=== PATIENT | female | born 1945 | race Caucasian/White ===

== ENCOUNTER → 2016-09-10 | Outpatient (CLI) | payer MEDICARE, MEDICAID ==
[~2016-09-10] MED LIST: ADV500INH INH; ASPI81CH PO; CELE-19 PO; CRES40TA PO; DRIS50002 PO; FLON0.054; I-VITAB PO; LANO250T9 PO; LIDO5DIS36 TD; LOPR50TA PO; MOM30SS PO; MUCI600T34 PO; NICO7DIS4 TD; NORT25CA2 PO; OMEP40CA2 PO; PAXI20TA3 PO; PERC10TA17 PO; PROA1AER INH; PROVENTIL; QNAS80AE; RAMI5CA PO; SING10TA32 PO; SPIR1CAP INH; TYLE325T5 PO; XANA0.25 PO; XARE20TA PO
--- NOTE | 2016-09-10 11:34 | REP ---
Clinical: COPD. Technique: PA and lateral. Comparison: 07/19/2014. Findings: Mediastinum and cardiac silhouette are stable. Lung mclean demonstrate chronic interstitial changes and fibrosis. Evidence for old healed left rib fractures with associated pleural thickening as well as centrally calcified granuloma in the right mid lung zone stable compared to 2013. No obvious acute consolidation, effusion, or pneumothorax. Impression: Chronic stable changes. No obvious acute cardiopulmonary process. Signed by Raciel Cardenas MD 09/10/2016 11:25 A
== END ==
LOC: M SMT 10:48
PROVIDERS: ATTEND Internal Medicine Pulmonary Disease
DX: J44.9 Chronic obstructive pulmonary disease, unspecified (principal)

== ENCOUNTER → 2016-09-11 | Outpatient (REF) | payer MEDICARE, MEDICAID ==
[~2016-09-11] MED LIST changes: +LANO250T12 PO; -LANO250T9 PO; +LOPR1TAB6 PO; -LOPR50TA PO
[2016-09-11 12:44] LABS: BASO % 0.5 % (0.0-1.0); EOS # 0.1 K/mm3 (0.0-0.50); EOS % 1.4 % (0.0-3.0); LARGE UNSTAINED CELL # 0.1 K/mm3 (0.0-0.4); LARGE UNSTAINED CELL % 0.9 % (0.0-4.0); LYMPH # 1.2 K/mm3 (1.5-4.5); LYMPH % 13.6 % (24.0-44.0); MEAN CORPUSCULAR HEMOGLOBIN 29.9 pg (27.0-33.0); MEAN CORPUSCULAR HGB CONC 33.5 g/dl (32.0-36.5); MEAN CORPUSCULAR VOLUME 89.2 fl (80.0-96.0); MONO # 0.5 K/mm3 (0.0-0.8); MONO % 5.7 % (0.0-5.0); NEUTROPHILS # 7.1 K/mm3 (1.8-7.7); NEUTROPHILS % 77.9 % (36.0-66.0); PLATELET COUNT, AUTOMATED 275 k/mm3 (150-450); RED CELL DISTRIBUTION WIDTH 13.3 % (11.5-14.5); WHITE BLOOD COUNT 9.1 K/mm3 (4.0-10.0)
[2016-09-11 13:07] LABS: ALBUMIN 3.3 GM/DL (3.2-5.2); ALKALINE PHOSPHATASE 109 U/L (45-117); ALT/SGPT 20 U/L (12-78); ANION GAP 10 MEQ/L (8-16); AST/SGOT 18 U/L (15-37); BILIRUBIN,TOTAL 0.4 MG/DL (0.2-1.0); BLOOD UREA NITROGEN 9 MG/DL (7-18); CALCIUM LEVEL 9.1 MG/DL (8.8-10.2); CARBON DIOXIDE LEVEL 30 MEQ/L (21-32); CHLORIDE LEVEL 101 MEQ/L (98-107); CHOLESTEROL LEVEL 173 MG/DL (<200); CREATININE FOR GFR 0.63 MG/DL (0.55-1.02); GLOMERULAR FILTRATION RATE > 60.0 (>39); GLUCOSE, FASTING 120 MG/DL (83-110); POTASSIUM SERUM 4.2 MEQ/L (3.5-5.1); SODIUM LEVEL 141 MEQ/L (136-145); TOTAL PROTEIN 6.6 GM/DL (6.4-8.2); TRIGLYCERIDES LEVEL 246 MG/DL (<150)
== END ==
LOC: M SFHCPLAZ 09:35
PROVIDERS: ATTEND Family Medicine
DX: D48.9 Neoplasm of uncertain behavior, unspecified (principal); Z79.891 Long term (current) use of opiate analgesic; Z79.899 Other long term (current) drug therapy

== ENCOUNTER → 2016-11-20 | Outpatient (REF) | payer MEDICARE, MEDICAID ==
[2016-11-20 16:05] LABS: BASO % 0.5 % (0.0-1.0); EOS # 0.2 K/mm3 (0.0-0.50); EOS % 3.5 % (0.0-3.0); LARGE UNSTAINED CELL # 0.1 K/mm3 (0.0-0.4); LARGE UNSTAINED CELL % 1.3 % (0.0-4.0); LYMPH # 1.9 K/mm3 (1.5-4.5); LYMPH % 25.7 % (24.0-44.0); MEAN CORPUSCULAR HEMOGLOBIN 29.8 pg (27.0-33.0); MEAN CORPUSCULAR HGB CONC 33.3 g/dl (32.0-36.5); MEAN CORPUSCULAR VOLUME 89.6 fl (80.0-96.0); MONO # 0.5 K/mm3 (0.0-0.8); MONO % 6.3 % (0.0-5.0); NEUTROPHILS # 4.5 K/mm3 (1.8-7.7); NEUTROPHILS % 62.7 % (36.0-66.0); PLATELET COUNT, AUTOMATED 384 k/mm3 (150-450); RED CELL DISTRIBUTION WIDTH 13.4 % (11.5-14.5); WHITE BLOOD COUNT 7.2 K/mm3 (4.0-10.0)
[2016-11-20 16:47] LABS: VITAMIN B12 LEVEL > 2000 PG/ML (247-911)
[2016-11-20 16:49] LABS: DIGOXIN LEVEL 1.3 NG/ML (0.5-2.0); FERRITIN 214 NG/ML (8-252); TOTAL IRON BINDING CAPACITY 303 UG/DL (250-450)
== END ==
LOC: M SFHCPLAZ 13:16
PROVIDERS: ATTEND Family Medicine
DX: I10 Essential (primary) hypertension (principal); Z79.899 Other long term (current) drug therapy

== ENCOUNTER → 2016-12-22 | Outpatient (REF) | payer MEDICARE, MEDICAID ==
[~2016-12-22] MED LIST changes: -LANO250T12 PO; +LANO250T15 PO
[2016-12-22 16:27] LABS: ALBUMIN 3.1 GM/DL (3.2-5.2); ALBUMIN/GLOBULIN RATIO 0.89 (1.00-1.93); ALKALINE PHOSPHATASE 136 U/L (45-117); ALT/SGPT 34 U/L (12-78); ANION GAP 7 MEQ/L (8-16); AST/SGOT 20 U/L (15-37); BILIRUBIN,TOTAL 0.2 MG/DL (0.2-1.0); BLOOD UREA NITROGEN 6 MG/DL (7-18); CALCIUM LEVEL 8.7 MG/DL (8.8-10.2); CARBON DIOXIDE LEVEL 27 MEQ/L (21-32); CHLORIDE LEVEL 104 MEQ/L (98-107); FREE T4 0.96 NG/DL (0.76-1.46); GLOMERULAR FILTRATION RATE > 60.0 (>39); GLUCOSE, FASTING 127 MG/DL (83-110); POTASSIUM SERUM 4.3 MEQ/L (3.5-5.1); SODIUM LEVEL 138 MEQ/L (136-145); TOTAL PROTEIN 6.6 GM/DL (6.4-8.2)
== END ==
LOC: M LABDRAW1 14:38
PROVIDERS: ATTEND Family Medicine
DX: E55.9 Vitamin D deficiency, unspecified (principal); E78.5 Hyperlipidemia, unspecified; I48.91 Unspecified atrial fibrillation; R73.01 Impaired fasting glucose

== ENCOUNTER → 2017-01-08 | Outpatient (CLI) | payer MEDICARE ==
[~2017-01-08] MED LIST changes: +CONRAY-43 43% 50ML VIAL (Q9960) As Ordered ONE; +LIDOCAINE 1% MDV 20ML VIAL As Ordered ONE; +TRIAMCINOLONE ACETONIDE SUSP 40 MG/ML VIAL (J3301) As Ordered ONE
--- NOTE | 2017-01-08 17:47 | REP ---
RIGHT HIP INJECTION: The procedure was performed under the direct supervision of Dr. Robledo. The benefits and risks including but not limited to pain, infection, bleeding, and anaphylaxis were explained to the patient and informed consent was obtained. The right femoral neck was localized using fluoroscopic guidance. The skin was prepped and draped in a sterile fashion. 1% Lidocaine was used as a local anesthetic. Using fluoroscopic guidance a 22-gauge spinal needle was inserted and advanced to the femoral neck. 0.5 mL of Conray-43 was injected to verify placement. 6 mL of a solution containing 5 mL of 1% Lidocaine and 1 mL of Kenalog 40 mg was injected. The needle was then removed. The patient tolerated the procedure well and there were no immediate complications. 3 second of fluoroscopic time was utilized for this procedure. Reviewed by MARINA Hill 01/09/2017 04:55 PEdited and Signed by Ronny Robledo MD 01/09/2017 07:53 P
== END | disposition home or self-care (01) ==
LOC: M RADPRO 10:38
PROVIDERS: ATTEND Family Medicine
DX: M16.11 Unilateral primary osteoarthritis, right hip (principal)
CPT/HCPCS: 20610; 77002; J3301; Q9960

== ENCOUNTER → 2017-04-06 | Outpatient (REF) | payer MEDICARE, MEDICAID ==
[~2017-04-06] MED LIST changes: -CELE-19 PO; +CELE1CAP4 PO; -CONRAY-43 43% 50ML VIAL (Q9960) As Ordered ONE; -LIDO5DIS36 TD; +LIDO5DIS41 TD; -LIDOCAINE 1% MDV 20ML VIAL As Ordered ONE; -MUCI600T34 PO; +MUCI600T37 PO; +PAXI20TA29 PO; -PAXI20TA3 PO; -PERC10TA17 PO; +PERC10TA26 PO; -PROA1AER INH; +PROAAER10 INH; -TRIAMCINOLONE ACETONIDE SUSP 40 MG/ML VIAL (J3301) As Ordered ONE
[2017-04-06 12:46] LABS: BASO % 0.4 % (0.0-1.0); EOS # 0.1 K/mm3 (0.0-0.50); EOS % 1.6 % (0.0-3.0); LARGE UNSTAINED CELL # 0.1 K/mm3 (0.0-0.4); LARGE UNSTAINED CELL % 1.1 % (0.0-4.0); LYMPH # 1.4 K/mm3 (1.5-4.5); LYMPH % 18.9 % (24.0-44.0); MEAN CORPUSCULAR HEMOGLOBIN 30.6 pg (27.0-33.0); MEAN CORPUSCULAR HGB CONC 33.7 g/dl (32.0-36.5); MEAN CORPUSCULAR VOLUME 90.7 fl (80.0-96.0); MONO # 0.4 K/mm3 (0.0-0.8); MONO % 4.9 % (0.0-5.0); NEUTROPHILS # 5.4 K/mm3 (1.8-7.7); NEUTROPHILS % 73.1 % (36.0-66.0); PLATELET COUNT, AUTOMATED 313 k/mm3 (150-450); RED CELL DISTRIBUTION WIDTH 13.5 % (11.5-14.5); WHITE BLOOD COUNT 7.4 K/mm3 (4.0-10.0)
[2017-04-06 13:19] LABS: ALBUMIN 3.4 GM/DL (3.2-5.2); ALBUMIN/GLOBULIN RATIO 0.97 (1.00-1.93); ALKALINE PHOSPHATASE 120 U/L (45-117); ALT/SGPT 39 U/L (12-78); ANION GAP 7 MEQ/L (8-16); AST/SGOT 32 U/L (15-37); BILIRUBIN,TOTAL 0.5 MG/DL (0.2-1.0); BLOOD UREA NITROGEN 9 MG/DL (7-18); CALCIUM LEVEL 9.1 MG/DL (8.8-10.2); CARBON DIOXIDE LEVEL 31 MEQ/L (21-32); CHLORIDE LEVEL 104 MEQ/L (98-107); CREATININE FOR GFR 0.62 MG/DL (0.55-1.02); DIGOXIN LEVEL 1.6 NG/ML (0.5-2.0); FERRITIN 120 NG/ML (8-252); GLOMERULAR FILTRATION RATE > 60.0 (>39); GLUCOSE, FASTING 97 MG/DL (83-110); SODIUM LEVEL 142 MEQ/L (136-145); TOTAL IRON BINDING CAPACITY 343 UG/DL (250-450); TOTAL PROTEIN 6.9 GM/DL (6.4-8.2)
[2017-04-07 08:44] LABS: CARCINOEMBRYONIC ANTIGEN 1.3 NG/ML (<2.5)
== END ==
LOC: M LABDRAW1 11:54
PROVIDERS: ATTEND Family Medicine
DX: R63.4 Abnormal weight loss (principal); I48.91 Unspecified atrial fibrillation; Z79.899 Other long term (current) drug therapy

== ENCOUNTER → 2017-05-14 | Outpatient (CLI) | payer MEDICARE, MEDICAID ==
[~2017-05-14] MED LIST changes: +CONRAY-43 43% 50ML VIAL (Q9960) As Ordered ONE; +LIDOCAINE 1% MDV 20ML VIAL As Ordered ONE; +TRIAMCINOLONE ACETONIDE SUSP 40 MG/ML VIAL (J3301) As Ordered ONE
--- NOTE | 2017-05-14 16:52 | REP ---
Right hip injection The procedure was performed under the direct supervision of Dr. Adams. The benefits and risks including but not limited to pain infection and bleeding and anaphylaxis were explained to the patient and informed consent was obtained. The right femoral neck was localized using fluoroscopic guidance. The skin was prepped and draped in a sterile fashion. 1% lidocaine was used as a local anesthetic. Using fluoroscopic guidance a 22-gauge spinal needle was inserted and advanced to the femoral neck. 0.5 ml of Conray 43 was injected to verify placement. 6 ml of a solution containing 5 ml of 1% Xylocaine and 1 ml of Kenalog 40 mg was injected. The needle was then removed. The patient tolerated the procedure well and there were no immediate complications. 2 seconds of fluoro time was utilized for this procedure. Reviewed by MARINA Hill 05/14/2017 03:00 PSigned by Frankie Adams MD 05/14/2017 04:43 P
== END | disposition home or self-care (01) ==
LOC: M RADPRO 08:47
PROVIDERS: ATTEND Family Medicine
DX: M16.11 Unilateral primary osteoarthritis, right hip (principal)
CPT/HCPCS: 20611; 77002; J3301; Q9960

== ENCOUNTER → 2017-08-19 | Outpatient (REF) | payer MEDICARE, MEDICAID ==
[~2017-08-19] MED LIST changes: -CONRAY-43 43% 50ML VIAL (Q9960) As Ordered ONE; -LIDOCAINE 1% MDV 20ML VIAL As Ordered ONE; -TRIAMCINOLONE ACETONIDE SUSP 40 MG/ML VIAL (J3301) As Ordered ONE
[2017-08-19 15:54] LABS: BASO % 0.6 % (0.0-1.0); EOS # 0.1 10^3/uL (0.0-0.50); EOS % 1.5 % (0.0-3.0); IMMATURE GRANULOCYTE % 0.3 % (0-0); LYMPH # 1.6 10^3/uL (1.5-4.5); LYMPH % 22.3 % (24.0-44.0); MEAN CORPUSCULAR HGB CONC 33.3 g/dl (32.0-36.5); MEAN CORPUSCULAR VOLUME 89.9 fl (80.0-96.0); MONO # 0.6 10^3/uL (0.0-0.8); MONO % 7.9 % (0.0-5.0); NEUTROPHILS # 4.9 10^3/uL (1.8-7.7); NEUTROPHILS % 67.4 % (36.0-66.0); PLATELET COUNT, AUTOMATED 311 10^3/uL (150-450); RED CELL DISTRIBUTION WIDTH 13.6 % (11.5-14.5); WHITE BLOOD COUNT 7.2 10^3/uL (4.0-10.0)
[2017-08-19 16:11] LABS: ALBUMIN 3.3 GM/DL (3.2-5.2); ALBUMIN/GLOBULIN RATIO 0.94 (1.00-1.93); ALKALINE PHOSPHATASE 97 U/L (45-117); ALT/SGPT 23 U/L (12-78); ANION GAP 5 MEQ/L (8-16); AST/SGOT 15 U/L (7-37); BILIRUBIN,TOTAL 0.3 MG/DL (0.2-1.0); BLOOD UREA NITROGEN 7 MG/DL (7-18); CALCIUM LEVEL 9.2 MG/DL (8.8-10.2); CARBON DIOXIDE LEVEL 32 MEQ/L (21-32); CHLORIDE LEVEL 105 MEQ/L (98-107); CREATININE FOR GFR 0.54 MG/DL (0.55-1.02); GLOMERULAR FILTRATION RATE > 60.0 (>39); GLUCOSE, FASTING 120 MG/DL (83-110); POTASSIUM SERUM 3.8 MEQ/L (3.5-5.1); SODIUM LEVEL 142 MEQ/L (136-145); TOTAL PROTEIN 6.8 GM/DL (6.4-8.2)
[2017-08-19 16:19] LABS: ERYTHROCYTE SEDIMENTATION RATE 17 mm/hr (0-30)
== END ==
LOC: M LABDRAW1 15:36
PROVIDERS: ATTEND Family Medicine
DX: R73.01 Impaired fasting glucose (principal); R63.4 Abnormal weight loss; J44.9 Chronic obstructive pulmonary disease, unspecified

== ENCOUNTER → 2017-08-20 | Outpatient (CLI) | payer MEDICARE, MEDICAID ==
--- NOTE | 2017-08-21 05:45 | REP ---
NONCONTRAST CT OF THE ABDOMEN AND PELVIS: CLINICAL: Right lower quadrant pain. COMPARISON: 02/03/2006. FINDINGS: Lung bases are clear. Atherosclerotic changes to the coronary arteries and aorta are identified without aortic aneurysm. Liver, spleen, pancreas, bilateral adrenal glands are normal for noncontrast evaluation. The right kidney is unremarkable. Left kidney includes 2 mm nonobstructing intrarenal calculus. There is no hydronephrosis or perinephric stranding. Evaluation of the enteric system is without obstruction or acute inflammatory process. Colonic and sigmoid diverticulosis noted without acute diverticulitis. A ventral hernia along the lateral aspect of the right rectus muscle measures approximately 4.0 cm and includes small amount of fat and fluid (images 77-96). Pelvis demonstrates normal bladder and age appropriate uterus/adnexa. No ascites. No adenopathy. No free air. Atherosclerotic changes to the abdominal aorta and vasculature without aneurysm. Musculoskeletal structures demonstrate age related degenerative changes without focal osseous abnormality. Calcifications and surgical clips are identified in the midline infraumbilical subcutaneous tissue which remains stable and may be related to prior surgery and chronic hernia. IMPRESSION: 1. Small 4 cm fat containing Spigelian hernia along the lateral aspect of the right rectus muscle at the level of the pelvis possibly related to patient's symptoms. 2. Diverticulosis without acute diverticulitis. 3. Further chronic changes as described above. Signed by Raciel Cardenas MD 08/22/2017 08:46 A
== END ==
LOC: M RAD 14:31
PROVIDERS: ATTEND Family Medicine
DX: R10.31 Right lower quadrant pain (principal); K57.30 Diverticulosis of large intestine without perforation or abscess without bleeding

== ENCOUNTER → 2017-10-28 | Outpatient (REF) | payer MEDICARE, MEDICAID ==
[2017-10-28 16:05] LABS: BASO % 0.4 % (0.0-1.0); EOS # 0.1 10^3/uL (0.0-0.50); EOS % 1.1 % (0.0-3.0); HEMATOCRIT 44.2 % (36.0-47.0); HEMOGLOBIN 14.4 g/dl (12.0-16.0); IMMATURE GRANULOCYTE % 0.2 % (0-3.0); LYMPH # 1.6 10^3/uL (1.5-4.5); LYMPH % 19.1 % (24.0-44.0); MEAN CORPUSCULAR HEMOGLOBIN 29.2 pg (27.0-33.0); MEAN CORPUSCULAR HGB CONC 32.6 g/dl (32.0-36.5); MEAN CORPUSCULAR VOLUME 89.7 fl (80.0-96.0); MONO # 0.6 10^3/uL (0.0-0.8); MONO % 7.3 % (0.0-5.0); NEUTROPHILS # 5.9 10^3/uL (1.8-7.7); NEUTROPHILS % 71.9 % (36.0-66.0); PLATELET COUNT, AUTOMATED 317 10^3/uL (150-450); RED BLOOD COUNT 4.93 10^6/uL (4.00-5.40); RED CELL DISTRIBUTION WIDTH 13.4 % (11.5-14.5); WHITE BLOOD COUNT 8.3 10^3/uL (4.0-10.0)
[2017-10-28 16:24] LABS: INR 1.23; PROTHROMBIN TIME 15.7 SECONDS (12.4-14.5)
[2017-10-28 16:25] LABS: PARTIAL THROMBOPLASTIN TIME 34.6 SECONDS (26.8-37.9)
[2017-10-28 16:26] LABS: ESTIMATED AVERAGE GLUCOSE 137 MG/DL (60-110); HEMOGLOBIN A1c 6.4 %
[2017-10-28 16:31] LABS: ALBUMIN 3.5 GM/DL (3.2-5.2); ALBUMIN/GLOBULIN RATIO 1.06 (1.00-1.93); ALKALINE PHOSPHATASE 122 U/L (45-117); ALT/SGPT 18 U/L (12-78); ANION GAP 6 MEQ/L (8-16); AST/SGOT 16 U/L (7-37); BILIRUBIN,TOTAL 0.4 MG/DL (0.2-1.0); BLOOD UREA NITROGEN 7 MG/DL (7-18); CALCIUM LEVEL 9.2 MG/DL (8.8-10.2); CARBON DIOXIDE LEVEL 30 MEQ/L (21-32); CHLORIDE LEVEL 107 MEQ/L (98-107); GLOMERULAR FILTRATION RATE > 60.0 (>39); GLUCOSE, FASTING 75 MG/DL (70-100); MAGNESIUM LEVEL 2.1 MG/DL (1.8-2.4); POTASSIUM SERUM 4.6 MEQ/L (3.5-5.1); SODIUM LEVEL 143 MEQ/L (136-145); TOTAL PROTEIN 6.8 GM/DL (6.4-8.2)
== END ==
LOC: M LABDRAW1 15:39
DX: Z01.818 Encounter for other preprocedural examination (principal); Z79.899 Other long term (current) drug therapy
CPT/HCPCS: 83735

== ENCOUNTER → 2017-12-11 | Outpatient (CLI) | payer MEDICARE, MEDICAID ==
[~2017-12-11] MED LIST changes: -ADV500INH INH; -ASPI81CH PO; -CELE1CAP4 PO; +CONRAY-43 43% 50ML VIAL (Q9960) As Ordered; -CRES40TA PO; -DRIS50002 PO; -FLON0.054; -I-VITAB PO; -LANO250T15 PO; -LIDO5DIS41 TD; +LIDOCAINE 1% MDV 20ML VIAL As Ordered; -LOPR1TAB6 PO; -MOM30SS PO; -MUCI600T37 PO; -NICO7DIS4 TD; -NORT25CA2 PO; -OMEP40CA2 PO; -PAXI20TA29 PO; -PERC10TA26 PO; -PROAAER10 INH; -PROVENTIL; -QNAS80AE; -RAMI5CA PO; -SING10TA32 PO; -SPIR1CAP INH; +TRIAMCINOLONE ACETONIDE SUSP 40 MG/ML VIAL (J3301) As Ordered; -TYLE325T5 PO; -XANA0.25 PO; -XARE20TA PO
== END ==
LOC: M RADPRO 10:04
DX: M16.11 Unilateral primary osteoarthritis, right hip (principal)
CPT/HCPCS: 20610

== ENCOUNTER 2018-01-08 09:43 | Day surgery (SDC) | payer MEDICARE, MEDICAID ==
[2018-01-08] MEDS: LR 1,000 ML IV ×4 (10:41→16:45)
[2018-01-08] MEDS ORDERED: LEVALBUTEROL 1.25 MG/0.5 ML CONCENTRATE NEB As Ordered ×2 (11:17)
[2018-01-08] MEDS ORDERED: ROCURONIUM BROMIDE 50 MG/5 ML VIAL As Ordered ×2 (11:30)
[2018-01-08] MEDS ORDERED: METOCLOPRAMIDE INJ 10MG/2ML VIAL (J2765) As Ordered ×2 (11:30)
[2018-01-08] MEDS ORDERED: fentaNYL 100 MCG/2 ML INJECTION (J3010) As Ordered ×2 (11:30)
[2018-01-08] MEDS ORDERED: ONDANSETRON 4MG/2ML VIAL (J2405) As Ordered ×2 (11:30)
[2018-01-08] MEDS ORDERED: MIDAZOLAM INJ 2 MG/2 ML VIAL (J2250) As Ordered ×2 (11:30)
[2018-01-08] MEDS ORDERED: PROPOFOL 200 MG/20 ML VIAL As Ordered ×2 (11:30)
[2018-01-08] MEDS ORDERED: LIDOCAINE 2% INJ 100 MG/5 ML SDV (FOR ANES.) As Ordered ×2 (11:30)
[2018-01-08] MEDS: LEVALBUTEROL 1.25 MG/0.5 ML CONCENTRATE NEB INH ×2 (11:38)
[2018-01-08] MEDS: BUPIVACAINE LIPOSOME/PF 1.3% 20 ML VIAL (13.3MG/ML)(EXPAREL) As Ordered ×2 (11:52)
[2018-01-08] MEDS ORDERED: HYDROmorphone HCL 2 MG/ML 1ML VIAL (J1170) As Ordered ×2 (14:53)
[2018-01-08] MEDS ORDERED: ESMOLOL INJ 100MG/10ML VIAL As Ordered ×2 (15:01)
[2018-01-08] MEDS: BUPIVACAINE HCL 0.25% 30 ML VIAL As Ordered ×2 (15:13)
[2018-01-08] MEDS ORDERED: LABETALOL HCL 100 MG/20 ML VIAL As Ordered ×2 (15:57)
[2018-01-08] MEDS: LABETALOL HCL 100 MG/20 ML VIAL IV ×4 (15:58→16:05)
[2018-01-08] MEDS: LEVALBUTEROL 1.25 MG/0.5 ML CONCENTRATE NEB NEB ×2 (16:00)
[2018-01-08] MEDS ORDERED: fentaNYL 100 MCG/2 ML INJECTION (J3010) IV ×2 (16:45)
[2018-01-08] MEDS ORDERED: ONDANSETRON 4MG/2ML VIAL (J2405) IV ×2 (16:45)
[2018-01-08] MEDS ORDERED: PERCOCET 5MG/325MG TAB PO ×2 (16:45)
[2018-01-08] MEDS ORDERED: ACETAMINOPHEN TAB 650MG DOSE (2X325MG) PO ×2 (16:45)
[2018-01-08] MEDS ORDERED: HYDROMORPHONE HCL 0.5 MG/ 0.5 ML SYRINGE (J1170 PER 1) IV ×2 (16:45)
[2018-01-08] MEDS: NORCO, ANEXSIA 5/325MG TABLET (HYDROcodone/ACETAMINOPHEN) PO ×2 (20:28)
[2018-01-08] MEDS ORDERED: OMEPRAZOLE 20 MG CAP PO ×2 (21:45)
[2018-01-08] MEDS ORDERED: ALBUTEROL 90 MCG/ACT 8GM HFA INHALER INH ×2 (21:45)
[2018-01-09] MEDS: NORCO, ANEXSIA 5/325MG TABLET (HYDROcodone/ACETAMINOPHEN) PO ×4 (05:43→10:44)
[2018-01-09] MEDS: ADVAIR HFA 230/21MCG INHALER INH ×2 (07:45)
[2018-01-09] MEDS ORDERED: FLUTICASONE PROP 0.05% NASAL SPRAY 16 GM (FLONASE) ×2 (09:00)
[2018-01-09] MEDS: GABAPENTIN 300 MG CAP PO ×2 (10:43)
[2018-01-09] MEDS: METOPROLOL TART 50 MG TAB PO ×2 (10:43)
[2018-01-09] MEDS: DIGOXIN 0.25 MG TAB PO ×2 (10:45)
[2018-01-09] MEDS: PREVNAR 13 VACCINE SYRINGE (CPT CODE:90670) IM ×2 (14:15)
== END 2018-01-09 14:25 | disposition home or self-care (01) ==
LOC: M SDC 09:43 → M MSPAV 19:15
DX: K43.6 Other and unspecified ventral hernia with obstruction, without gangrene (principal); I48.91 Unspecified atrial fibrillation; I50.30 Unspecified diastolic (congestive) heart failure; G47.30 Sleep apnea, unspecified; I27.20 Pulmonary hypertension, unspecified; J44.9 Chronic obstructive pulmonary disease, unspecified; Z79.899 Other long term (current) drug therapy; Z79.02 Long term (current) use of antithrombotics/antiplatelets; M81.0 Age-related osteoporosis without current pathological fracture; F17.210 Nicotine dependence, cigarettes, uncomplicated; Z88.0 Allergy status to penicillin; F32.9 Major depressive disorder, single episode, unspecified; F41.9 Anxiety disorder, unspecified
CPT/HCPCS: 49653

== ENCOUNTER → 2018-02-23 | Outpatient (REF) | payer MEDICARE, MEDICAID ==
[2018-02-23 14:03] LABS: BASO % 0.2 % (0.0-1.0); EOS # 0.1 10^3/uL (0.0-0.50); HEMATOCRIT 40.9 % (36.0-47.0); HEMOGLOBIN 13.2 g/dl (12.0-15.5); IMMATURE GRANULOCYTE % 0.3 % (0-3.0); LYMPH # 1.1 10^3/uL (1.5-4.5); MEAN CORPUSCULAR HEMOGLOBIN 28.9 pg (27.0-33.0); MEAN CORPUSCULAR HGB CONC 32.3 g/dl (32.0-36.5); MEAN CORPUSCULAR VOLUME 89.5 fl (80.0-96.0); MONO # 0.6 10^3/uL (0.0-0.8); MONO % 5.3 % (0.0-5.0); NEUTROPHILS # 9.5 10^3/uL (1.8-7.7); NEUTROPHILS % 83.2 % (36.0-66.0); PLATELET COUNT, AUTOMATED 280 10^3/uL (150-450); RED BLOOD COUNT 4.57 10^6/uL (4.00-5.40); RED CELL DISTRIBUTION WIDTH 14.7 % (11.5-14.5); WHITE BLOOD COUNT 11.4 10^3/uL (4.0-10.0)
[2018-02-23 14:38] LABS: ALBUMIN 3.2 GM/DL (3.2-5.2); ALBUMIN/GLOBULIN RATIO 0.94 (1.00-1.93); ALKALINE PHOSPHATASE 105 U/L (45-117); ALT/SGPT 20 U/L (12-78); ANION GAP 4 MEQ/L (8-16); AST/SGOT 13 U/L (7-37); BILIRUBIN,TOTAL 0.3 MG/DL (0.2-1.0); BLOOD UREA NITROGEN 9 MG/DL (7-18); CALCIUM LEVEL 8.9 MG/DL (8.8-10.2); CARBON DIOXIDE LEVEL 32 MEQ/L (21-32); CHLORIDE LEVEL 105 MEQ/L (98-107); CREATININE FOR GFR 0.58 MG/DL (0.55-1.30); DIGOXIN LEVEL 1.6 NG/ML (0.5-2.0); GLOMERULAR FILTRATION RATE > 60.0 (>39); GLUCOSE, FASTING 126 MG/DL (70-100); SODIUM LEVEL 141 MEQ/L (136-145); TOTAL PROTEIN 6.6 GM/DL (6.4-8.2)
== END ==
LOC: M SFHCPLAZ 12:12
DX: R63.4 Abnormal weight loss (principal); Z79.899 Other long term (current) drug therapy
CPT/HCPCS: 80162

== ENCOUNTER 2018-05-19 05:45 | Inpatient (IN) | payer MEDICARE, MEDICAID ==
[2018-05-19] MEDS ORDERED: LR 1,000 ML IV (06:00)
[2018-05-19] MEDS: ACETAMINOPHEN 500 MG TAB PO (06:30)
[2018-05-19 06:46] LABS: GLUCOSE, FASTING 83 MG/DL (70-100)
[2018-05-19] MEDS: VANCOMYCIN HCL 1,000 MG, VIAL MATE ADAPTER 1 EACH in D5W 250 ML IV ×2 (07:00→18:26)
[2018-05-19] MEDS: TRANEXAMIC ACID 100 MG/ML 10ML VIAL As Ordered (07:12)
[2018-05-19] MEDS: EPINEPHrine INJ 1 MG/ML 1ML AMP As Ordered (07:13)
[2018-05-19] MEDS ORDERED: ALBUTEROL SULFATE 2.5 MG/0.5 ML INH NEB SOLN As Ordered (07:14)
[2018-05-19] MEDS: CLINDAMYCIN INJ 900MG/6ML VIAL As Ordered (08:19)
[2018-05-19] MEDS ORDERED: ROCURONIUM BROMIDE 50 MG/5 ML VIAL As Ordered (08:32)
[2018-05-19] MEDS ORDERED: ETOMIDATE INJ 20MG/10ML VIAL As Ordered (08:32)
[2018-05-19] MEDS ORDERED: LIDOCAINE 2% INJ 100 MG/5 ML SDV (FOR ANES.) As Ordered (08:32)
[2018-05-19] MEDS ORDERED: fentaNYL 100 MCG/2 ML INJECTION (J3010) As Ordered ×3 (08:32→10:44)
[2018-05-19] MEDS ORDERED: dexameTHASONE 4 MG/ML 1ML VIAL (J1100) As Ordered (08:32)
[2018-05-19] MEDS ORDERED: MIDAZOLAM INJ 2 MG/2 ML VIAL (J2250) As Ordered (08:32)
[2018-05-19] MEDS ORDERED: PROPOFOL 200 MG/20 ML VIAL As Ordered ×2 (08:32→09:38)
[2018-05-19] MEDS ORDERED: LABETALOL HCL 100 MG/20 ML VIAL As Ordered (08:35)
[2018-05-19] MEDS: LORATADINE 10 MG TAB PO (09:00)
[2018-05-19] MEDS ORDERED: ONDANSETRON 4MG/2ML VIAL (J2405) As Ordered (09:00)
[2018-05-19] MEDS ORDERED: MORPHINE 1MG/ML IN 0.9% NACL 100ML IV BAG As Ordered (09:11)
[2018-05-19] MEDS ORDERED: SUGAMMADEX SODIUM 500 MG/5 ML VIAL (BRIDION) As Ordered (09:38)
[2018-05-19] MEDS: fentaNYL 100 MCG/2 ML INJECTION (J3010) IV ×4 (09:44→09:59)
[2018-05-19] MEDS ORDERED: PERCOCET 5MG/325MG TAB As Ordered (09:49)
[2018-05-19] MEDS: PERCOCET 5MG/325MG TAB PO ×2 (09:50→23:15)
[2018-05-19] MEDS ORDERED: HYDROMORPHONE HCL 0.5 MG/ 0.5 ML SYRINGE (J1170 PER 1) As Ordered (09:52)
[2018-05-19] MEDS: LR 1,000 ML IV ×2 (10:00→11:15)
[2018-05-19] MEDS ORDERED: ONDANSETRON 4MG/2ML VIAL (J2405) IV ×3 (10:00→23:15)
[2018-05-19] MEDS: ALBUTEROL SULFATE 2.5 MG/0.5 ML INH NEB SOLN INH (10:00)
[2018-05-19] MEDS ORDERED: METOCLOPRAMIDE INJ 10MG/2ML VIAL (J2765) IV (10:00)
[2018-05-19] MEDS: HYDROMORPHONE HCL 0.5 MG/ 0.5 ML SYRINGE (J1170 PER 1) IV ×2 (10:04→10:10)
[2018-05-19] MEDS: MORPHINE 1MG/ML IN 0.9% NACL 100ML IV BAG IV (10:15)
[2018-05-19] MEDS ORDERED: diphenhydrAMINE INJ 50MG/ML VIAL (J1200) IV (10:45)
[2018-05-19] MEDS ORDERED: NALOXONE INJ 0.4 MG/1 ML VIAL (J2310) IV (10:45)
[2018-05-19] MEDS ORDERED: NALBUPHINE HCL 10 MG/ML AMP (J2300) IV (10:45)
[2018-05-19] MEDS ORDERED: EPIDURAL/PCA KEYS XX (10:45)
[2018-05-19] MEDS ORDERED: FLEET ENEMA PR (11:15)
[2018-05-19] MEDS ORDERED: ACETAMINOPHEN TAB 650MG DOSE (2X325MG) PO (11:15)
[2018-05-19] MEDS ORDERED: ALBUTEROL SULFATE 2.5 MG/0.5 ML INH NEB SOLN NEB (16:45)
[2018-05-19] MEDS: OLOPATADINE 0.1% OPHTH SOL 5ML(PATANOL) OU (17:00)
[2018-05-19] MEDS: IPRATROPIUM 0.5MG/ALBUTEROL 2.5MG INH SOL UD 3ML (DUONEB)(J7620) NEB (20:00)
[2018-05-19] MEDS: LACTULOSE 20 GM/30 ML SYRUP UD PO (20:04)
[2018-05-19] MEDS: GABAPENTIN 300 MG CAP PO (20:05)
[2018-05-19] MEDS: METOPROLOL TART 25 MG TABLET PO (20:05)
[2018-05-19] MEDS: OMEPRAZOLE 20 MG CAP PO (20:05)
[2018-05-19] MEDS: ROSUVASTATIN 10 MG TAB (CRESTOR) PO (20:05)
[2018-05-19] MEDS: ADVAIR HFA 230/21MCG INHALER INH (21:00)
[2018-05-19] MEDS ORDERED: PERCOCET 5MG/325MG TAB PO (23:15)
[2018-05-20] MEDS: IPRATROPIUM 0.5MG/ALBUTEROL 2.5MG INH SOL UD 3ML (DUONEB)(J7620) NEB ×4 (02:00→20:11)
[2018-05-20] MEDS: PERCOCET 5MG/325MG TAB PO (04:43)
[2018-05-20] MEDS ORDERED: ACETAMINOPHEN 500 MG TAB PO (06:30)
[2018-05-20] MEDS: VANCOMYCIN HCL 1,000 MG, VIAL MATE ADAPTER 1 EACH in D5W 250 ML IV (06:36)
[2018-05-20 06:46] LABS: HEMATOCRIT 38.9 % (36.0-47.0); HEMOGLOBIN 12.6 g/dl (12.0-15.5); MEAN CORPUSCULAR HEMOGLOBIN 29.2 pg (27.0-33.0); MEAN CORPUSCULAR HGB CONC 32.4 g/dl (32.0-36.5); PLATELET COUNT, AUTOMATED 251 10^3/uL (150-450); RED BLOOD COUNT 4.32 10^6/uL (4.00-5.40); RED CELL DISTRIBUTION WIDTH 14.2 % (11.5-14.5)
[2018-05-20 07:18] LABS: ANION GAP 8 MEQ/L (8-16); BLOOD UREA NITROGEN 9 MG/DL (7-18); CALCIUM LEVEL 9.2 MG/DL (8.8-10.2); CARBON DIOXIDE LEVEL 29 MEQ/L (21-32); CHLORIDE LEVEL 105 MEQ/L (98-107); CREATININE FOR GFR 0.52 MG/DL (0.55-1.30); GLOMERULAR FILTRATION RATE > 60.0 (>39); GLUCOSE, FASTING 110 MG/DL (70-100); SODIUM LEVEL 142 MEQ/L (136-145)
[2018-05-20] MEDS: ADVAIR HFA 230/21MCG INHALER INH ×2 (08:07→20:11)
[2018-05-20] MEDS: LORATADINE 10 MG TAB PO (09:00)
[2018-05-20] MEDS: DIGOXIN 0.125 MG TAB PO (09:00)
[2018-05-20] MEDS: METOPROLOL TART 25 MG TABLET PO ×2 (09:00→21:02)
[2018-05-20] MEDS: GABAPENTIN 300 MG CAP PO ×2 (09:00→21:00)
[2018-05-20] MEDS: MIRALAX *UNIT DOSE* 17GM PACKET PO (09:36)
[2018-05-20] MEDS: LACTULOSE 20 GM/30 ML SYRUP UD PO ×2 (09:36→21:00)
[2018-05-20] MEDS: MOM 30ML SUSPENSION UDC PO (09:36)
[2018-05-20] MEDS: OMEPRAZOLE 20 MG CAP PO ×2 (09:39→21:00)
[2018-05-20] MEDS: OLOPATADINE 0.1% OPHTH SOL 5ML(PATANOL) OU ×2 (09:43→17:39)
[2018-05-20] MEDS: DICLOFENAC EPOLAMINE 1.3 % PATCH TOP ×2 (10:59→20:59)
[2018-05-20] MEDS: traMADol 50 MG TAB PO ×2 (13:19→21:02)
[2018-05-20] MEDS: RIVAROXABAN 20 MG TAB (XARELTO) PO (17:39)
[2018-05-20] MEDS: NICOTINE 14 MG/24 HR TRANSDERMAL TD (17:49)
[2018-05-20] MEDS: ROSUVASTATIN 10 MG TAB (CRESTOR) PO (21:00)
[2018-05-21] MEDS: IPRATROPIUM 0.5MG/ALBUTEROL 2.5MG INH SOL UD 3ML (DUONEB)(J7620) NEB ×4 (01:30→20:00)
[2018-05-21] MEDS: traMADol 50 MG TAB PO ×4 (01:59→15:33)
[2018-05-21 05:57] LABS: HEMATOCRIT 34.5 % (36.0-47.0); HEMOGLOBIN 11.6 g/dl (12.0-15.5); MEAN CORPUSCULAR HEMOGLOBIN 29.3 pg (27.0-33.0); MEAN CORPUSCULAR HGB CONC 33.6 g/dl (32.0-36.5); MEAN CORPUSCULAR VOLUME 87.1 fl (80.0-96.0); PLATELET COUNT, AUTOMATED 197 10^3/uL (150-450); RED BLOOD COUNT 3.96 10^6/uL (4.00-5.40); RED CELL DISTRIBUTION WIDTH 14.1 % (11.5-14.5); WHITE BLOOD COUNT 13.6 10^3/uL (4.0-10.0)
[2018-05-21 06:18] LABS: ANION GAP 6 MEQ/L (8-16); BLOOD UREA NITROGEN 9 MG/DL (7-18); CALCIUM LEVEL 8.3 MG/DL (8.8-10.2); CARBON DIOXIDE LEVEL 27 MEQ/L (21-32); CHLORIDE LEVEL 105 MEQ/L (98-107); CREATININE FOR GFR 0.45 MG/DL (0.55-1.30); GLOMERULAR FILTRATION RATE > 60.0 (>39); GLUCOSE, FASTING 109 MG/DL (70-100); POTASSIUM SERUM 3.8 MEQ/L (3.5-5.1); SODIUM LEVEL 138 MEQ/L (136-145)
[2018-05-21] MEDS: ADVAIR HFA 230/21MCG INHALER INH ×2 (08:28→19:57)
[2018-05-21] MEDS: MIRALAX *UNIT DOSE* 17GM PACKET PO (10:19)
[2018-05-21] MEDS: OLOPATADINE 0.1% OPHTH SOL 5ML(PATANOL) OU ×2 (10:20→17:48)
[2018-05-21] MEDS: GABAPENTIN 300 MG CAP PO ×2 (10:20→20:43)
[2018-05-21] MEDS: OMEPRAZOLE 20 MG CAP PO ×2 (10:20→20:43)
[2018-05-21] MEDS: MOM 30ML SUSPENSION UDC PO (10:20)
[2018-05-21] MEDS: LACTULOSE 20 GM/30 ML SYRUP UD PO ×2 (10:20→20:42)
[2018-05-21] MEDS: NICOTINE 14 MG/24 HR TRANSDERMAL TD (10:20)
[2018-05-21] MEDS: LORATADINE 10 MG TAB PO (10:20)
[2018-05-21] MEDS: METOPROLOL TART 25 MG TABLET PO ×2 (10:23→20:43)
[2018-05-21] MEDS: DIGOXIN 0.125 MG TAB PO (10:24)
[2018-05-21] MEDS: DICLOFENAC EPOLAMINE 1.3 % PATCH TOP ×2 (10:25→20:43)
[2018-05-21] MEDS: RIVAROXABAN 20 MG TAB (XARELTO) PO (17:48)
[2018-05-21] MEDS ORDERED: PERCOCET 5MG/325MG TAB PO (18:00)
[2018-05-21] MEDS ORDERED: ACETAMINOPHEN TAB 650MG DOSE (2X325MG) PO (18:15)
[2018-05-21] MEDS: ROSUVASTATIN 10 MG TAB (CRESTOR) PO (20:42)
[2018-05-21] MEDS: PERCOCET 5MG/325MG TAB PO (20:44)
[2018-05-22] MEDS: IPRATROPIUM 0.5MG/ALBUTEROL 2.5MG INH SOL UD 3ML (DUONEB)(J7620) NEB ×4 (02:00→20:00)
[2018-05-22] MEDS: PERCOCET 5MG/325MG TAB PO ×4 (05:04→21:15)
[2018-05-22 07:00] LABS: ANION GAP 5 MEQ/L (8-16); BLOOD UREA NITROGEN 12 MG/DL (7-18); CALCIUM LEVEL 8.5 MG/DL (8.8-10.2); CARBON DIOXIDE LEVEL 29 MEQ/L (21-32); CHLORIDE LEVEL 105 MEQ/L (98-107); CREATININE FOR GFR 0.54 MG/DL (0.55-1.30); GLOMERULAR FILTRATION RATE > 60.0 (>39); GLUCOSE, FASTING 100 MG/DL (70-100); HEMATOCRIT 33.3 % (36.0-47.0); HEMOGLOBIN 10.9 g/dl (12.0-15.5); MEAN CORPUSCULAR HEMOGLOBIN 29.4 pg (27.0-33.0); MEAN CORPUSCULAR HGB CONC 32.7 g/dl (32.0-36.5); MEAN CORPUSCULAR VOLUME 89.8 fl (80.0-96.0); PLATELET COUNT, AUTOMATED 201 10^3/uL (150-450); POTASSIUM SERUM 3.9 MEQ/L (3.5-5.1); RED BLOOD COUNT 3.71 10^6/uL (4.00-5.40); RED CELL DISTRIBUTION WIDTH 14.3 % (11.5-14.5); SODIUM LEVEL 139 MEQ/L (136-145); WHITE BLOOD COUNT 9.6 10^3/uL (4.0-10.0)
[2018-05-22] MEDS: ADVAIR HFA 230/21MCG INHALER INH ×2 (08:29→20:18)
[2018-05-22] MEDS: METOPROLOL TART 25 MG TABLET PO ×2 (09:00→21:14)
[2018-05-22] MEDS: NICOTINE 14 MG/24 HR TRANSDERMAL TD (09:33)
[2018-05-22] MEDS: OLOPATADINE 0.1% OPHTH SOL 5ML(PATANOL) OU ×2 (09:33→17:30)
[2018-05-22] MEDS: MIRALAX *UNIT DOSE* 17GM PACKET PO (09:33)
[2018-05-22] MEDS: DICLOFENAC EPOLAMINE 1.3 % PATCH TOP ×2 (09:33→21:15)
[2018-05-22] MEDS: OMEPRAZOLE 20 MG CAP PO ×2 (09:33→21:13)
[2018-05-22] MEDS: DIGOXIN 0.125 MG TAB PO (09:39)
[2018-05-22] MEDS: LACTULOSE 20 GM/30 ML SYRUP UD PO ×3 (09:39→21:13)
[2018-05-22] MEDS: LORATADINE 10 MG TAB PO (09:39)
[2018-05-22] MEDS: MOM 30ML SUSPENSION UDC PO (09:39)
[2018-05-22] MEDS: GABAPENTIN 300 MG CAP PO ×2 (09:39→21:14)
[2018-05-22 15:37] LABS: DIGOXIN LEVEL 0.8 NG/ML (0.5-2.0)
[2018-05-22] MEDS: RIVAROXABAN 20 MG TAB (XARELTO) PO (17:31)
[2018-05-22] MEDS: ROSUVASTATIN 10 MG TAB (CRESTOR) PO (21:14)
[2018-05-23] MEDS: IPRATROPIUM 0.5MG/ALBUTEROL 2.5MG INH SOL UD 3ML (DUONEB)(J7620) NEB ×2 (02:00→07:30)
[2018-05-23] MEDS: PERCOCET 5MG/325MG TAB PO ×3 (03:18→13:02)
[2018-05-23] MEDS: ADVAIR HFA 230/21MCG INHALER INH (07:30)
[2018-05-23] MEDS: MOM 30ML SUSPENSION UDC PO (08:40)
[2018-05-23] MEDS: MIRALAX *UNIT DOSE* 17GM PACKET PO (08:40)
[2018-05-23] MEDS: LACTULOSE 20 GM/30 ML SYRUP UD PO (08:41)
[2018-05-23] MEDS: GABAPENTIN 300 MG CAP PO (08:42)
[2018-05-23] MEDS: OMEPRAZOLE 20 MG CAP PO (08:42)
[2018-05-23] MEDS: NICOTINE 14 MG/24 HR TRANSDERMAL TD (08:44)
[2018-05-23] MEDS: DIGOXIN 0.125 MG TAB PO (08:44)
[2018-05-23] MEDS: LORATADINE 10 MG TAB PO (08:44)
[2018-05-23] MEDS: OLOPATADINE 0.1% OPHTH SOL 5ML(PATANOL) OU (08:44)
[2018-05-23] MEDS: DICLOFENAC EPOLAMINE 1.3 % PATCH TOP (08:45)
[2018-05-23] MEDS: METOPROLOL TART 25 MG TABLET PO (08:47)
== END 2018-05-23 15:48 | disposition home health service (06) | DRG 470 ==
LOC: M OR 05:45 → M MS5PR 13:05
PROVIDERS: Orthopaedic Surgery
PROC: 0SR904A Replacement of Right Hip Joint with Ceramic on Polyethylene Synthetic Substitute, Uncemented, Open Approach (ICD-10-PCS; principal; 2018-05-19 07:30)
DX: M16.11 Unilateral primary osteoarthritis, right hip (principal); I50.32 Chronic diastolic (congestive) heart failure; G47.33 Obstructive sleep apnea (adult) (pediatric); J44.9 Chronic obstructive pulmonary disease, unspecified; E11.9 Type 2 diabetes mellitus without complications; J45.909 Unspecified asthma, uncomplicated; K21.9 Gastro-esophageal reflux disease without esophagitis; I11.0 Hypertensive heart disease with heart failure; E78.5 Hyperlipidemia, unspecified; E66.9 Obesity, unspecified; E55.9 Vitamin D deficiency, unspecified; I48.91 Unspecified atrial fibrillation; M17.0 Bilateral primary osteoarthritis of knee; M51.36 Other intervertebral disc degeneration, lumbar region; M50.30 Other cervical disc degeneration, unspecified cervical region; Z88.0 Allergy status to penicillin; Z79.51 Long term (current) use of inhaled steroids; Z79.899 Other long term (current) drug therapy; Z90.49 Acquired absence of other specified parts of digestive tract; Z72.0 Tobacco use

== ENCOUNTER 2018-05-31 11:27 | Emergency (ER) | payer MEDICARE, MEDICAID ==
[2018-05-31] MEDS: FAMOTIDINE INJ 20MG/2ML VIAL (S0028) IV (13:03)
[2018-05-31] MEDS: methylPREDNISolone INJ 125 MG/2 ML VIAL (J2930) IV (13:03)
[2018-05-31 13:26] LABS: BASO % 0.1 % (0.0-1.0); EOS % 0.4 % (0.0-3.0); HEMATOCRIT 36.9 % (36.0-47.0); IMMATURE GRANULOCYTE % 0.2 % (0-3.0); LYMPH # 1.3 10^3/uL (1.5-4.5); LYMPH % 16.6 % (24.0-44.0); MEAN CORPUSCULAR HEMOGLOBIN 29.3 pg (27.0-33.0); MEAN CORPUSCULAR HGB CONC 32.5 g/dl (32.0-36.5); MEAN CORPUSCULAR VOLUME 90.2 fl (80.0-96.0); MONO # 0.5 10^3/uL (0.0-0.8); MONO % 6.1 % (0.0-5.0); NEUTROPHILS # 6.2 10^3/uL (1.8-7.7); NEUTROPHILS % 76.6 % (36.0-66.0); PLATELET COUNT, AUTOMATED 427 10^3/uL (150-450); RED BLOOD COUNT 4.09 10^6/uL (4.00-5.40); RED CELL DISTRIBUTION WIDTH 14.2 % (11.5-14.5); WHITE BLOOD COUNT 8.1 10^3/uL (4.0-10.0)
[2018-05-31 13:41] LABS: ANION GAP 7 MEQ/L (8-16); BLOOD UREA NITROGEN 11 MG/DL (7-18); C REACTIVE PROTEIN QUANTITATIV 2.46 MG/DL (0.00-0.30); CALCIUM LEVEL 8.4 MG/DL (8.8-10.2); CARBON DIOXIDE LEVEL 27 MEQ/L (21-32); CHLORIDE LEVEL 107 MEQ/L (98-107); GLOMERULAR FILTRATION RATE > 60.0 (>39); GLUCOSE, FASTING 99 MG/DL (70-100); POTASSIUM SERUM 4.2 MEQ/L (3.5-5.1); SODIUM LEVEL 141 MEQ/L (136-145)
[2018-05-31 14:04] LABS: ERYTHROCYTE SEDIMENTATION RATE 34 mm/hr (0-30)
== END 2018-05-31 15:28 | disposition home or self-care (01) ==
LOC: M ED 11:27
DX: T78.40XA Allergy, unspecified, initial encounter (principal); Y92.9 Unspecified place or not applicable; Y93.9 Activity, unspecified; J44.9 Chronic obstructive pulmonary disease, unspecified; G47.30 Sleep apnea, unspecified; M19.90 Unspecified osteoarthritis, unspecified site; K21.9 Gastro-esophageal reflux disease without esophagitis; I10 Essential (primary) hypertension; I48.91 Unspecified atrial fibrillation; Z87.440 Personal history of urinary (tract) infections; Z72.0 Tobacco use; Z79.899 Other long term (current) drug therapy; Z88.0 Allergy status to penicillin; Z91.040 Latex allergy status
CPT/HCPCS: J2930

== ENCOUNTER 2018-08-09 13:00 | Emergency (ER) | payer MEDICARE, MEDICAID ==
[2018-08-09 14:10] LABS: BASO % 0.4 % (0.0-1.0); EOS # 0.1 10^3/uL (0.0-0.50); EOS % 0.9 % (0.0-3.0); HEMATOCRIT 46.1 % (36.0-47.0); HEMOGLOBIN 15.1 g/dl (12.0-15.5); IMMATURE GRANULOCYTE % 0.2 % (0-3.0); LYMPH # 1.3 10^3/uL (1.5-4.5); MEAN CORPUSCULAR HEMOGLOBIN 28.7 pg (27.0-33.0); MEAN CORPUSCULAR HGB CONC 32.8 g/dl (32.0-36.5); MEAN CORPUSCULAR VOLUME 87.6 fl (80.0-96.0); MONO # 0.7 10^3/uL (0.0-0.8); MONO % 6.7 % (0.0-5.0); NEUTROPHILS # 7.9 10^3/uL (1.8-7.7); NEUTROPHILS % 78.8 % (36.0-66.0); PLATELET COUNT, AUTOMATED 285 10^3/uL (150-450); RED BLOOD COUNT 5.26 10^6/uL (4.00-5.40); RED CELL DISTRIBUTION WIDTH 14.2 % (11.5-14.5)
[2018-08-09 14:23] LABS: INR 1.17; PROTHROMBIN TIME 15.1 SECONDS (12.1-14.4)
[2018-08-09 14:24] LABS: PARTIAL THROMBOPLASTIN TIME 28.7 SECONDS (25.4-37.6)
[2018-08-09 14:41] LABS: ALBUMIN 3.6 GM/DL (3.2-5.2); ALKALINE PHOSPHATASE 107 U/L (45-117); ALT/SGPT 14 U/L (12-78); ANION GAP 5 MEQ/L (8-16); AST/SGOT 12 U/L (7-37); BILIRUBIN,DIRECT 0.1 MG/DL (0.0-0.2); BILIRUBIN,TOTAL 0.4 MG/DL (0.2-1.0); BLOOD UREA NITROGEN 8 MG/DL (7-18); CALCIUM LEVEL 9.9 MG/DL (8.8-10.2); CARBON DIOXIDE LEVEL 32 MEQ/L (21-32); CHLORIDE LEVEL 104 MEQ/L (98-107); CREATININE FOR GFR 0.57 MG/DL (0.55-1.30); GLOMERULAR FILTRATION RATE > 60.0 (>39); GLUCOSE, FASTING 98 MG/DL (70-100); LIPASE 46 U/L (73-393); POTASSIUM SERUM 3.7 MEQ/L (3.5-5.1); SODIUM LEVEL 141 MEQ/L (136-145); TOTAL PROTEIN 7.6 GM/DL (6.4-8.2)
[2018-08-09 15:08] LABS: KETONE, URINE AUTO RFX NEGATIVE (NEGATIVE); LEUKOCYTE ESTERASE UR AUTO RFX TRACE (NEGATIVE); MUCUS, URINE RFX LARGE (NEGATIVE); NITRITE, URINE AUTO RFX NEGATIVE (NEGATIVE); RBC, URINE AUTO RFX 5 /HPF (0-3); SPECIFIC GRAVITY UR AUTO RFX 1.028 (1.002-1.035); SQUAM EPITHELIAL CELL UR AURFX 4 /HPF (0-6); WBC, URINE AUTO RFX 8 /HPF (0-3)
== END 2018-08-09 15:20 | disposition home or self-care (01) ==
LOC: M ED 13:00
DX: M54.9 Dorsalgia, unspecified (principal)
CPT/HCPCS: 72110

== ENCOUNTER → 2018-09-13 | Outpatient (CLI) | payer MEDICARE, MEDICAID ==
[~2018-09-13] MED LIST changes: +ADV500INH INH; +ALBU83IN INH; +ASPI81CH PO; +BENA25CA4 PO; +CALCTAB74 PO; +CELE1CAP4 PO; -CONRAY-43 43% 50ML VIAL (Q9960) As Ordered; +CRES40TA PO; +DIGO0.12 PO; +DRIS50003 PO; +FISH1000 PO; +FLON0.054; +GABA-843 PO; +I-VITAB PO; +LACT10SO29 PO; +LANO250T15 PO; +LIDO5DIS41 TD; -LIDOCAINE 1% MDV 20ML VIAL As Ordered; +LOPR1TAB6 PO; +LORA-243 PO; +MELA10TA4 PO; +MELA5TAB17 PO; +METROCREAM TOP; +MOM30SS PO; +MONT10TA2 PO; +MUCI600T37 PO; +NICO7DIS4 TD; +NORT25CA2 PO; +OMEP40CA2 PO; +PAXI20TA29 PO; +PEPC1TAB5 PO; +PERC10TA26 PO; +PERC5TAB12 PO; +PROAAER10 INH; +PROVENTIL; +QNAS80AE; +RAMI1CAP24 PO; +SANT250O8 TOP; +SING10TA32 PO; +SPIR1CAP INH; -TRIAMCINOLONE ACETONIDE SUSP 40 MG/ML VIAL (J3301) As Ordered; +TYLE325T5 PO; +VOLT1GEL15 TD; +XANA0.25 PO; +XARE20TA PO; +astelin
--- NOTE | 2018-09-14 02:26 | REP ---
Clinical: Trauma/injury with left-sided rib pain. Technique: Frontal view of the chest with multiple views of the left hemithorax. Findings: No acute consolidation, effusion or pneumothorax appreciated. Skeletal structures demonstrate age-related osteopenia and degenerative changes along with old healed left rib fractures. No obvious acute fracture identified. Impression: Old healed left rib fractures. Electronically Signed by Raciel Cardenas MD 09/14/2018 02:18 A
== END ==
LOC: M SMT 11:46
PROVIDERS: ATTEND Physician Assistant Medical
DX: S29.019D Strain of muscle and tendon of unspecified wall of thorax, subsequent encounter (principal)

== ENCOUNTER → 2019-06-08 | Outpatient (REF) | payer MEDICARE, MEDICAID ==
[~2019-06-08] MED LIST changes: -ASPI81CH PO; +ASPI81CH49 PO; -MELA5TAB17 PO; +MELA5TAB31 PO
[2019-06-08 18:10] LABS: BASO % 0.6 % (0.0-1.0); EOS # 0.1 10^3/uL (0.0-0.5); EOS % 1.5 % (0.0-3.0); HEMOGLOBIN 14.4 g/dl (12.0-15.5); LYMPH # 1.5 10^3/uL (1.5-5.0); LYMPH % 23.3 % (24.0-44.0); MEAN CORPUSCULAR HEMOGLOBIN 29.8 pg (27.0-33.0); MONO # 0.7 10^3/uL (0.0-0.8); MONO % 10.7 % (0.0-5.0); NEUTROPHILS # 4.2 10^3/uL (1.5-8.5); NEUTROPHILS % 63.4 % (36.0-66.0); PLATELET COUNT, AUTOMATED 271 10^3/uL (150-450); RED BLOOD COUNT 4.84 10^6/uL (4.00-5.40); WHITE BLOOD COUNT 6.6 10^3/uL (4.0-10.0)
[2019-06-08 18:19] LABS: ALBUMIN 3.7 GM/DL (3.2-5.2); ALT/SGPT 16 U/L (12-78); BILIRUBIN,TOTAL 0.4 MG/DL (0.2-1.0); BLOOD UREA NITROGEN 6 MG/DL (7-18); CALCIUM LEVEL 9.8 MG/DL (8.8-10.2); CARBON DIOXIDE LEVEL 30 MEQ/L (21-32); CHLORIDE LEVEL 106 MEQ/L (98-107); CHOLESTEROL LEVEL 167 MG/DL (<200); CHOLESTEROL RISK RATIO 2.385 (<5); CREATININE FOR GFR 0.81 MG/DL (0.55-1.30); FREE T4 0.88 NG/DL (0.76-1.46); GLOMERULAR FILTRATION RATE > 60.0 (>39); GLUCOSE, FASTING 148 MG/DL (70-100); HDL CHOLESTEROL 70 MG/DL (>40); LDL CHOLESTEROL 75 MG/DL (<100); NON-HDL-C 97 MG/DL; POTASSIUM SERUM 4.3 MEQ/L (3.5-5.1); SODIUM LEVEL 142 MEQ/L (136-145); TOTAL PROTEIN 7.2 GM/DL (6.4-8.2); TRIGLYCERIDES LEVEL 112 MG/DL (<150)
[2019-06-08 18:21] LABS: PTH INTACT 41.8 PG/ML (18.5-88.0); TOTAL 25(OH) VITAMIN D 38.9 NG/ML (30.0-100.0); VITAMIN B12 LEVEL 428 PG/ML (247-911)
[2019-06-08 18:57] LABS: HEMOGLOBIN A1c 6.7 %
== END ==
LOC: M LABDRAW1 17:19
PROVIDERS: ATTEND Family Medicine
DX: E78.5 Hyperlipidemia, unspecified (principal); I48.91 Unspecified atrial fibrillation; E55.9 Vitamin D deficiency, unspecified; Z79.899 Other long term (current) drug therapy

== ENCOUNTER → 2019-08-16 | Outpatient (REF) | payer MEDICARE, MEDICAID ==
[~2019-08-16] MED LIST changes: -DIGO0.12 PO; +DIGO0.123 PO; -OMEP40CA2 PO; +OMEP40CA97 PO
== END ==
LOC: M LAB REF 17:11
PROVIDERS: ATTEND Internal Medicine Pulmonary Disease
DX: J44.9 Chronic obstructive pulmonary disease, unspecified (principal)

== ENCOUNTER → 2019-09-14 | Outpatient (CLI) | payer MEDICARE, MEDICAID ==
--- NOTE | 2019-09-14 16:51 | REPMRS ---
Patient History The patient states she has not had a clinical breast exam in over a year. Patient is postmenopausal. Family history of colorectal cancer at age 50 or over in mother, colorectal cancer at age 80 in sister. No Hormone Replacement Therapy Digital Woman Screen Mammo: September 14, 2019 - Exam #: [id number] Bilateral CC and MLO view(s) were taken. Technologist: Maryann Gooden, Technologist No prior studies available for comparison. FINDINGS: There are scattered fibroglandular densities. There is no evidence of dominant mass, architectural distortion, or grouped microcalcification typical of malignancy. 3-D tomosynthesis shows no additional findings. Assessment: BI-RADS/ACR category 1 mammogram. Negative Mammogram. Recommendation Routine screening mammogram of both breasts in 1 year (for women over age 40). This patient's Lifetime Breast Cancer RIsk is estimated at 3.0 %. This mammogram was interpreted with the aid of an FDA-approved computer-aided dectection system. Electronically Signed By: Star Adams MD 09/14/19 [id number]
== END ==
LOC: M WHC 15:21
PROVIDERS: ATTEND Physician Assistant Medical
DX: Z12.31 Encounter for screening mammogram for malignant neoplasm of breast (principal); Z78.0 Asymptomatic menopausal state; Z80.0 Family history of malignant neoplasm of digestive organs

== ENCOUNTER → 2019-10-03 | Outpatient (REF) | payer MEDICARE, MEDICAID | LOC: M LAB REF 16:57 | PROVIDERS: ATTEND Internal Medicine Pulmonary Disease | DX: J44.9 Chronic obstructive pulmonary disease, unspecified (principal) ==

== ENCOUNTER → 2019-10-25 | Outpatient (REF) | payer MEDICARE, MEDICAID ==
[~2019-10-25] MED LIST changes: -MONT10TA2 PO; +MONT10TA4 PO
[2019-10-25 18:49] LABS: BASO % 0.4 % (0.0-1.0); EOS # 0.1 10^3/uL (0.0-0.5); EOS % 0.7 % (0.0-3.0); HEMATOCRIT 44.6 % (36.0-47.0); HEMOGLOBIN 14.3 g/dl (12.0-15.5); LYMPH % 9.3 % (24.0-44.0); MEAN CORPUSCULAR HEMOGLOBIN 29.7 pg (27.0-33.0); MEAN CORPUSCULAR HGB CONC 32.1 g/dl (32.0-36.5); MEAN CORPUSCULAR VOLUME 92.5 fl (80.0-96.0); MONO # 0.4 10^3/uL (0.0-0.8); MONO % 3.7 % (0.0-5.0); NEUTROPHILS # 8.9 10^3/uL (1.5-8.5); NEUTROPHILS % 85.6 % (36.0-66.0); PLATELET COUNT, AUTOMATED 280 10^3/uL (150-450); RED BLOOD COUNT 4.82 10^6/uL (4.00-5.40); WHITE BLOOD COUNT 10.4 10^3/uL (4.0-10.0)
[2019-10-25 19:07] LABS: ALBUMIN 3.8 GM/DL (3.2-5.2); ALT/SGPT 23 U/L (12-78); BILIRUBIN,TOTAL 0.4 MG/DL (0.2-1.0); BLOOD UREA NITROGEN 14 MG/DL (7-18); CALCIUM LEVEL 9.1 MG/DL (8.8-10.2); CARBON DIOXIDE LEVEL 29 MEQ/L (21-32); CHLORIDE LEVEL 104 MEQ/L (98-107); CHOLESTEROL LEVEL 180 MG/DL (<200); CHOLESTEROL RISK RATIO 1.978 (<5); CREATININE FOR GFR 0.67 MG/DL (0.55-1.30); DIGOXIN LEVEL 0.8 NG/ML (0.5-2.0); GLOMERULAR FILTRATION RATE > 60.0 (>39); GLUCOSE, FASTING 119 MG/DL (70-100); HDL CHOLESTEROL 91 MG/DL (>40); LDL CHOLESTEROL 76 MG/DL (<100); NON-HDL-C 89 MG/DL; POTASSIUM SERUM 4.1 MEQ/L (3.5-5.1); PTH INTACT 75.8 PG/ML (18.5-88.0); SODIUM LEVEL 139 MEQ/L (136-145); TOTAL 25(OH) VITAMIN D 43.9 NG/ML (30.0-100.0); TOTAL PROTEIN 6.8 GM/DL (6.4-8.2); TRIGLYCERIDES LEVEL 63 MG/DL (<150)
[2019-10-25 19:25] LABS: HEMOGLOBIN A1c 6.8 %
== END ==
LOC: M LABDRAW1 14:53
PROVIDERS: ATTEND Nurse Practitioner Family
DX: E11.9 Type 2 diabetes mellitus without complications (principal); I48.91 Unspecified atrial fibrillation; E55.9 Vitamin D deficiency, unspecified; E78.5 Hyperlipidemia, unspecified

== ENCOUNTER → 2019-10-29 | Outpatient (REF) | payer MEDICARE, MEDICAID ==
[2019-10-29 16:26] LABS: MALB URINE SIEMENS 33.5 MG/L; MAU/CREAT RATIO 26.5 MCG/MG (0.0-30.0)
== END ==
LOC: M LAB REF 11:04
PROVIDERS: ATTEND Nurse Practitioner Family
DX: E11.9 Type 2 diabetes mellitus without complications (principal)

== ENCOUNTER → 2020-10-24 | Outpatient (REF) | payer MEDICARE, MEDICAID ==
[~2020-10-24] MED LIST changes: +GABA-282 PO; -GABA-843 PO; -LACT10SO29 PO; +LACT20EL PO; -MELA5TAB31 PO; +MELA5TAB36 PO; +MONT10TA10 PO; -MONT10TA4 PO
[2020-10-24 18:29] LABS: BASO # 0.1 10^3/uL (0.0-0.2); BASO % 0.5 % (0.0-1.0); EOS # 0.1 10^3/uL (0.0-0.5); EOS % 0.7 % (0.0-3.0); HEMATOCRIT 45.5 % (36.0-47.0); HEMOGLOBIN 14.6 g/dl (12.0-15.5); LYMPH # 0.9 10^3/uL (1.5-5.0); LYMPH % 9.4 % (24.0-44.0); MEAN CORPUSCULAR HGB CONC 32.1 g/dl (32.0-36.5); MEAN CORPUSCULAR VOLUME 93.6 fl (80.0-96.0); MONO # 0.5 10^3/uL (0.0-0.8); MONO % 5.2 % (2.0-8.0); NEUTROPHILS # 7.8 10^3/uL (1.5-8.5); NEUTROPHILS % 83.7 % (36.0-66.0); PLATELET COUNT, AUTOMATED 321 10^3/uL (150-450); RED BLOOD COUNT 4.86 10^6/uL (4.00-5.40); WHITE BLOOD COUNT 9.4 10^3/uL (4.0-10.0)
[2020-10-24 18:49] LABS: ALBUMIN 3.4 GM/DL (3.2-5.2); ALT/SGPT 18 U/L (12-78); BILIRUBIN,TOTAL 0.2 MG/DL (0.2-1.0); BLOOD UREA NITROGEN 9 MG/DL (7-18); CALCIUM LEVEL 9.5 MG/DL (8.8-10.2); CARBON DIOXIDE LEVEL 27 MEQ/L (21-32); CHLORIDE LEVEL 105 MEQ/L (98-107); CREATININE FOR GFR 0.83 MG/DL (0.55-1.30); FREE T4 0.98 NG/DL (0.76-1.46); GLOMERULAR FILTRATION RATE > 60.0 (>39); GLUCOSE, FASTING 141 MG/DL (70-100); POTASSIUM SERUM 4.4 MEQ/L (3.5-5.1); SODIUM LEVEL 140 MEQ/L (136-145); TOTAL PROTEIN 6.7 GM/DL (6.4-8.2)
[2020-10-24 18:51] LABS: VITAMIN B12 LEVEL 457 PG/ML (247-911)
[2020-10-24 21:00] LABS: ERYTHROCYTE SEDIMENTATION RATE 33 mm/hr (0-30)
== END ==
LOC: M SFHCPLAZ 14:28
PROVIDERS: ATTEND Family Medicine
DX: Z12.31 Encounter for screening mammogram for malignant neoplasm of breast (principal); Z80.0 Family history of malignant neoplasm of digestive organs; I48.91 Unspecified atrial fibrillation; E11.9 Type 2 diabetes mellitus without complications; E78.5 Hyperlipidemia, unspecified; M17.0 Bilateral primary osteoarthritis of knee

== ENCOUNTER → 2020-10-24 | Outpatient (CLI) | payer MEDICARE, MEDICAID ==
--- NOTE | 2020-10-24 15:52 | REPMRS ---
Patient History The patient states she had a clinical breast exam in 2020. Family history of colorectal cancer at age 50 or over in mother, colorectal cancer at age 80 in sister. No Hormone Replacement Therapy Digital Woman Screen Mammo: October 24, 2020 - Exam #: [id number] Bilateral CC and MLO view(s) were taken. Technologist: Rosaline Dunn, Technologist Prior study comparison: September 14, 2019, bilateral digital woman screen mammo performed at [facility]. FINDINGS: There are scattered fibroglandular densities. The Volpara volumetric breast density category is:B. There has been no change in the appearance of the mammogram from the prior studies. There is a mild amount of scattered fibroglandular density which is fairly symmetric. There is no interval development of dominant mass, architectural distortion, or grouped microcalcification suggestive of malignancy. Assessment: BI-RADS/ACR category 1 mammogram. Negative Mammogram. Recommendation Routine screening mammogram of both breasts in 1 year (for women over age 40). This patient's [facility] Lifetime Breast Cancer Risk is estimated at 2.5 %. This mammogram was interpreted with the aid of an FDA-approved computer-aided dectection system. Electronically Signed By: Star Adams MD 10/24/20 [id number]
== END ==
LOC: M WHC 13:50
PROVIDERS: ATTEND Family Medicine
DX: Z12.31 Encounter for screening mammogram for malignant neoplasm of breast (principal); Z80.0 Family history of malignant neoplasm of digestive organs

== ENCOUNTER 2020-12-29 16:17 | Inpatient (IN) | payer MEDICARE, MEDICAID ==
[~2020-12-29] VITALS: Ht 172.7 cm; Wt 78.0 kg
--- NOTE | 2020-12-29 17:03 | REP ---
INDICATION: Altered Mental Status COMPARISON: None. TECHNIQUE: Axial noncontrast images from the skull base to the thoracic inlet with coronal reformations. This CT examination was performed using the following dose reduction techniques: Automated exposure control, adjustment of mA and/or kv according to the patient's size, and use of iterative reconstruction technique. FINDINGS: Age-related atrophy with periventricular leukomalacia and microvascular ischemic changes are appreciated. The ventricles and sulci are symmetric. Robledo-white differentiation is maintained. There is no evidence for acute intracranial hemorrhage, mass/mass effect, pathology or infarction. No extra-axial fluid collection. Calvarium is intact. Paranasal sinuses and mastoid air cells are clear. IMPRESSION: Age related atrophy and microvascular ischemic changes. No acute intracranial hemorrhage, infarction, or mass/mass effect. <Electronically signed by Raciel Cardenas > 12/29/20 [id number]
[2020-12-29 17:04] LABS: BASO % 0.5 % (0.0-1.0); EOS # 0.1 10^3/uL (0.0-0.5); EOS % 1.4 % (0.0-3.0); HEMATOCRIT 48.5 % (36.0-47.0); HEMOGLOBIN 15.5 g/dl (12.0-15.5); LYMPH # 1.3 10^3/uL (1.5-5.0); LYMPH % 14.8 % (24.0-44.0); MEAN CORPUSCULAR HEMOGLOBIN 28.7 pg (27.0-33.0); MEAN CORPUSCULAR VOLUME 89.6 fl (80.0-96.0); MONO # 0.7 10^3/uL (0.0-0.8); MONO % 7.9 % (2.0-8.0); NEUTROPHILS # 6.4 10^3/uL (1.5-8.5); NEUTROPHILS % 74.9 % (36.0-66.0); PLATELET COUNT, AUTOMATED 276 10^3/uL (150-450); RED BLOOD COUNT 5.41 10^6/uL (4.00-5.40); WHITE BLOOD COUNT 8.5 10^3/uL (4.0-10.0)
--- NOTE | 2020-12-29 17:36 | REP ---
INDICATION: Altered Mental Status COMPARISON: Eighteen 20 TECHNIQUE: Portable AP view of the chest FINDINGS: The mediastinum and cardiac silhouette are stable and cardiomegaly is again suggested. The lung mclean demonstrate diffuse chronic interstitial changes along with scattered calcified granulomata. No focal consolidation, effusion, or pneumothorax identified. Skeletal structures demonstrate age-related osteopenia, degenerative changes, and old healed left rib fractures. IMPRESSION: Cardiomegaly and chronic appearing changes. <Electronically signed by Raciel Cardenas > 12/29/20 [id number]
[2020-12-29 17:46] LABS: ACETAMINOPHEN LEVEL < 2.0 UG/ML (10.0-30.0); ALBUMIN 3.5 GM/DL (3.2-5.2); ALT/SGPT 12 U/L (12-78); BILIRUBIN,DIRECT 0.2 MG/DL (0.0-0.2); BILIRUBIN,TOTAL 0.5 MG/DL (0.2-1.0); BLOOD UREA NITROGEN 12 MG/DL (7-18); CALCIUM LEVEL 9.7 MG/DL (8.8-10.2); CARBON DIOXIDE LEVEL 31 MEQ/L (21-32); CHLORIDE LEVEL 106 MEQ/L (98-107); CK-MB VALUE MASS < 1.0 NG/ML (<3.6); CPK CREATINE PHOSPHOKINASE 59 U/L (26-192); CREATININE FOR GFR 0.51 MG/DL (0.55-1.30); ETHYL ALCOHOL (ETHANOL) < 0.003 % (0.000-0.010); GLOMERULAR FILTRATION RATE > 60.0 (>39); GLUCOSE, FASTING 89 MG/DL (70-100); MB/CK RELATIVE INDEX 1.69 (< OR =4); POTASSIUM SERUM 4.2 MEQ/L (3.5-5.1); SALICYLATE LEVEL 2.5 MG/DL (5.0-30.0); SODIUM LEVEL 142 MEQ/L (136-145); TOTAL PROTEIN 7.2 GM/DL (6.4-8.2); TROPONIN I < 0.02 NG/ML (< 0.10)
[2020-12-29] MEDS ORDERED: NORT25CA2 PO (18:03)
[2020-12-29] MEDS ORDERED: METO25TA4 PO (18:03)
[2020-12-29] MEDS ORDERED: XARE20TA PO (18:03)
[2020-12-29] MEDS ORDERED: ROSU40TA4 PO (18:03)
[2020-12-29] MEDS ORDERED: FLUT1BLS3 INH (18:03)
[2020-12-29] MEDS ORDERED: MONT10TA10 PO (18:03)
[2020-12-29] MEDS ORDERED: LEXA1TAB PO (18:03)
[2020-12-29] MEDS ORDERED: SPIR1CAP INH (18:03)
[2020-12-29] MEDS ORDERED: ALBU83IN INH (18:03)
[2020-12-29] MEDS ORDERED: DIGO0.123 PO (18:03)
[2020-12-29] MEDS ORDERED: DICL1GEL3 TOP (18:03)
[2020-12-29] MEDS ORDERED: FLON1SPR NARES (18:03)
[2020-12-29] MEDS ORDERED: GABA-282 PO (18:03)
[2020-12-29] MEDS ORDERED: TRAZ1TAB10 PO (18:03)
[2020-12-29] MEDS ORDERED: NALO25TA PO (18:03)
[2020-12-29] MEDS ORDERED: DRIS50003 PO (18:03)
[2020-12-29] MEDS ORDERED: PERC5TAB12 PO (18:03)
[2020-12-29] MEDS ORDERED: VENTAER INH (18:03)
[2020-12-29] MEDS ORDERED: LORA-674 PO (18:03)
[2020-12-29] MEDS ORDERED: OMEP-221 PO (18:03)
[2020-12-29] MEDS ORDERED: ISOVUE-370 76% 100ML VIAL As Ordered ONE (18:28)
[2020-12-29] MEDS: COMBIVENT RESPIMAT 100-20MCG INHALER 4GM INH SCH ×2 (18:44→19:13)
[2020-12-29 18:51] LABS: AMPHETAMINES LEVEL URINE NEGATIVE (NEGATIVE); BARBITURATES URINE NEGATIVE (NEGATIVE); BENZODIAZEPINES URINE NEGATIVE (NEGATIVE); CANNABINOIDS URINE NEGATIVE (NEGATIVE); COCAINE METABOLITE URINE NEGATIVE (NEGATIVE); METHADONE URINE NEGATIVE (NEGATIVE); OPIATES URINE NEGATIVE (NEGATIVE); PHENCYCLIDINE URINE NEGATIVE (NEGATIVE)
[2020-12-29 18:57] LABS: NT-PRO BNP 887 PG/ML (<450)
--- NOTE | 2020-12-29 19:24 | REPVR ---
PROCEDURE INFORMATION: Exam: CTA Chest With Contrast Exam date and time: 12/29/2020 6:52 PM Age: 75 years old Clinical indication: Shortness of breath; Additional info: SOB TECHNIQUE: Imaging protocol: Computed tomographic angiography of the chest with contrast. 3D rendering (Not supervised by radiologist): MIP and/or 3D reconstructed images were created by the technologist. Radiation optimization: All CT scans at this facility use at least one of these dose optimization techniques: automated exposure control; mA and/or kV adjustment per patient size (includes targeted exams where dose is matched to clinical indication); or iterative reconstruction. Contrast material: ISOVUE 370; Contrast volume: 75 ml; Contrast route: INTRAVENOUS (IV); COMPARISON: CT Chest with contrast 09/14/2014 1:45 PM FINDINGS: Pulmonary arteries: There are no pulmonary emboli. Aorta: There is moderate atherosclerosis in the thoracic aorta. There is no aortic dissection or aneurysm. Lungs: Spiculated nodule in the left upper lobe measures 7.8 mm. Pleural spaces: 1.2 cm calcified granuloma right middle lobe associated with pleural retraction. Heart: There is moderate atherosclerotic calcification of the coronary arteries. Lymph nodes: Calcified right hilar and mediastinal lymph nodes. Bones/joints: Osteoporosis. The spine demonstrates moderate degenerative changes. Soft tissues: Unremarkable. IMPRESSION: 1. Spiculated nodule in the left upper lobe measures 7.8 mm. For patients at low risk (minimal or absent history of smoking and of other known risk factors), recommend CT Chest at 6-12 months, then consider CT Chest at 18-24 months. For patients at high risk (history of smoking or of other known risk factors), recommend CT Chest at 6-12 months, then CT Chest at 18-24 months. (Reference: Ceci). Based on appearance one might consider PET imaging as well. References: Ceci H, et al. Guidelines for Management of Incidental Pulmonary Nodules Detected on CT Images: From the Fleischner Society 2017. Radiology. 2017;284(1):228-243. 2. There is no aortic dissection or aneurysm. 3. There are no pulmonary emboli. Findings consistent with remote intrathoracic granulomatous infection. Electronically signed by: Ed Donnelly On 12/29/2020 19:23:49 PM
--- NOTE | 2020-12-29 19:24 | ECGEPIP ---
[facility] - ED Test Date: 2020-12-29 Pat Name: MARGARITA SCOTT Department: Room: - Gender: Female Helpdesk Administrator: SHIRA : 1945 Requested By: Martha Kaur Order Number: [id number] Reading MD: Martha Kaur Measurements Intervals [place] Rate: 111 P: MN: QRS: 14 QRSD: 80 T: 243 QT: 322 QTc: 437 Interpretive Statements Atrial fibrillation with rapid ventricular response ST & T wave abnormality, consider anterior ischemia cw 04/28/18 rate increased more pronounced STT wave changes anterior leads - r/o ischemia Electronically Signed on 12-29-2020 19:24:24 EDT by Martha Kaur
[2020-12-29] MEDS ORDERED: PERCOCET 5MG/325MG TAB PO PRN (19:35)
[2020-12-29] MEDS ORDERED: MAALOX 30 ML SUSP *UDC PO PRN (19:35)
[2020-12-29] MEDS ORDERED: DICLOFENAC EPOLAMINE 1.3 % PATCH TOP PRN (19:35)
[2020-12-29] MEDS ORDERED: ACETAMINOPHEN TAB 650MG DOSE (2X325MG) PO PRN (19:35)
[2020-12-29] MEDS ORDERED: FLUTICASONE PROP 0.05% NASAL SPRAY 16 GM (FLONASE) NARES PRN (19:35)
[2020-12-29] MEDS: METOPROLOL 5 MG/5 ML VIAL IV SCH ×3 (20:07→20:17)
[2020-12-29] MEDS ORDERED: NORTRIPTYLINE 25 MG CAP PO SCH (21:00)
[2020-12-29] MEDS ORDERED: traZODone 50 MG TAB PO SCH (21:00)
[2020-12-29] MEDS: ADVAIR HFA 115/21MCG INHALER INH SCH (21:25)
[2020-12-29 21:29] LABS: CPK CREATINE PHOSPHOKINASE 53 U/L (26-192); DIGOXIN LEVEL 0.7 NG/ML (0.5-2.0); MB/CK RELATIVE INDEX 1.89 (< OR =4); TROPONIN I < 0.02 NG/ML (< 0.10)
--- NOTE | 2020-12-29 21:30 | HPEPDOC ---
[facility] Medical History & Physical Date of Admission December 29, 2020 Date of Service: December 29, 2020 Attending Physician: ANTONIA MONTALVO MD History and Physical CHIEF COMPLAINT: [75 y/o female presents to ED after being found of the ground by daughter] HISTORY OF PRESENT ILLNESS: [This is a 75 y/o female with a pmh of htn, hld, gerd, asthma, copd, pulmonary htn, diastolic chf, a-fib on xarelto, diet controlled dm2 and dementia who presents to the ED after being found on the floor by her daughter. Patient lives at home by herself. Daughter states that she visits her mother daily so she must have fallen only today. Daughter states that she feels as though her mother is increasingly confused and has noted that she has been having visual and auditory hallucinations. Patient herself tells me that she feels mostly fine. Patient states that she is a little short of breath but thinks that this is normal and due to her asthma and her smoking. Patient states that she is also having back and right hip pain which she blames on her fall. Patient tells me that she does not believe that she hit her head. Patient states that she is also having some mild abdominal pain which she blames on constipation. Patient denies chest pains, productive cough, fevers, chills, diarrhea, vomiting, syncope. Patient found to be in a-fib with rvr in the ED.] PAST MEDICAL HISTORY: 1. [See HPI PAST SURGICAL HISTORY: 1. [Right hip arthroplasty]. 2. [Appendectomy]. 3. [Cholecystectomy 4. Unspecified hernia repair]. SOCIAL HISTORY: Resides in: [Home, alone] Tobacco use:[Current smoker, approx 62 pack years] ETOH: [Denies] Illicit drug use: [Denies] FAMILY HISTORY: CHF, DM, HTN ALLERGIES: Please see below. REVIEW OF SYSTEMS: CONSTITUTIONAL: [See HPI]. HEENT: [Denies URI sx]. CARDIOVASCULAR: [See HPI]. RESPIRATORY: [See HPI]. GASTROINTESTINAL: [See HPI]. GENITOURINARY: [Denies dysuria]. SKIN: [Denies rash]. MUSCULOSKELETAL: [Admits to back, hip, arm pain]. NEUROLOGICAL: [Denies paresthesias]. ENDOCRINE: [Hx of DM]. HEMATOLOGIC/LYMPHATIC: [Admits to easy bruising]. HOME MEDICATIONS: Please see below. PHYSICAL EXAMINATION: VITAL SIGNS: Please see below GENERAL APPEARANCE: [This is a pleasantly confused 75 year old female. She is resting in bed and appears to have mildly increased work of breathing]. HEENT: [No mass or lesion. Left cheek appears to have a small abrasion. EOMI. No scleral icterus or conjunctival erythema. Oral mucosa moist without erythema. ]. CARDIOVASCULAR: [Tachy rate, irregularly irregular rhythm. No murmurs, rubs, gallops]. LUNGS: [Decreased breath sounds. Diffuse wheezing]. ABDOMEN: [Soft, non-tender]. MUSCULOSKELETAL: [No joint deformity noted]. EXTREMITIES: [No peripheral edema. No overlying skin changes. Pulses intact.]. NEUROLOGICAL: [Sensation intact. Strength rated at 5/5 in all extremities. Speech clear. Patient is A+Ox3 but very confused at times during exam. CN 3-12 grossly intact. No focal deficits.]. PSYCHIATRIC: [Mood and affect appears appropriate.]. LABORATORY DATA: See below. IMAGING: [Chest x-ray: FINDINGS: The mediastinum and cardiac silhouette are stable and cardiomegaly is again suggested. The lung mclean demonstrate diffuse chronic interstitial changes along with scattered calcified granulomata. No focal consolidation, effusion, or pneumothorax identified. Skeletal structures demonstrate age-related osteopenia, degenerative changes, and old healed left rib fractures. IMPRESSION: Cardiomegaly and chronic appearing changes. Head CT: FINDINGS: Age-related atrophy with periventricular leukomalacia and microvascular ischemic changes are appreciated. The ventricles and sulci are symmetric. Robledo-white differentiation is maintained. There is no evidence for acute intracranial hemorrhage, mass/mass effect, pathology or infarction. No extra-axial fluid collection. Calvarium is intact. Paranasal sinuses and mastoid air cells are clear. IMPRESSION: Age related atrophy and microvascular ischemic changes. No acute intracranial hemorrhage, infarction, or mass/mass effect. CTA Chest: FINDINGS: Pulmonary arteries: There are no pulmonary emboli. Aorta: There is moderate atherosclerosis in the thoracic aorta. There is no aortic dissection or aneurysm. Lungs: Spiculated nodule in the left upper lobe measures 7.8 mm. Pleural spaces: 1.2 cm calcified granuloma right middle lobe associated with pleural retraction. Heart: There is moderate atherosclerotic calcification of the coronary arteries. Lymph nodes: Calcified right hilar and mediastinal lymph nodes. Bones/joints: Osteoporosis. The spine demonstrates moderate degenerative changes. Soft tissues: Unremarkable. IMPRESSION: 1. Spiculated nodule in the left upper lobe measures 7.8 mm. For patients at low risk (minimal or absent history of smoking and of other known risk factors), recommend CT Chest at 6-12 months, then consider CT Chest at 18-24 months. For patients at high risk (history of smoking or of other known risk factors), recommend CT Chest at 6-12 months, then CT Chest at 18-24 months. (Reference: Ceci). Based on appearance one might consider PET imaging as well. References: Ceci Morataya, et al. Guidelines for Management of Incidental Pulmonary Nodules Detected on CT Images: From the Fleischner Society 2017. Radiology. 2017;284(1):228-243. 2. There is no aortic dissection or aneurysm. 3. There are no pulmonary emboli. Findings consistent with remote intrathoracic granulomatous infection. ] MICROBIOLOGY: Please see below. ASSESSMENT: [This is a 75 y/o female with a pmh of htn, hld, gerd, asthma, copd, pulmonary htn, diastolic chf, a-fib on xarelto, diet controlled dm2 who presents to the ed with sob and ams after a fall. On evaluation, patient is pleasantly confused, found to be in a-fib with rvr and have a pulmonary nodule.]. . PLAN: 1. [Delirium/Weakness - Infectious workup in the ED is nonrevealing. Potentially progression of dem entia. Patient has no significant trauma from her falls. - Patient and patient's daughter expressed interest in at home nursing care and are open to the idea of assisted living. Will consult casework supervisor for assistance. - PT/OT consult ordered 2. A-fib with RVR - Potentially initiated by trauma of fall - Given 5mg metoprolol tartrate q5m x3 with good response - Will continue at home metoprolol, digoxin, xarelto 3. Asthma/COPD - Potential mild exacerbation, patient has increase sob, wheezing. o2 sat is good however - Will begin duonebs q6, prednisone 40mg daily - continue at home spiriva, singulair, advair, claritin 4. CHF - BNP is elevated, could be element of pt sob, however patient has no signs of fluid overload. BNP elevation could be secondary to afib with rvr - Will monitor sx 5. Chronic constipation - Patient on movantik at home, will be placed on bowel regimen here 6. HLD - continue rosuvastatin 7. Arthritis/chronic pain - Continue diclofenac topical, percocet, gabapentin 8. Depression - will continue lexapro - will hold nortriptyline and trazodone for now d/t acute delirium 9. Nicotine use - nicotine patch 10. Lung nodule - CTA chest noted spiculated 7.8mm nodule. Cannot r/o malignancy d/t long smoking hx. Can consider f/u outpatient if patient and family decides to pursue eval/tx for potential lung ca DVT prophylaxis - On xarelto]. Vital Signs Vital Signs Date Time Temp Pulse Resp B/P (MAP) Pulse Ox O2 Delivery O2 Flow Rate FiO2 12/29/20 20:17 105 130/66 12/29/20 20:16 19 94 Room Air 12/29/20 17:00 98.6 Laboratory Data Labs 24H Laboratory Tests 2 12/29/20 16:47: Immature Granulocyte % (Auto) 0.5, Neutrophils (%) (Auto) 74.9H, Lymphocytes (%) (Auto) 14.8L, Monocytes (%) (Auto) 7.9, Eosinophils (%) (Auto) 1.4, Basophils (%) (Auto) 0.5, Neutrophils # (Auto) 6.4, Lymphocytes # (Auto) 1.3L, Monocytes # (Auto) 0.7, Eosinophils # (Auto) 0.1, Basophils # (Auto) 0.0, Nucleated Red Blood Cells % (auto) 0.0, Anion Gap 5L, Glomerular Filtration Rate > 60.0, Lactic Acid Level 1.6, Calcium Level 9.7, Total Bilirubin 0.5, Direct Bilirubin 0.2, Aspartate Amino Transf (AST/SGOT) 14, Alanine Aminotransferase (ALT/SGPT) 12, Alkaline Phosphatase 130H, Ammonia < 10, Total Creatine Kinase 59, Creatine Kinase MB < 1.0, Creatine Kinase MB Relative Index 1.69, Troponin I < 0.02, VA-Vtr-D-Type Natriuretic Peptide 887H, Total Protein 7.2, Albumin 3.5, Albumin/Globulin Ratio 0.9L, Thyroid Stimulating Hormone (TSH) 2.140, Salicylates Level 2.5L, Acetaminophen Level < 2.0L, Ethyl Alcohol Level < 0.003 12/29/20 17:06: POC Glucose (Misc Panel) 90, POC Sodium (Misc Panel) 138, POC Potassium (Misc Panel) 4.7, POC Chloride (Misc Panel) 104, POC Total CO2 (Misc Panel) 30.0H, POC Blood Urea Nitrogen (Misc Panel 13, POC Ionized Calcium (Misc Panel) 4.6, POC Creatinine (Misc Panel) 0.6, POC Hematocrit (Misc Panel) 44.0 12/29/20 18:14: Urine Color YELLOW, Urine Appearance HAZY, Urine pH 5.0, Urine Specific [place] 1.019, Urine Protein NEGATIVE, Urine Glucose (UA) NEGATIVE, Urine Ketones NEGATIVE, Urine Blood 1+H, Urine Nitrite NEGATIVE, Urine Bilirubin NEGATIVE, Urine Urobilinogen 2.0H, Urine Leukocyte Esterase NEGATIVE, Urine WBC (Auto) 2, Urine RBC (Auto) 9H, Urine Hyaline Casts (Auto) 1, Urine Bacteria (Auto) NEGATIVE, Urine Squamous Epithelial Cells 4, Urine Mucus (Auto) SMALL, Urine Sperm (Auto) , Urine Opiates Screen NEGATIVE, Urine Methadone Screen NEGATIVE, Urine Barbiturates Screen NEGATIVE, Urine Phencyclidine Screen NEGATIVE, Urine Amphetamines Screen NEGATIVE, Urine Benzodiazepines Screen NEGATIVE, Urine Cocaine Metabolite Screen NEGATIVE, Urine Cannabinoids Screen NEGATIVE 12/29/20 20:26: CBC/BMP Laboratory Tests 12/29/20 16:47 Microbiology Microbiology 12/29/20 Blood Culture, Received Pending 12/29/20 Respiratory Virus Panel (PCR) (ASAF) - Final, Complete 12/29/20 Blood Culture, Received Pending Home Medications Scheduled Digoxin (Digoxin) 125 Mcg Tablet, 125 MCG PO DAILY Ergocalciferol (Vitamin D2) (Drisdol) 1,250 Mcg Capsule, 50,000 UNITS PO QWEEK MONDAYS Escitalopram Oxalate (Lexapro) 10 Mg Tablet, 10 MG PO DAILY Fluticasone Propion/Salmeterol (Wixela 500-50 Inhub) 1 Each Blst.w.dev, 1 PUFF INH BID Gabapentin (Gabapentin) 300 Mg Capsule, 300 MG PO BID Loratadine (Loratadine) 10 Mg Tablet, 10 MG PO DAILY Metoprolol Tartrate (Metoprolol Tartrate) 25 Mg Tablet, 25 MG PO BID Montelukast Sodium (Montelukast Sodium) 10 Mg Tablet, 10 MG PO QHS Naloxegol Oxalate (Movantik) 25 Mg Tablet, 25 MG PO DAILY Nortriptyline HCl (Nortriptyline HCl) 25 Mg Capsule, 25 MG PO QHS Omeprazole (Omeprazole) 40 Mg Capsule.dr, 40 MG PO BID Rivaroxaban (Xarelto) 20 Mg Tablet, 20 MG PO DAILY Rosuvastatin Calcium (Rosuvastatin Calcium) 40 Mg Tablet, 40 MG PO QHS Tiotropium [place] (Spiriva) 18 Mcg Cap.w.dev, 18 MCG INH DAILY Trazodone HCl (Trazodone HCl) 50 Mg Tablet, 50 MG PO QHS Scheduled PRN Albuterol Sulf (Albuterol Sulfate) 2.5 Mg/3 Ml Vial.neb, 2.5 MG INH QID PRN for SHORTNESS OF BREATH Albuterol Sulfate (Ventolin Hfa) 18 Gm Hfa.aer.ad, 2 PUFF INH Q4H PRN for SHORTNESS OF BREATH Diclofenac Sodium (Diclofenac Sodium) 1% 100GM Gel..gram., 4 GM TOP QID PRN for KNEE PAIN Apply to area of pain Fluticasone Propionate (Flonase Allergy Relief) 9.9 Ml [place].susp, 2 SPRAY NARES DAILY PRN for CONGESTION Oxycodone HCl/Acetaminophen (Percocet 5-325 mg Tablet) 1 Each Tablet, 1 TAB PO TID PRN for PAIN Allergies Coded Allergies: Penicillins (Verified Allergy, Unknown, ANAPHYLAXIS, 12/29/20) latex (Verified Allergy, Unknown, HIVES, 12/29/20) A-FIB/CHADSVASC A-FIB History Current/History of A-Fib/PAF?: Yes Current PO Anticoag Therapy: Yes ALTON GIORDANO December 29, 2020 21:30
[2020-12-29 21:50] VITALS: BP 116/75
[2020-12-29] MEDS: DOCUSATE SODIUM 100MG CAPSULE PO SCH (22:41)
[2020-12-29] MEDS: METOPROLOL TART 25 MG TABLET PO SCH (22:41)
[2020-12-29] MEDS: GABAPENTIN 300 MG CAP PO SCH (22:43)
[2020-12-29] MEDS: ROSUVASTATIN 10 MG TAB (CRESTOR) PO SCH (22:45)
[2020-12-29] MEDS: MONTELUKAST 10 MG TAB PO SCH (22:45)
[2020-12-29] MEDS: OMEPRAZOLE 20 MG CAP PO SCH (22:45)
[2020-12-29] MEDS: NICOTINE 14 MG/24 HR TRANSDERMAL TD SCH (22:45)
[2020-12-30] VITALS (15 sets, daily range): BP systolic 100–132; BP diastolic 50–80; O2SAT 93–95
[2020-12-30] MEDS: IPRATROPIUM 0.5MG/ALBUTEROL 2.5MG INH SOL UD 3ML (DUONEB) NEB SCH ×4 (02:36→20:00)
[2020-12-30 04:27] LABS: MEAN CORPUSCULAR HEMOGLOBIN 28.9 pg (27.0-33.0); MEAN CORPUSCULAR HGB CONC 32.7 g/dl (32.0-36.5); MEAN CORPUSCULAR VOLUME 88.6 fl (80.0-96.0); PLATELET COUNT, AUTOMATED 250 10^3/uL (150-450); RED BLOOD COUNT 4.63 10^6/uL (4.00-5.40); WHITE BLOOD COUNT 6.7 10^3/uL (4.0-10.0)
[2020-12-30 04:28] LABS: HEMOGLOBIN 13.4 g/dl (12.0-15.5)
[2020-12-30 04:46] LABS: BLOOD UREA NITROGEN 10 MG/DL (7-18); CALCIUM LEVEL 8.9 MG/DL (8.8-10.2); CARBON DIOXIDE LEVEL 30 MEQ/L (21-32); CHLORIDE LEVEL 106 MEQ/L (98-107); CREATININE FOR GFR 0.53 MG/DL (0.55-1.30); GLOMERULAR FILTRATION RATE > 60.0 (>39); GLUCOSE, FASTING 89 MG/DL (70-100); MAGNESIUM LEVEL 1.9 MG/DL (1.8-2.4); POTASSIUM SERUM 3.8 MEQ/L (3.5-5.1); SODIUM LEVEL 139 MEQ/L (136-145)
[2020-12-30 04:50] LABS: CPK CREATINE PHOSPHOKINASE 55 U/L (26-192); MB/CK RELATIVE INDEX 1.82 (< OR =4); TROPONIN I < 0.02 NG/ML (< 0.10)
[2020-12-30] MEDS: COMBIVENT RESPIMAT 100-20MCG INHALER 4GM INH SCH (07:18)
[2020-12-30] MEDS: TIOTROPIUM INHALER/CAPSULE (SPIRIVA) INH SCH (07:22)
[2020-12-30] MEDS: ADVAIR HFA 115/21MCG INHALER INH SCH ×2 (07:23→20:11)
[2020-12-30] MEDS: GABAPENTIN 300 MG CAP PO SCH ×2 (08:58→21:52)
[2020-12-30] MEDS: RIVAROXABAN 20 MG TAB (XARELTO) PO SCH (08:58)
[2020-12-30] MEDS: DIGOXIN 0.125 MG TAB PO SCH (08:58)
[2020-12-30] MEDS: ESCITALOPRAM OXALATE 10 MG TAB (LEXAPRO) PO SCH (08:58)
[2020-12-30] MEDS: predniSONE 20 MG TAB PO SCH (08:59)
[2020-12-30] MEDS: OMEPRAZOLE 20 MG CAP PO SCH ×2 (08:59→21:52)
[2020-12-30] MEDS: DOCUSATE SODIUM 100MG CAPSULE PO SCH ×2 (09:00→21:52)
[2020-12-30] MEDS: METOPROLOL TART 25 MG TABLET PO SCH ×3 (09:00→21:00)
[2020-12-30] MEDS: LORATADINE 10 MG TAB PO SCH (09:00)
[2020-12-30] MEDS: NICOTINE 14 MG/24 HR TRANSDERMAL TD SCH (09:01)
--- NOTE | 2020-12-30 09:14 | IPNPDOC ---
Text Note Date of Service The patient was seen on 12/30/20. NOTE Subjective: Patient is a 75-year-old female with a PMHx of HTN, Pulmonary HTN / Diastolic CHF, A fib (on Xarelto), DLP, NIDDM2, Asthma / COPD, Dementia who presented to the emergency room after being found down on the floor by her daughter. She reports that she likely was on the ground for less than a day. Patient is on her has reported that her mother has been rinsing increased visual and auditory hallucinations. Patient was admitted to the hospital service for further evaluation and treatment. Patient was seen and examined at the bedside. Patient is oriented to person, place and time. She denies any chest pain, shortness breath, palpitations. Has not experience any nausea, vomiting, abdominal pain or diarrhea. Denies any burning with urination. Objective: Vitals (See below) General: Sitting up in bed, appears to be comfortable, is oriented to person, place and time HEENT: NC, AT CVS: +S1S2 Lungs: Fair air entry b/l, -w/r/r Abdomen: Soft, ND, NT Extremities: Trace LE edema, - Calf tenderness Imaging: CXR 12/29: Cardiomegaly and chronic appearing changes. CT head 12/29: Age related atrophy and microvascular ischemic changes. No acute intracranial hemorrhage, infarction, or mass/mass effect. CTA Chest 12/29: 1. Spiculated nodule in the left upper lobe measures 7.8 mm. For patients at low risk (minimal or absent history of smoking and of other known risk factors), recommend CT Chest at 6-12 months, then consider CT Chest at 18-24 months. For patients at high risk (history of smoking or of other known risk factors), recommend CT Chest at 6-12 months, then CT Chest at 18-24 months. 2. There is no aortic dissection or aneurysm. 3. There are no pulmonary emboli. Findings consistent with remote intrathoracic granulomatous infection. Assessment and plan: Weakness - possibly 2/2 deconditioning - Patient currently appears to be oriented to person, place and time - No focal deficits - Patient is hemodynamically stable and afebrile - No leukocytosis - UA negative - Imaging noted above - c/w PT and OT A-fib with RVR - s/p Metoprolol tartrate IV - c/w rate / rhythm control with Metoprolol, Digoxin - c/w full anticoagulation with Xarelto Asthma/COPD - Physical reveals very faint wheezing - Continue with inhaled therapy as ordered - Patient has been started on prednisone in the emergency room Chronic CHF - Physical reveals trace lower extremity edema - Will continue to follow symptoms; patient does not take any diuretics as an outpatient. We'll continue to monitor Chronic constipation - Continue with bowel regimen as ordered DLP - c/w rosuvastatin Arthritis/chronic pain - c/w diclofenac topical, percocet, gabapentin Depression - c/w Escitalopram - Nortriptyline / Trazodone on hold - will slowly reintroduce within the next 24 hours Nicotine use - c/w Nicotine patch Lung nodule - CTA chest noted spiculated 7.8mm nodule; cannot r/o malignancy d/t long smoking history - Patient will need f/u outpatient will pulmonary / PCP for additional imaging / biopsy GERD - c/w Omeprazole DVT prophylaxis - c/w full and equal regulation with Xarelto Disposition: - Anticipate discharge within the next 24-48 hours VSMoe, I+O VSMoe I+O Laboratory Tests 12/29/20 16:47 12/30/20 04:14 Vital Signs Date Time Temp Pulse Resp B/P (MAP) Pulse Ox O2 Delivery O2 Flow Rate FiO2 12/30/20 09:00 100 115/71 12/30/20 07:30 98.0 18 100 Room Air I&O- Last 24 Hours up to 6 AM 12/30/20 06:00 Output Total 250 ml Balance -250 ml MANUEL KAISER MD December 30, 2020 09:14
[2020-12-30 12:43] LABS: CK-MB VALUE MASS 1.4 NG/ML (<3.6); CPK CREATINE PHOSPHOKINASE 58 U/L (26-192); MB/CK RELATIVE INDEX 2.41 (< OR =4); TROPONIN I < 0.02 NG/ML (< 0.10)
[2020-12-30] MEDS ORDERED: DIGOXIN INJ 0.5 MG/2 ML AMP (J1160) IV STA (13:49)
[2020-12-30] MEDS ORDERED: METOPROLOL 5 MG/5 ML VIAL IV STA ×2 (14:33→18:25)
[2020-12-30] MEDS ORDERED: GLUCAGON INJ 1MG VIAL SC PRN (18:10)
[2020-12-30] MEDS ORDERED: GLUCOSE 4GM CHEW TABLET PO PRN (18:10)
[2020-12-30] MEDS ORDERED: DEXTROSE 50% 50 ML SYRINGE IV PRN (18:10)
[2020-12-30] MEDS: HumaLOG INSULIN (NovoLOG) PER UNIT SC SCH (20:54)
[2020-12-30] MEDS ORDERED: HALOPERIDOL 5MG/ML VIAL (J1630 PER 1) IM STA (21:35)
[2020-12-30] MEDS: MONTELUKAST 10 MG TAB PO SCH (21:52)
[2020-12-30] MEDS: ROSUVASTATIN 10 MG TAB (CRESTOR) PO SCH (21:53)
[2020-12-31] VITALS (9 sets, daily range): BP systolic 96–141; BP diastolic 53–80; O2SAT 95
[2020-12-31] MEDS ORDERED: HALOPERIDOL 5MG/ML VIAL (J1630 PER 1) IM STA (00:26)
[2020-12-31] MEDS: IPRATROPIUM 0.5MG/ALBUTEROL 2.5MG INH SOL UD 3ML (DUONEB) NEB SCH (02:31)
[2020-12-31] MEDS: METOPROLOL TART 25 MG TABLET PO SCH ×4 (03:00→21:48)
[2020-12-31 05:59] LABS: HEMATOCRIT 39.8 % (36.0-47.0); HEMOGLOBIN 12.8 g/dl (12.0-15.5); MEAN CORPUSCULAR HEMOGLOBIN 28.8 pg (27.0-33.0); MEAN CORPUSCULAR HGB CONC 32.2 g/dl (32.0-36.5); MEAN CORPUSCULAR VOLUME 89.4 fl (80.0-96.0); PLATELET COUNT, AUTOMATED 253 10^3/uL (150-450); RED BLOOD COUNT 4.45 10^6/uL (4.00-5.40); WHITE BLOOD COUNT 9.5 10^3/uL (4.0-10.0)
[2020-12-31 06:33] LABS: BLOOD UREA NITROGEN 18 MG/DL (7-18); CARBON DIOXIDE LEVEL 28 MEQ/L (21-32); CHLORIDE LEVEL 105 MEQ/L (98-107); CREATININE FOR GFR 0.71 MG/DL (0.55-1.30); GLOMERULAR FILTRATION RATE > 60.0 (>39); GLUCOSE, FASTING 115 MG/DL (70-100); MAGNESIUM LEVEL 2.1 MG/DL (1.8-2.4); POTASSIUM SERUM 3.5 MEQ/L (3.5-5.1); SODIUM LEVEL 140 MEQ/L (136-145)
[2020-12-31] MEDS: HumaLOG INSULIN (NovoLOG) PER UNIT SC SCH ×4 (08:00→21:00)
[2020-12-31] MEDS ORDERED: LEVALBUTEROL 1.25 MG/0.5 ML CONCENTRATE NEB INH PRN (08:35)
--- NOTE | 2020-12-31 08:39 | IPNPDOC ---
Text Note Date of Service The patient was seen on 12/31/20. NOTE Subjective: Patient is a 75-year-old female with a PMHx of HTN, Pulmonary HTN / Diastolic CHF, A fib (on Xarelto), DLP, NIDDM2, Asthma / COPD, Dementia who presented to the emergency room after being found down on the floor by her daughter. She reports that she likely was on the ground for less than a day. Patient is on her has reported that her mother has been rinsing increased visual and auditory hallucinations. Patient was admitted to the hospital service for further evaluation and treatment. Patient was seen and examined at the bedside. Patient was sleeping upon my arrival, however, awoke and was easily aroused. Patient denied any chest pain, shortness breath or palpitations. Reports that she feels sick, was unable to describe. She is oriented to person, not place or time Objective: Vitals (See below) General: Patient is laying flat in bed, appears to be comfortable, not in any acute distress, oriented to person HEENT: NC, AT CVS: +S1S2 Lungs: Fair air entry b/l, no appreciable rhonchi or crackles. Mild wheezing can be appreciated bilaterally Abdomen: Soft, nondistended, nontender Extremities: Trace LE edema still persists, - Calf tenderness Imaging: CXR 12/29: Cardiomegaly and chronic appearing changes. CT head 12/29: Age related atrophy and microvascular ischemic changes. No acute intracranial hemorrhage, infarction, or mass/mass effect. CTA Chest 12/29: 1. Spiculated nodule in the left upper lobe measures 7.8 mm. For patients at low risk (minimal or absent history of smoking and of other known risk factors), recommend CT Chest at 6-12 months, then consider CT Chest at 18-24 months. For patients at high risk (history of smoking or of other known risk factors), recommend CT Chest at 6-12 months, then CT Chest at 18-24 months. 2. There is no aortic dissection or aneurysm. 3. There are no pulmonary emboli. Findings consistent with remote intrathoracic granulomatous infection. Assessment and plan: Weakness - possibly 2/2 deconditioning - This morning patient is oriented to person only - No focal deficits - Patient is hemodynamically stable and afebrile - No leukocytosis - UA negative - Imaging noted above - c/w PT and OT A-fib with RVR - s/p Metoprolol tartrate IV; Digoxin IV - c/w rate / rhythm control with Metoprolol, Digoxin - metoprolol frequency has been increased - c/w full anticoagulation with Xarelto Asthma/COPD - Patient may be having a mild exacerbation - Physical reveals diffuse wheezing bilaterally - Continue with inhaled therapy as ordered - c/w Prednisone for now; will taper within 24-48 hours Chronic CHF - Physical reveals trace lower extremity edema - BNP slightly elevated - Imaging noted above - Will repeat BNP - Patient does not take diuretics as an outpatient Chronic constipation - Continue with bowel regimen as ordered DLP - c/w rosuvastatin Arthritis/chronic pain - c/w diclofenac topical, Percocet, gabapentin Depression - c/w Escitalopram - Nortriptyline / Trazodone on hold - will slowly reintroduce within the next 24 hours Nicotine use - c/w Nicotine patch Lung nodule - CTA chest noted spiculated 7.8mm nodule; cannot r/o malignancy d/t long smoking history - Patient will need f/u outpatient will pulmonary / PCP for additional imaging / biopsy GERD - c/w Omeprazole DVT prophylaxis - c/w full and equal regulation with Xarelto Disposition: - Anticipate discharge within the next 24-48 hours VS,Fishbone, I+O VS, Fishbone, I+O Laboratory Tests 12/31/20 05:30 Vital Signs Date Time Temp Pulse Resp B/P (MAP) Pulse Ox O2 Delivery O2 Flow Rate FiO2 12/31/20 04:00 97.8 108 19 141/69 (93) 94 Room Air I&O- Last 24 Hours up to 6 AM 12/31/20 05:59 Intake Total 776 ml Output Total 200 ml Balance 576 ml MANUEL KAISER MD December 31, 2020 08:39
[2020-12-31] MEDS ORDERED: VITAMIN D 50,000 UNITS CAPSULE (ERGOCALCIFEROL 1.25MG) PO SCH (09:00)
[2020-12-31 09:03] LABS: NT-PRO BNP 1625 PG/ML (<450)
[2020-12-31] MEDS: predniSONE 20 MG TAB PO SCH (09:22)
[2020-12-31] MEDS: LORATADINE 10 MG TAB PO SCH (09:22)
[2020-12-31] MEDS: RIVAROXABAN 20 MG TAB (XARELTO) PO SCH (09:22)
[2020-12-31] MEDS: ESCITALOPRAM OXALATE 10 MG TAB (LEXAPRO) PO SCH (09:22)
[2020-12-31] MEDS: DIGOXIN 0.125 MG TAB PO SCH (09:22)
[2020-12-31] MEDS: DOCUSATE SODIUM 100MG CAPSULE PO SCH ×2 (09:22→21:35)
[2020-12-31] MEDS: OMEPRAZOLE 20 MG CAP PO SCH ×2 (09:23→21:35)
[2020-12-31] MEDS: GABAPENTIN 300 MG CAP PO SCH ×2 (09:23→21:35)
[2020-12-31] MEDS: NICOTINE 14 MG/24 HR TRANSDERMAL TD SCH (09:24)
[2020-12-31] MEDS: TIOTROPIUM INHALER/CAPSULE (SPIRIVA) INH SCH (10:07)
[2020-12-31] MEDS: LEVALBUTEROL 1.25 MG/0.5 ML CONCENTRATE NEB INH SCH ×4 (10:08→19:57)
[2020-12-31] MEDS: ADVAIR HFA 115/21MCG INHALER INH SCH ×2 (10:08→19:56)
[2020-12-31] MEDS: MOM 30ML SUSPENSION UDC PO PRN (10:14)
[2020-12-31] MEDS ORDERED: RAMELTEON 8 MG TAB (ROZEREM) PO PRN (19:55)
[2020-12-31] MEDS: MONTELUKAST 10 MG TAB PO SCH (21:35)
[2020-12-31] MEDS: ROSUVASTATIN 10 MG TAB (CRESTOR) PO SCH (21:35)
[2021-01-01] VITALS (7 sets, daily range): BP systolic 94–129; BP diastolic 56–75
[2021-01-01] MEDS: METOPROLOL TART 25 MG TABLET PO SCH (03:53)
[2021-01-01 05:43] LABS: HEMATOCRIT 38.3 % (36.0-47.0); HEMOGLOBIN 12.1 g/dl (12.0-15.5); MEAN CORPUSCULAR HEMOGLOBIN 28.3 pg (27.0-33.0); MEAN CORPUSCULAR HGB CONC 31.6 g/dl (32.0-36.5); MEAN CORPUSCULAR VOLUME 89.5 fl (80.0-96.0); PLATELET COUNT, AUTOMATED 263 10^3/uL (150-450); RED BLOOD COUNT 4.28 10^6/uL (4.00-5.40); WHITE BLOOD COUNT 9.5 10^3/uL (4.0-10.0)
[2021-01-01 05:44] LABS: BLOOD UREA NITROGEN 17 MG/DL (7-18); CARBON DIOXIDE LEVEL 30 MEQ/L (21-32); CHLORIDE LEVEL 106 MEQ/L (98-107); GLOMERULAR FILTRATION RATE > 60.0 (>39); GLUCOSE, FASTING 105 MG/DL (70-100); MAGNESIUM LEVEL 2.2 MG/DL (1.8-2.4); SODIUM LEVEL 140 MEQ/L (136-145)
[2021-01-01] MEDS: HumaLOG INSULIN (NovoLOG) PER UNIT SC SCH ×4 (08:00→21:00)
[2021-01-01] MEDS: ESCITALOPRAM OXALATE 10 MG TAB (LEXAPRO) PO SCH (08:00)
[2021-01-01] MEDS: LEVALBUTEROL 1.25 MG/0.5 ML CONCENTRATE NEB INH SCH ×4 (08:00→20:00)
[2021-01-01] MEDS: predniSONE 20 MG TAB PO SCH (08:01)
[2021-01-01] MEDS: LORATADINE 10 MG TAB PO SCH (08:01)
[2021-01-01] MEDS: DOCUSATE SODIUM 100MG CAPSULE PO SCH ×2 (08:01→21:03)
[2021-01-01] MEDS: OMEPRAZOLE 20 MG CAP PO SCH ×2 (08:01→21:05)
[2021-01-01] MEDS: GABAPENTIN 300 MG CAP PO SCH ×2 (08:01→21:04)
[2021-01-01] MEDS: DIGOXIN 0.125 MG TAB PO SCH (08:01)
[2021-01-01] MEDS: RIVAROXABAN 20 MG TAB (XARELTO) PO SCH (08:01)
[2021-01-01] MEDS: NICOTINE 14 MG/24 HR TRANSDERMAL TD SCH (08:02)
[2021-01-01] MEDS: TIOTROPIUM INHALER/CAPSULE (SPIRIVA) INH SCH (08:10)
[2021-01-01] MEDS: ADVAIR HFA 115/21MCG INHALER INH SCH ×2 (08:10→20:01)
[2021-01-01] MEDS ORDERED: METOPROLOL SUCC (TopROL XL) 50MG **XL** TAB PO SCH (09:00)
[2021-01-01] MEDS ORDERED: SLF 3 ML SYR IV PRN (10:45)
--- NOTE | 2021-01-01 12:59 | IPNPDOC ---
Text Note Date of Service The patient was seen on 01/01/21. NOTE Subjective: Patient is a 75-year-old female with a PMHx of HTN, Pulmonary HTN / Diastolic CHF, A fib (on Xarelto), DLP, NIDDM2, Asthma / COPD, Dementia who presented to the emergency room after being found down on the floor by her daughter. She reports that she likely was on the ground for less than a day. Patient is on her has reported that her mother has been rinsing increased visual and auditory hallucinations. Patient was admitted to the hospital service for further evaluation and treatment. Patient was seen and examined at the bedside. Patient was sitting up in bed. Denies any chest pain, shortness breath or palpitations. Has not experience any nausea, vomiting, abdominal pain or diarrhea. Has been up ambulating with physical therapy; recommended home with services. Objective: Vitals (See below) General: Patient appears to be sitting up in bed, appears comfortable, is oriented to person, place and time HEENT: Normocephalic and atraumatic CVS: +S1S2 Lungs: There appears to be fair air entry bilaterally without evidence of wheezing, crackles or rhonchi Abdomen: Remains soft without any appreciated tenderness or distention Extremities: Lower extremities do not reveal any significant pitting edema, - Calf tenderness Imaging: CXR 12/29: Cardiomegaly and chronic appearing changes. CT head 12/29: Age related atrophy and microvascular ischemic changes. No acute intracranial hemorrhage, infarction, or mass/mass effect. CTA Chest 12/29: 1. Spiculated nodule in the left upper lobe measures 7.8 mm. For patients at low risk (minimal or absent history of smoking and of other known risk factors), recommend CT Chest at 6-12 months, then consider CT Chest at 18-24 months. For patients at high risk (history of smoking or of other known risk factors), recommend CT Chest at 6-12 months, then CT Chest at 18-24 months. 2. There is no aortic dissection or aneurysm. 3. There are no pulmonary emboli. Findings consistent with remote intrathoracic granulomatous infection. Assessment and plan: Weakness - possibly 2/2 deconditioning - Patient is oriented to person, place and time - No focal deficits - Hemodynamically stable and afebrile - No leukocytosis - UA negative - Imaging noted above - c/w PT and OT; recommending home with services A-fib with RVR - s/p Metoprolol tartrate IV; Digoxin IV - c/w rate / rhythm control with Metoprolol, Digoxin - will adjust metoprolol to succinate dosing - c/w full anticoagulation with Xarelto Asthma/COPD - Patient may be having a mild exacerbation - Physical reveals diffuse wheezing bilaterally - Continue with inhaled therapy as ordered - Will begin tapering down dose prednisone Chronic CHF - Physical without any significant lower extremity edema - BNP slightly elevated - Imaging noted above - Patient does not take diuretics as an outpatient Chronic constipation - Continue with bowel regimen as ordered DLP - c/w rosuvastatin Arthritis/chronic pain - c/w diclofenac topical, Percocet, gabapentin Depression - c/w Escitalopram - Nortriptyline / Trazodone on hold - will slowly reintroduce within the next 24 hours Nicotine use - c/w Nicotine patch Lung nodule - CTA chest noted spiculated 7.8mm nodule; cannot r/o malignancy d/t long smoking history - Patient will need f/u outpatient will pulmonary / PCP for additional imaging / biopsy GERD - c/w Omeprazole DVT prophylaxis - c/w full and equal regulation with Xarelto Disposition: - Anticipate discharge home tomorrow VS,Fishbone, I+O VS, Fishbone, I+O Laboratory Tests 01/01/21 04:50 Vital Signs Date Time Temp Pulse Resp B/P (MAP) Pulse Ox O2 Delivery O2 Flow Rate FiO2 01/01/21 12:00 97.3 88 18 109/68 (82) 92 Room Air I&O- Last 24 Hours up to 6 AM 01/01/21 06:00 Intake Total 150 ml Output Total 700 ml Balance -550 ml MANUEL KAISER MD January 01, 2021 12:58
[2021-01-01] MEDS: SLF 3 ML SYR IV SCH ×2 (14:12→21:06)
[2021-01-01] MEDS: MOM 30ML SUSPENSION UDC PO PRN (18:03)
[2021-01-01] MEDS: METOPROLOL SUCC (TopROL XL) 100MG *XL* TAB PO SCH (20:40)
[2021-01-01] MEDS: MONTELUKAST 10 MG TAB PO SCH (21:04)
[2021-01-01] MEDS: ROSUVASTATIN 10 MG TAB (CRESTOR) PO SCH (21:04)
[2021-01-02] VITALS: BP 114/61
[2021-01-02 04:00] VITALS: BP 108/59
[2021-01-02] MEDS: SLF 3 ML SYR IV SCH ×2 (05:41→13:18)
[2021-01-02 06:02] LABS: HEMATOCRIT 39.9 % (36.0-47.0); HEMOGLOBIN 12.5 g/dl (12.0-15.5); MEAN CORPUSCULAR HEMOGLOBIN 28.3 pg (27.0-33.0); MEAN CORPUSCULAR HGB CONC 31.3 g/dl (32.0-36.5); MEAN CORPUSCULAR VOLUME 90.3 fl (80.0-96.0); PLATELET COUNT, AUTOMATED 276 10^3/uL (150-450); RED BLOOD COUNT 4.42 10^6/uL (4.00-5.40); WHITE BLOOD COUNT 8.6 10^3/uL (4.0-10.0)
[2021-01-02 06:20] LABS: BLOOD UREA NITROGEN 16 MG/DL (7-18); CARBON DIOXIDE LEVEL 29 MEQ/L (21-32); CHLORIDE LEVEL 106 MEQ/L (98-107); CREATININE FOR GFR 0.52 MG/DL (0.55-1.30); GLOMERULAR FILTRATION RATE > 60.0 (>39); GLUCOSE, FASTING 79 MG/DL (70-100); MAGNESIUM LEVEL 2.5 MG/DL (1.8-2.4); POTASSIUM SERUM 4.3 MEQ/L (3.5-5.1); SODIUM LEVEL 140 MEQ/L (136-145)
[2021-01-02 06:28] LABS: HEMOGLOBIN A1c 6.2 %
[2021-01-02] MEDS: HumaLOG INSULIN (NovoLOG) PER UNIT SC SCH ×2 (07:30→11:58)
[2021-01-02 08:00] VITALS: BP 114/70
[2021-01-02] MEDS: LEVALBUTEROL 1.25 MG/0.5 ML CONCENTRATE NEB INH SCH ×3 (08:00→15:32)
[2021-01-02] MEDS: ADVAIR HFA 115/21MCG INHALER INH SCH (08:22)
[2021-01-02] MEDS: TIOTROPIUM INHALER/CAPSULE (SPIRIVA) INH SCH (08:22)
[2021-01-02] MEDS ORDERED: predniSONE 10 MG TAB PO SCH (09:00)
[2021-01-02] MEDS: NICOTINE 14 MG/24 HR TRANSDERMAL TD SCH (09:00)
[2021-01-02] MEDS ORDERED: METO1TAB7 PO (09:25)
[2021-01-02] MEDS: OMEPRAZOLE 20 MG CAP PO SCH (09:26)
[2021-01-02 09:27] VITALS: BP 114/70
[2021-01-02] MEDS: GABAPENTIN 300 MG CAP PO SCH (09:27)
[2021-01-02] MEDS: METOPROLOL SUCC (TopROL XL) 100MG *XL* TAB PO SCH (09:27)
[2021-01-02] MEDS: LORATADINE 10 MG TAB PO SCH (09:27)
[2021-01-02] MEDS: ESCITALOPRAM OXALATE 10 MG TAB (LEXAPRO) PO SCH (09:27)
[2021-01-02] MEDS: RIVAROXABAN 20 MG TAB (XARELTO) PO SCH (09:27)
[2021-01-02] MEDS: DIGOXIN 0.125 MG TAB PO SCH (09:27)
[2021-01-02] MEDS: DOCUSATE SODIUM 100MG CAPSULE PO SCH (09:27)
[2021-01-02 12:00] VITALS: BP 110/59
[2021-01-02] MEDS ORDERED: PRED10TA2 PO (12:14)
--- NOTE | 2021-01-02 12:17 | DS.PDOC ---
Discharge Summary General Date of Admission December 29, 2020 at 19:31 Date of Discharge 01/02/2021 Discharge Summary PROCEDURES PERFORMED DURING STAY: [None]. ADMITTING DIAGNOSES / DISCHARGE DIAGNOSES: Weakness - possibly 2/2 deconditioning A-fib with RVR Asthma/COPD Chronic CHF Chronic constipation DLP Arthritis/chronic pain Depression Nicotine use Lung nodule GERD DVT prophylaxis COMPLICATIONS/CHIEF COMPLAINT: Confusion / Falls / A. fib HISTORY OF PRESENT ILLNESS: Patient is a 75-year-old female with a PMHx of HTN, Pulmonary HTN / Diastolic CHF, A fib (on Xarelto), DLP, NIDDM2, Asthma / COPD, Dementia who presented to the emergency room after being found down on the floor by her daughter. She reports that she likely was on the ground for less than a day. Patient is on her has reported that her mother has been rinsing increased visual and auditory hallucinations. Patient was admitted to the hospital service for further evaluation and treatment. HOSPITAL COURSE: Weakness - possibly 2/2 deconditioning - His morning patient appears to be fully oriented without any focal deficits on exam - No leukocytosis - UA negative - Imaging noted above - c/w PT and OT; recommending home with services - Will discharge home with services with additional physical therapy and will have outpatient follow-up with primary provider within the next 7 days A-fib with RVR - s/p Metoprolol tartrate IV; Digoxin IV - c/w rate / rhythm control with Metoprolol, Digoxin - will adjust metoprolol to succinate dosing - c/w full anticoagulation with Xarelto - Will have outpatient follow-up with cardiology within the next 7 days Asthma/COPD - Patient may be having a mild exacerbation - Physical again reveals slight wheezing bilaterally - c/w inhaled therapy as ordered - Will continue with prednisone taper on discharge Chronic CHF - Physical without any significant lower extremity edema - BNP slightly elevated - Imaging noted above - Patient does not take diuretics as an outpatient Chronic constipation - Continue with bowel regimen as ordered DLP - c/w rosuvastatin Arthritis/chronic pain - c/w diclofenac topical, Percocet, gabapentin Depression - c/w Escitalopram and Trazodone on discharge - Will discontinue Nortriptyline Nicotine use - c/w Nicotine patch Lung nodule - CTA chest noted spiculated 7.8mm nodule; cannot r/o malignancy d/t long smoking history - Patient will need f/u outpatient will pulmonary / PCP for additional imaging / biopsy GERD - c/w Omeprazole DVT prophylaxis - c/w full anticoagulation with Xarelto DISCHARGE MEDICATIONS: Please see below. ALLERGIES: Please see below. PHYSICAL EXAMINATION ON DISCHARGE: Vitals (See below) General: Patient sitting up in bed, appears comfortable HEENT: Normocephalic and atraumatic CVS: +S1S2 Lungs: Fair air entry bilaterally without any evidence of crackles or rhonchi. Mild wheezing is appreciated bilaterally Abdomen: Abdomen is soft, nondistended and nontender Extremities: Lower extremities do not reveal any significant edema, - Calf tenderness LABORATORY DATA: Please see below. IMAGING: CXR 12/29: Cardiomegaly and chronic appearing changes. CT head 12/29: Age related atrophy and microvascular ischemic changes. No acute intracranial hemorrhage, infarction, or mass/mass effect. CTA Chest 12/29: 1. Spiculated nodule in the left upper lobe measures 7.8 mm. For patients at low risk (minimal or absent history of smoking and of other known risk factors), recommend CT Chest at 6-12 months, then consider CT Chest at 18-24 months. For patients at high risk (history of smoking or of other known risk factors), recommend CT Chest at 6-12 months, then CT Chest at 18-24 months. 2. There is no aortic dissection or aneurysm. 3. There are no pulmonary emboli. Findings consistent with remote intrathoracic granulomatous infection. ACTIVITY: [As tolerated]. DISCHARGE PLAN: Follow-up with primary care provider within the next 7 days Follow up with cardiology within the next 7 days Remain compliant with treatment plan and medications Return to the ER if you experience any problems DISPOSITION: Home with services DISCHARGE CONDITION: [Stable]. TIME SPENT ON DISCHARGE: 35 minutes. Vital Signs/I&Os Vital Signs Date Time Temp Pulse Resp B/P (MAP) Pulse Ox O2 Delivery O2 Flow Rate FiO2 01/02/21 11:59 18 01/02/21 09:27 98 114/70 01/02/21 08:00 96.9 93 Room Air I&O- Last 24 Hours up to 6 AM 01/02/21 06:00 Intake Total 1140 ml Output Total 1075 ml Balance 65 ml Laboratory Data Labs 24H Laboratory Tests 2 01/01/21 17:16: Bedside Glucose (Misc Panel) 211H 01/01/21 20:34: Bedside Glucose (Misc Panel) 112H 01/02/21 05:26: Nucleated Red Blood Cells % (auto) 0.0, Anion Gap 5L, Glomerular Filtration Rate > 60.0, Estimated Mean Plasma Glucose 131H, Hemoglobin A1c 6.2, Calcium Level 10.0, Magnesium Level 2.5H 01/02/21 11:48: Bedside Glucose (Misc Panel) 96 CBC/BMP Laboratory Tests 01/02/21 05:26 FSBS Laboratory Tests Test 01/01/21 17:16 01/01/21 20:34 01/02/21 11:48 Range/Units Bedside Glucose (Misc Panel) 211 112 96 83-110 MG/DL Microbiology Microbiology 12/29/20 Blood Culture - Preliminary, Resulted No Growth after 72 hours. All specime... 12/29/20 Respiratory Virus Panel (PCR) (ASAF) - Final, Complete 12/29/20 Blood Culture - Preliminary, Resulted No Growth after 72 hours. All specime... Discharge Medications Scheduled Digoxin (Digoxin) 125 Mcg Tablet, 125 MCG PO DAILY, (Reported) Ergocalciferol (Vitamin D2) (Drisdol) 1,250 Mcg Capsule, 50,000 UNITS PO QWEEK, (Reported) MONDAYS Escitalopram Oxalate (Lexapro) 10 Mg Tablet, 10 MG PO DAILY, (Reported) Fluticasone Propion/Salmeterol (Wixela 500-50 Inhub) 1 Each Blst.w.dev, 1 PUFF INH BID, (Reported) Gabapentin (Gabapentin) 300 Mg Capsule, 300 MG PO BID, (Reported) Loratadine (Loratadine) 10 Mg Tablet, 10 MG PO DAILY, (Reported) Metoprolol Succinate (Metoprolol Succinate) 50 Mg Tab.er.24h, 50 MG PO BID Montelukast Sodium (Montelukast Sodium) 10 Mg Tablet, 10 MG PO QHS, (Reported) Naloxegol Oxalate (Movantik) 25 Mg Tablet, 25 MG PO DAILY, (Reported) Omeprazole (Omeprazole) 40 Mg Capsule.dr, 40 MG PO BID, (Reported) Rivaroxaban (Xarelto) 20 Mg Tablet, 20 MG PO DAILY, (Reported) Rosuvastatin Calcium (Rosuvastatin Calcium) 40 Mg Tablet, 40 MG PO QHS, (Reported) Tiotropium [place] (Spiriva) 18 Mcg Cap.w.dev, 18 MCG INH DAILY, (Reported) Trazodone HCl (Trazodone HCl) 50 Mg Tablet, 50 MG PO QHS, (Reported) Scheduled PRN Albuterol Sulf (Albuterol Sulfate) 2.5 Mg/3 Ml Vial.neb, 2.5 MG INH QID PRN for SHORTNESS OF BREATH, (Reported) Albuterol Sulfate (Ventolin Hfa) 18 Gm Hfa.aer.ad, 2 PUFF INH Q4H PRN for KELLI RTNESS OF BREATH, (Reported) Diclofenac Sodium (Diclofenac Sodium) 1% 100GM Gel..gram., 4 GM TOP QID PRN for KNEE PAIN, (Reported) Apply to area of pain Fluticasone Propionate (Flonase Allergy Relief) 9.9 Ml [place].susp, 2 SPRAY NARES DAILY PRN for CONGESTION, (Reported) Allergies Coded Allergies: Penicillins (Verified Allergy, Unknown, ANAPHYLAXIS, 12/29/20) latex (Verified Allergy, Unknown, HIVES, 12/29/20) MANUEL KAISER MD January 02, 2021 12:17
[2021-01-02 16:00] VITALS: BP 129/73
[2021-01-05] MEDS ORDERED: predniSONE 20 MG TAB PO SCH (09:00)
[2021-01-08] MEDS ORDERED: predniSONE 10 MG TAB PO SCH (09:00)
== END 2021-01-02 17:21 | disposition home or self-care (01) | DRG 309 ==
LOC: EDBD 16:17 → M ED 16:17 → M ED INP 19:31 → ENRESERV 20:38 → M PCU 21:40
PROVIDERS: ADMIT Family Medicine; ATTEND Internal Medicine
DX: I48.91 Unspecified atrial fibrillation (principal); J44.1 Chronic obstructive pulmonary disease with (acute) exacerbation; I50.32 Chronic diastolic (congestive) heart failure; F03.90 Unspecified dementia, unspecified severity, without behavioral disturbance, psychotic disturbance, mood disturbance, and anxiety; I27.20 Pulmonary hypertension, unspecified; E11.9 Type 2 diabetes mellitus without complications; R53.1 Weakness; M19.90 Unspecified osteoarthritis, unspecified site; R91.1 Solitary pulmonary nodule; K21.9 Gastro-esophageal reflux disease without esophagitis; F17.200 Nicotine dependence, unspecified, uncomplicated; F32.9 Major depressive disorder, single episode, unspecified; K59.00 Constipation, unspecified; Z79.01 Long term (current) use of anticoagulants; Z79.899 Other long term (current) drug therapy; Z88.0 Allergy status to penicillin; Z91.040 Latex allergy status

== ENCOUNTER → 2021-01-11 | Outpatient (REF) | payer MEDICARE, MEDICAID ==
[~2021-01-11] MED LIST changes: +DICL1GEL3 TOP; +FLON1SPR NARES; +FLUT1BLS3 INH; +LEXA1TAB PO; +LORA-674 PO; +METO1TAB7 PO; +METO25TA4 PO; +NALO25TA PO; +OMEP-221 PO; +PRED10TA2 PO; +ROSU40TA4 PO; +TRAZ1TAB10 PO; +VENTAER INH
[2021-01-11 17:16] LABS: BASO % 0.3 % (0.0-1.0); EOS # 0.1 10^3/uL (0.0-0.5); EOS % 0.4 % (0.0-3.0); HEMATOCRIT 45.1 % (36.0-47.0); HEMOGLOBIN 13.9 g/dl (12.0-15.5); LYMPH # 0.9 10^3/uL (1.5-5.0); MEAN CORPUSCULAR HEMOGLOBIN 28.5 pg (27.0-33.0); MEAN CORPUSCULAR HGB CONC 30.8 g/dl (32.0-36.5); MEAN CORPUSCULAR VOLUME 92.4 fl (80.0-96.0); MONO # 0.5 10^3/uL (0.0-0.8); MONO % 4.7 % (2.0-8.0); NEUTROPHILS # 9.9 10^3/uL (1.5-8.5); NEUTROPHILS % 85.8 % (36.0-66.0); PLATELET COUNT, AUTOMATED 318 10^3/uL (150-450); RED BLOOD COUNT 4.88 10^6/uL (4.00-5.40); WHITE BLOOD COUNT 11.5 10^3/uL (4.0-10.0)
[2021-01-11 17:22] LABS: APPEARANCE, URINE CLEAR (CLEAR); BACTERIA, URINE AUTO NEGATIVE (NEGATIVE); BILIRUBIN, URINE AUTO NEGATIVE (NEGATIVE); BLOOD, URINE BLOOD 1+ (NEGATIVE); COLOR, URINE YELLOW (YELLOW); GLUCOSE, URINE (UA) AUTO NEGATIVE (NEGATIVE); KETONE, URINE AUTO NEGATIVE (NEGATIVE); LEUKOCYTE ESTERASE, URINE AUTO 1+ (NEGATIVE); NITRITE, URINE AUTO NEGATIVE (NEGATIVE); PROTEIN, URINE AUTO NEGATIVE (NEGATIVE); RBC, URINE AUTO 4 /HPF (0-3); SPECIFIC GRAVITY URINE AUTO 1.014 (1.002-1.035); SQUAMOUS EPITHELIAL CELL UR AU 2 /HPF (0-6); UROBILINOGEN, URINE AUTO 0.2 mg/dL (0.0-2.0); WBC, URINE AUTO 1 /HPF (0-3)
[2021-01-11 18:09] LABS: ALBUMIN 3.5 GM/DL (3.2-5.2); ALT/SGPT 20 U/L (12-78); BILIRUBIN,TOTAL 0.4 MG/DL (0.2-1.0); BLOOD UREA NITROGEN 13 MG/DL (7-18); CALCIUM LEVEL 9.8 MG/DL (8.8-10.2); CARBON DIOXIDE LEVEL 33 MEQ/L (21-32); CHLORIDE LEVEL 102 MEQ/L (98-107); CREATININE FOR GFR 0.57 MG/DL (0.55-1.30); FERRITIN 99 NG/ML (8-252); GLOMERULAR FILTRATION RATE > 60.0 (>39); GLUCOSE, FASTING 149 MG/DL (70-100); NT-PRO BNP 987 PG/ML (<450); POTASSIUM SERUM 5.2 MEQ/L (3.5-5.1); SODIUM LEVEL 138 MEQ/L (136-145); TOTAL PROTEIN 6.8 GM/DL (6.4-8.2)
== END ==
LOC: M SFHCPLAZ 15:02
PROVIDERS: ATTEND Family Medicine
DX: I48.91 Unspecified atrial fibrillation (principal); R35.0 Frequency of micturition

== ENCOUNTER → 2021-01-29 | Outpatient (CLI) | payer MEDICARE, MEDICAID ==
--- NOTE | 2021-01-29 12:38 | REP ---
INDICATION: URINARY FREQ COMPARISON: None TECHNIQUE: Real time B-mode ultrasound examination using curved array transducer. FINDINGS: Bladder is normal in appearance without wall thickening or mass lesion. Bilateral ureteral jets are identified. Prevoid bladder measures 5.3 x 5.8 x 4.5 cm (90 cc). Postvoid bladder is completely emptied. Postvoid residual: 0% IMPRESSION: 1. Normal appearance of the bladder. At 90 cc volume, the patient stated she cannot further show the bladder. <Electronically signed by Raciel Cardenas > 01/29/21 1702
== END ==
LOC: M RAD 11:54
PROVIDERS: ATTEND Family Medicine
DX: R35.0 Frequency of micturition (principal)

== ENCOUNTER → 2021-02-11 | Outpatient (REF) | payer MEDICARE, MEDICAID ==
[~2021-02-11] MED LIST changes: +OMEP40CA4 PO; -OMEP40CA97 PO
[2021-02-11 17:25] LABS: BASO % 0.5 % (0.0-1.0); EOS # 0.1 10^3/uL (0.0-0.5); EOS % 1.1 % (0.0-3.0); HEMATOCRIT 42.6 % (36.0-47.0); HEMOGLOBIN 13.4 g/dl (12.0-15.5); LYMPH # 1.5 10^3/uL (1.5-5.0); LYMPH % 18.3 % (24.0-44.0); MEAN CORPUSCULAR HEMOGLOBIN 27.7 pg (27.0-33.0); MEAN CORPUSCULAR HGB CONC 31.5 g/dl (32.0-36.5); MEAN CORPUSCULAR VOLUME 88.2 fl (80.0-96.0); MONO # 0.8 10^3/uL (0.0-0.8); MONO % 10.3 % (2.0-8.0); NEUTROPHILS # 5.6 10^3/uL (1.5-8.5); NEUTROPHILS % 69.4 % (36.0-66.0); PLATELET COUNT, AUTOMATED 370 10^3/uL (150-450); RED BLOOD COUNT 4.83 10^6/uL (4.00-5.40); WHITE BLOOD COUNT 8.1 10^3/uL (4.0-10.0)
[2021-02-11 17:52] LABS: ALBUMIN 3.4 GM/DL (3.2-5.2); ALT/SGPT 11 U/L (12-78); BILIRUBIN,TOTAL 0.3 MG/DL (0.2-1.0); BLOOD UREA NITROGEN 8 MG/DL (7-18); CALCIUM LEVEL 9.6 MG/DL (8.8-10.2); CARBON DIOXIDE LEVEL 31 MEQ/L (21-32); CHLORIDE LEVEL 103 MEQ/L (98-107); CREATININE FOR GFR 0.54 MG/DL (0.55-1.30); DIGOXIN LEVEL 0.7 NG/ML (0.5-2.0); FREE T4 1.03 NG/DL (0.76-1.46); GLOMERULAR FILTRATION RATE > 60.0 (>39); GLUCOSE, FASTING 74 MG/DL (70-100); NT-PRO BNP 1372 PG/ML (<450); POTASSIUM SERUM 4.4 MEQ/L (3.5-5.1); PTH INTACT 61.1 PG/ML (18.5-88.0); SODIUM LEVEL 138 MEQ/L (136-145); TOTAL 25(OH) VITAMIN D 46.1 NG/ML (30.0-100.0); TOTAL PROTEIN 6.9 GM/DL (6.4-8.2)
== END ==
LOC: M SFHCPLAZ 14:49
PROVIDERS: ATTEND Family Medicine
DX: R73.01 Impaired fasting glucose (principal); J30.89 Other allergic rhinitis; I48.91 Unspecified atrial fibrillation; E78.5 Hyperlipidemia, unspecified; Z79.899 Other long term (current) drug therapy
CPT/HCPCS: 36415; 80053; 80162; 82306; 83735; 83880; 83970; 84439; 84443; 85025; G0463

== ENCOUNTER → 2021-02-28 | Outpatient (CLI) | payer MEDICARE, MEDICAID ==
[2021-02-28 17:57] LABS: ALBUMIN 3.4 GM/DL (3.2-5.2); BLOOD UREA NITROGEN 13 MG/DL (7-18); CALCIUM LEVEL 9.6 MG/DL (8.8-10.2); CARBON DIOXIDE LEVEL 30 MEQ/L (21-32); CHLORIDE LEVEL 100 MEQ/L (98-107); CREATININE FOR GFR 0.66 MG/DL (0.55-1.30); GLOMERULAR FILTRATION RATE > 60.0 (>39); GLUCOSE, FASTING 104 MG/DL (70-100); NT-PRO BNP 1056 PG/ML (<450); PHOSPHORUS LEVEL 3.5 MG/DL (2.5-4.9); POTASSIUM SERUM 4.4 MEQ/L (3.5-5.1); SODIUM LEVEL 139 MEQ/L (136-145)
== END ==
LOC: M PLALAB 14:29
PROVIDERS: ATTEND Physician Assistant
DX: I50.32 Chronic diastolic (congestive) heart failure (principal)
CPT/HCPCS: 36415; 80069; 83735; 83880; G0463

== ENCOUNTER 2021-04-05 10:29 | Emergency (ER) | payer MEDICARE, MEDICAID ==
[~2021-04-05] VITALS: Ht 167.6 cm; Wt 73.9 kg
[2021-04-05] MEDS ORDERED: methylPREDNISolone 125MG 2ML VIAL IV ONE (11:00)
[2021-04-05] MEDS: IPRATROPIUM 0.5MG/ALBUTEROL 2.5MG INH SOL UD 3ML (DUONEB) NEB SCH ×3 (11:09→11:31)
--- NOTE | 2021-04-05 11:18 | REP ---
INDICATION: DYSPNEA/COUGH. COMPARISON: 12/29/2020 also portable. Older priors also reviewed. TECHNIQUE: Portable FINDINGS: The technique utilized in obtaining the radiograph has magnified the cardiac silhouette and accentuated the interstitial markings. There is global cardiomegaly accentuated by technique status quo. The nodule seen in the right lobe on multiple priors is for the most part obscured by extra head of drama leads. There is evidence of interstitial fibrotic change status quo. No acute patchy parenchymal opacities or pleural effusions have developed. There is no significant change in appearance of the osseous structures. IMPRESSION: Stable appearing chronic changes. <Electronically signed by Sergio Godoy > 04/05/21 1115
[2021-04-05 11:53] LABS: VENOUS BASE EXCESS 3.2 (-2.0-2.0); VENOUS HCO3 27.5 MEQ/L (23.0-27.0); VENOUS O2 SATURATION 98.9 % (60.0-80.0); VENOUS PARTIAL PRESSURE CO2 40.9 mmHg (38.0-50.0); VENOUS PARTIAL PRESSURE O2 182.7 mmHg (30.0-50.0); VENOUS PH 7.445 UNITS (7.330-7.430); VENOUS STANDARD HCO3 27.3 MEQ/L; VENOUS TOTAL CO2 28.7 MEQ/L (24.0-28.0)
[2021-04-05 11:57] LABS: BASO % 0.3 % (0.0-1.0); EOS # 0.1 10^3/uL (0.0-0.5); EOS % 0.8 % (0.0-3.0); HEMATOCRIT 39.8 % (36.0-47.0); HEMOGLOBIN 12.7 g/dl (12.0-15.5); LYMPH # 1.3 10^3/uL (1.5-5.0); LYMPH % 11.3 % (24.0-44.0); MEAN CORPUSCULAR HEMOGLOBIN 27.5 pg (27.0-33.0); MEAN CORPUSCULAR HGB CONC 31.9 g/dl (32.0-36.5); MEAN CORPUSCULAR VOLUME 86.3 fl (80.0-96.0); MONO # 0.8 10^3/uL (0.0-0.8); MONO % 7.3 % (2.0-8.0); NEUTROPHILS % 79.9 % (36.0-66.0); PLATELET COUNT, AUTOMATED 357 10^3/uL (150-450); RED BLOOD COUNT 4.61 10^6/uL (4.00-5.40); WHITE BLOOD COUNT 11.3 10^3/uL (4.0-10.0)
[2021-04-05] MEDS ORDERED: FURO20TA2 PO (12:11)
[2021-04-05] MEDS ORDERED: BUPR10DI3 TR (12:11)
[2021-04-05] MEDS ORDERED: ERGO500029 PO (12:11)
[2021-04-05 12:51] LABS: ALBUMIN 3.1 GM/DL (3.2-5.2); ALT/SGPT 13 U/L (12-78); BILIRUBIN,DIRECT 0.1 MG/DL (0.0-0.2); BILIRUBIN,TOTAL 0.6 MG/DL (0.2-1.0); BLOOD UREA NITROGEN 10 MG/DL (7-18); CALCIUM LEVEL 8.8 MG/DL (8.8-10.2); CARBON DIOXIDE LEVEL 27 MEQ/L (21-32); CHLORIDE LEVEL 103 MEQ/L (98-107); CREATININE FOR GFR 0.67 MG/DL (0.55-1.30); GLOMERULAR FILTRATION RATE > 60.0 (>39); GLUCOSE, FASTING 98 MG/DL (70-100); NT-PRO BNP 1761 PG/ML (<450); POTASSIUM SERUM 4.2 MEQ/L (3.5-5.1); SODIUM LEVEL 137 MEQ/L (136-145); TOTAL PROTEIN 6.7 GM/DL (6.4-8.2)
[2021-04-05 13:56] LABS: DIGOXIN LEVEL 1.3 NG/ML (0.5-2.0)
[2021-04-05 14:30] VITALS: BP 119/59
[2021-04-05] MEDS ORDERED: PRED20TA PO (15:04)
[2021-04-05] MEDS ORDERED: LEVO750T14 PO (15:07)
--- NOTE | 2021-04-06 07:42 | ECGEPIP ---
[facility] - ED Test Date: 2021-04-05 Pat Name: MARGARITA SCOTT Department: Room: - Gender: Female Ekg Manager: SHIRA : 1945 Requested By: Nikki Kilgore Order Number: [id number] Reading MD: Jose Flood Measurements Intervals [place] Rate: 91 P: MT: QRS: 23 QRSD: 84 T: 262 QT: 356 QTc: 437 Interpretive Statements Atrial fibrillation ST & T wave abnormality, consider anterolateral ischemia SIMILAR TO 12/29/20 Electronically Signed on 04-06-2021 7:41:39 EDT by Jose Flood
== END 2021-04-05 15:20 | disposition home or self-care (01) ==
LOC: M ED 10:29
DX: J44.9 Chronic obstructive pulmonary disease, unspecified (principal); E11.9 Type 2 diabetes mellitus without complications; I10 Essential (primary) hypertension; J45.909 Unspecified asthma, uncomplicated; E78.5 Hyperlipidemia, unspecified; G47.33 Obstructive sleep apnea (adult) (pediatric); Z99.89 Dependence on other enabling machines and devices; Z79.899 Other long term (current) drug therapy; Z79.01 Long term (current) use of anticoagulants; Z88.0 Allergy status to penicillin; Z91.040 Latex allergy status; F17.210 Nicotine dependence, cigarettes, uncomplicated
CPT/HCPCS: 71045; 80047; 80048; 80076; 80162; 82803; 83605; 83880; 84443; 84484; 85025; 87040; 87798; 93005; 93041; 94640; 96374; 99285; J2930

== ENCOUNTER 2021-05-17 14:18 | Emergency (ER) | payer MEDICARE, MEDICAID ==
[~2021-05-17] VITALS: Ht 167.6 cm; Wt 71.4 kg
[~2021-05-17 14:18] MED LIST changes: +BUPR10DI3 TR; +ERGO500029 PO; +FURO20TA2 PO; +LEVO750T14 PO; +PRED20TA PO
[2021-05-17 14:47] VITALS: BP 109/63
--- NOTE | 2021-05-17 14:55 | REPVR ---
PROCEDURE INFORMATION: Exam: CT Head Without Contrast Exam date and time: 05/17/2021 2:23 PM Age: 75 years old Clinical indication: Injury or trauma; Fall; Blunt trauma (contusions or hematomas); Consciousness not specified; Additional info: Fall on thinners TECHNIQUE: Imaging protocol: Computed tomography of the head without contrast. Radiation optimization: All CT scans at this facility use at least one of these dose optimization techniques: automated exposure control; mA and/or kV adjustment per patient size (includes targeted exams where dose is matched to clinical indication); or iterative reconstruction. COMPARISON: CT Head without contrast 12/29/2020 4:38 PM FINDINGS: Brain: There is no acute intracranial hemorrhage, cerebral edema, or midline shift. Chronic microvascular ischemic changes are seen in the periventricular white matter. Age-related cerebral and cerebellar volume loss is present. Cerebral ventricles: No hydrocephalus. Paranasal sinuses: There is no acute sinusitis. Mastoid air cells: The mastoid air cells are clear. Orbital cavity: The included orbital structures are unremarkable. Vasculature: Atherosclerotic calcifications are seen involving the cavernous carotid arteries. Bones/joints: No acute fracture. Soft tissues: Unremarkable. IMPRESSION: 1. No acute intracranial abnormality. 2. Atrophy and chronic deep white matter ischemic changes. Electronically signed by: Mac Reed On 05/17/2021 14:54:54 PM
--- NOTE | 2021-05-17 15:01 | REPVR ---
PROCEDURE INFORMATION: Exam: CT Cervical Spine Without Contrast Exam date and time: 05/17/2021 2:23 PM Age: 75 years old Clinical indication: Injury or trauma; Fall; Blunt trauma; Additional info: Fall on thinners TECHNIQUE: Imaging protocol: Computed tomography images of the cervical spine without contrast. Radiation optimization: All CT scans at this facility use at least one of these dose optimization techniques: automated exposure control; mA and/or kV adjustment per patient size (includes targeted exams where dose is matched to clinical indication); or iterative reconstruction. COMPARISON: CT Head without contrast 12/29/2020 4:38 PM FINDINGS: Bones/joints: Bone mineralization is decreased, suggestive of osteopenia. No acute fracture is identified. Discs/Spinal canal/Neural foramina: Severe degenerative changes of the cervical spine are present. There is no severe spinal canal stenosis. Multilevel neural foraminal narrowing from uncinate spurring and facet arthropathy is noted. Lungs: Lung apices are clear. Vasculature: Atherosclerotic calcifications are present at the carotid bifurcations. Soft tissues: Unremarkable. IMPRESSION: 1. No acute abnormality. 2. Chronic findings as discussed above. Electronically signed by: Mac Reed On 05/17/2021 15:00:56 PM
--- NOTE | 2021-05-17 15:45 | REP ---
INDICATION: s/p mechanical fall COMPARISON: None. TECHNIQUE: Three views bilateral shoulders. FINDINGS: There is no evidence of acute fracture, dislocation, or intrinsic bone disease.There is moderate narrowing and spurring at both acromioclavicular joints and glenohumeral joints. Incidental note is made of a calcified granuloma in the right perihilar region. Multiple old left rib fractures are noted. IMPRESSION: No fracture or dislocation. Moderate degenerative changes bilaterally. <Electronically signed by Ronny Robledo > 05/17/21 [id number]
[2021-05-17 16:16] LABS: INR 1.96; PROTHROMBIN TIME 22.7 SECONDS (12.7-14.5)
[2021-05-17 16:17] LABS: PARTIAL THROMBOPLASTIN TIME 41.9 SECONDS (25.9-37.0)
[2021-05-17] MEDS ORDERED: ACETAMINOPHEN 325 MG TAB PO ONE (16:20)
== END 2021-05-17 16:44 | disposition home or self-care (01) ==
LOC: M ED 14:18
DX: S00.03XA Contusion of scalp, initial encounter (principal); S80.211A Abrasion, right knee, initial encounter; W18.39XA Other fall on same level, initial encounter; Y92.018 Other place in single-family (private) house as the place of occurrence of the external cause; Z79.899 Other long term (current) drug therapy; Z79.01 Long term (current) use of anticoagulants; Z88.0 Allergy status to penicillin; Z91.040 Latex allergy status

== ENCOUNTER → 2021-07-10 | Outpatient (REF) | payer MEDICARE, MEDICAID ==
[2021-07-10 17:52] LABS: BASO % 0.4 % (0.0-1.0); EOS # 0.1 10^3/uL (0.0-0.5); EOS % 1.1 % (0.0-3.0); HEMATOCRIT 45.6 % (36.0-47.0); HEMOGLOBIN 14.2 g/dl (12.0-15.5); LYMPH # 1.4 10^3/uL (1.5-5.0); LYMPH % 12.8 % (24.0-44.0); MEAN CORPUSCULAR HEMOGLOBIN 26.2 pg (27.0-33.0); MEAN CORPUSCULAR HGB CONC 31.1 g/dl (32.0-36.5); MONO # 0.9 10^3/uL (0.0-0.8); MONO % 8.6 % (2.0-8.0); NEUTROPHILS # 8.4 10^3/uL (1.5-8.5); NEUTROPHILS % 76.8 % (36.0-66.0); PLATELET COUNT, AUTOMATED 372 10^3/uL (150-450); RED BLOOD COUNT 5.43 10^6/uL (4.00-5.40); WHITE BLOOD COUNT 10.9 10^3/uL (4.0-10.0)
[2021-07-10 18:20] LABS: ALT/SGPT 10 U/L (12-78); BILIRUBIN,TOTAL 0.4 MG/DL (0.2-1.0); BLOOD UREA NITROGEN 10 MG/DL (7-18); CALCIUM LEVEL 9.7 MG/DL (8.8-10.2); CARBON DIOXIDE LEVEL 32 MEQ/L (21-32); CHLORIDE LEVEL 98 MEQ/L (98-107); CREATININE FOR GFR 0.96 MG/DL (0.55-1.30); GLOMERULAR FILTRATION RATE > 60.0 (>39); GLUCOSE, FASTING 131 MG/DL (70-100); POTASSIUM SERUM 3.9 MEQ/L (3.5-5.1); SODIUM LEVEL 138 MEQ/L (136-145)
[2021-07-10 18:21] LABS: ALBUMIN 3.1 GM/DL (3.2-5.2); CHOLESTEROL LEVEL 166 MG/DL (<200); CHOLESTEROL RISK RATIO 3.608 (<5); HDL CHOLESTEROL 46 MG/DL (>40); LDL CHOLESTEROL 88 MG/DL (<100); NON-HDL-C 120 MG/DL; NT-PRO BNP 1608 PG/ML (<450); TOTAL PROTEIN 7.3 GM/DL (6.4-8.2); TRIGLYCERIDES LEVEL 161 MG/DL (<150)
[2021-07-10 18:25] LABS: TOTAL 25(OH) VITAMIN D 87.2 NG/ML (30.0-100.0)
[2021-07-10 19:07] LABS: HEMOGLOBIN A1c 6.4 %
== END ==
LOC: M PLALAB 16:56 → M SFHCPLAZ 16:56
PROVIDERS: ATTEND Nurse Practitioner Family
DX: R73.01 Impaired fasting glucose (principal); E78.5 Hyperlipidemia, unspecified; E55.9 Vitamin D deficiency, unspecified; I48.91 Unspecified atrial fibrillation

== ENCOUNTER → 2021-08-19 | Outpatient (CLI) | payer MEDICARE, MEDICAID ==
[~2021-08-19] MED LIST changes: +BUPR20DI3 TD; +FLON1SPR; -FLON1SPR NARES; +GASTROGRAFIN SOLUTION 30ML (Q9963) As Ordered ONE; +ISOVUE-370 76% 100ML VIAL As Ordered ONE; -MONT10TA10 PO; +MONT10TA97 PO; +MUCI600T31 PO; +OLOP0.1D OU; -OMEP-221 PO; +OMEP40CA5 PO; +[UNRECOGNIZED DRUG - CODE] EXT
== END ==
LOC: M RAD 15:02
PROVIDERS: ATTEND Family Medicine
DX: R91.1 Solitary pulmonary nodule (principal)
CPT/HCPCS: 71260; Q9967

== ENCOUNTER 2021-09-23 14:04 | Inpatient (IN) | payer MEDICARE, MEDICAID ==
[~2021-09-23] VITALS: Ht 172.7 cm; Wt 68.3 kg
[~2021-09-23 14:04] MED LIST changes: -BUPR20DI3 TD; -GASTROGRAFIN SOLUTION 30ML (Q9963) As Ordered ONE; -ISOVUE-370 76% 100ML VIAL As Ordered ONE; -MUCI600T31 PO; -OLOP0.1D OU; -[UNRECOGNIZED DRUG - CODE] EXT
[2021-09-23 15:33] LABS: BASO % 0.4 % (0.0-1.0); EOS # 0.1 10^3/uL (0.0-0.5); HEMATOCRIT 44.6 % (36.0-47.0); HEMOGLOBIN 14.5 g/dl (12.0-15.5); LYMPH # 1.6 10^3/uL (1.5-5.0); LYMPH % 16.7 % (24.0-44.0); MEAN CORPUSCULAR HEMOGLOBIN 26.9 pg (27.0-33.0); MEAN CORPUSCULAR HGB CONC 32.5 g/dl (32.0-36.5); MEAN CORPUSCULAR VOLUME 82.6 fl (80.0-96.0); MONO # 0.9 10^3/uL (0.0-0.8); MONO % 9.3 % (2.0-8.0); NEUTROPHILS # 6.9 10^3/uL (1.5-8.5); NEUTROPHILS % 72.4 % (36.0-66.0); PLATELET COUNT, AUTOMATED 357 10^3/uL (150-450); WHITE BLOOD COUNT 9.5 10^3/uL (4.0-10.0)
[2021-09-23 15:58] LABS: ALBUMIN 3.4 GM/DL (3.2-5.2); ALT/SGPT 13 U/L (12-78); BILIRUBIN,DIRECT 0.1 MG/DL (0.0-0.2); BILIRUBIN,TOTAL 0.3 MG/DL (0.2-1.0); BLOOD UREA NITROGEN 11 MG/DL (7-18); CALCIUM LEVEL 9.7 MG/DL (8.8-10.2); CARBON DIOXIDE LEVEL 31 MEQ/L (21-32); CHLORIDE LEVEL 100 MEQ/L (98-107); CREATININE FOR GFR 0.69 MG/DL (0.55-1.30); ETHYL ALCOHOL (ETHANOL) < 0.003 % (0.000-0.010); GLOMERULAR FILTRATION RATE > 60.0 (>39); GLUCOSE, FASTING 103 MG/DL (70-100); POTASSIUM SERUM 3.9 MEQ/L (3.5-5.1); SODIUM LEVEL 138 MEQ/L (136-145)
[2021-09-23 20:16] LABS: AMPHETAMINES LEVEL URINE NEGATIVE (NEGATIVE); BARBITURATES URINE NEGATIVE (NEGATIVE); BENZODIAZEPINES URINE NEGATIVE (NEGATIVE); CANNABINOIDS URINE NEGATIVE (NEGATIVE); COCAINE METABOLITE URINE NEGATIVE (NEGATIVE); METHADONE URINE NEGATIVE (NEGATIVE); OPIATES URINE POSITIVE (NEGATIVE); PHENCYCLIDINE URINE NEGATIVE (NEGATIVE)
[2021-09-23 20:56] LABS: DIGOXIN LEVEL 1.2 NG/ML (0.5-2.0)
[2021-09-23] MEDS ORDERED: ISOVUE-370 76% 100ML VIAL As Ordered ONE (22:08)
[2021-09-23] MEDS ORDERED: ALBUTEROL SULFATE 2.5 MG/0.5 ML INH NEB SOLN NEB PRN (23:25)
[2021-09-23] MEDS ORDERED: NS 1,000 ML IV SCH (23:25)
[2021-09-23] MEDS ORDERED: HYDROMORPHONE HCL 0.5 MG/ 0.5 ML SYRINGE (J1170 PER 1) IV PRN (23:25)
[2021-09-24] MEDS ORDERED: PANTOPRAZOLE 40MG VIAL (C9113 PER 1) IV ONE (01:00)
[2021-09-24 01:20] VITALS: BP 130/72
[2021-09-24] MEDS ORDERED: METO1TAB7 PO (01:22)
[2021-09-24] MEDS ORDERED: BUPR20DI3 TD (01:22)
[2021-09-24] MEDS ORDERED: LEXA1TAB PO (01:22)
[2021-09-24] MEDS ORDERED: HOME MED LIST COMPLETE! XX SCH (01:25)
[2021-09-24] MEDS ORDERED: BENZONATATE 100MG CAPSULE PO PRN (02:00)
[2021-09-24] MEDS ORDERED: IPRATROPIUM 0.5MG/ALBUTEROL 2.5MG INH SOL UD 3ML (DUONEB) NEB SCH (02:00)
[2021-09-24] MEDS ORDERED: FLUTICASONE PROP 0.05% NASAL SPRAY 16 GM (FLONASE) PRN (05:35)
[2021-09-24 06:00] VITALS: BP 133/73
[2021-09-24] MEDS ORDERED: LACT20EL PO (06:10)
[2021-09-24] MEDS ORDERED: MUCI600T31 PO (06:10)
[2021-09-24] MEDS ORDERED: [UNRECOGNIZED DRUG - CODE] EXT (06:10)
[2021-09-24] MEDS ORDERED: OLOP0.1D OU (06:10)
[2021-09-24] MEDS ORDERED: OLOPATADINE 0.1% OPHTH SOL 5ML(PATANOL) OU PRN (06:40)
[2021-09-24] MEDS: TIOTROPIUM INHALER/CAPSULE (SPIRIVA) INH SCH (07:30)
[2021-09-24] MEDS ORDERED: MORPHINE 2 MG/ML 1ML VIAL (J2270) IV PRN (08:00)
[2021-09-24 09:12] LABS: HEMATOCRIT 40.6 % (36.0-47.0); HEMOGLOBIN 13.4 g/dl (12.0-15.5); MEAN CORPUSCULAR HEMOGLOBIN 27.1 pg (27.0-33.0); PLATELET COUNT, AUTOMATED 319 10^3/uL (150-450); RED BLOOD COUNT 4.95 10^6/uL (4.00-5.40); WHITE BLOOD COUNT 8.6 10^3/uL (4.0-10.0)
[2021-09-24] MEDS: LACTULOSE 20 GM/30 ML SYRUP UD PO SCH ×2 (09:38→20:04)
[2021-09-24] MEDS: DOCUSATE SODIUM 100MG CAPSULE PO SCH ×2 (09:38→20:05)
[2021-09-24] MEDS: DIGOXIN 0.125 MG TAB PO SCH (09:39)
[2021-09-24] MEDS: LORATADINE 10 MG TAB PO SCH (09:39)
[2021-09-24] MEDS: GABAPENTIN 300 MG CAP PO SCH ×2 (09:40→20:05)
[2021-09-24] MEDS: FUROSEMIDE 20 MG TAB PO SCH (09:40)
[2021-09-24 09:45] LABS: ALBUMIN 2.9 GM/DL (3.2-5.2); ALT/SGPT 13 U/L (12-78); BILIRUBIN,TOTAL 0.5 MG/DL (0.2-1.0); BLOOD UREA NITROGEN 9 MG/DL (7-18); CALCIUM LEVEL 9.4 MG/DL (8.8-10.2); CARBON DIOXIDE LEVEL 27 MEQ/L (21-32); CHLORIDE LEVEL 104 MEQ/L (98-107); CREATININE FOR GFR 0.59 MG/DL (0.55-1.30); GLOMERULAR FILTRATION RATE > 60.0 (>39); GLUCOSE, FASTING 91 MG/DL (70-100); POTASSIUM SERUM 3.7 MEQ/L (3.5-5.1); SODIUM LEVEL 138 MEQ/L (136-145); TOTAL PROTEIN 6.8 GM/DL (6.4-8.2)
[2021-09-24] MEDS: METOPROLOL SUCC (TopROL XL) 50MG **XL** TAB PO SCH ×2 (09:52→20:06)
[2021-09-24] MEDS ORDERED: GLUCAGON INJ 1MG VIAL SC PRN (11:15)
[2021-09-24] MEDS ORDERED: DEXTROSE 50% 50 ML SYRINGE IV PRN (11:15)
[2021-09-24] MEDS ORDERED: GLUCOSE 4GM CHEW TABLET PO PRN (11:15)
[2021-09-24] MEDS ORDERED: ALBUTEROL 90 MCG/ACT 8GM HFA INHALER INH PRN (11:45)
[2021-09-24] MEDS ORDERED: ALBUTEROL SULFATE 2.5 MG/0.5 ML INH NEB SOLN INH PRN (11:45)
[2021-09-24] MEDS ORDERED: HumaLOG INSULIN (NovoLOG) PER UNIT SC SCH ×2 (12:00→21:00)
[2021-09-24 14:00] VITALS: BP 124/83
[2021-09-24] MEDS: NICOTINE 14 MG/24 HR TRANSDERMAL TD SCH (14:33)
[2021-09-24] MEDS: NYSTATIN 100,000 UNITS/GM TOPICAL PWD 15 GM TOP SCH ×2 (14:33→20:07)
[2021-09-24] MEDS: RIVAROXABAN 20 MG TAB (XARELTO) PO SCH (18:07)
[2021-09-24] MEDS: ROSUVASTATIN 10 MG TAB (CRESTOR) PO SCH (20:05)
[2021-09-24] MEDS: MONTELUKAST 10 MG TAB PO SCH (20:05)
[2021-09-24] MEDS: PANTOPRAZOLE 40MG TAB (PROTONIX) PO SCH (20:05)
[2021-09-24] MEDS: OMEPRAZOLE 20MG CAP PO SCH (20:06)
[2021-09-24] MEDS: ESCITALOPRAM OXALATE 10 MG TAB (LEXAPRO) PO SCH (20:06)
[2021-09-24] MEDS: SENNA 8.6 MG TAB (SENOKOT) PO SCH (20:14)
[2021-09-24] MEDS ORDERED: PANTOPRAZOLE 40MG VIAL (C9113 PER 1) IV SCH (21:00)
[2021-09-24 21:09] VITALS: BP 122/81
[2021-09-25 05:29] VITALS: BP 107/56
[2021-09-25 06:00] LABS: HEMATOCRIT 40.5 % (36.0-47.0); HEMOGLOBIN 13.1 g/dl (12.0-15.5); MEAN CORPUSCULAR HEMOGLOBIN 26.8 pg (27.0-33.0); MEAN CORPUSCULAR HGB CONC 32.3 g/dl (32.0-36.5); PLATELET COUNT, AUTOMATED 293 10^3/uL (150-450); RED BLOOD COUNT 4.88 10^6/uL (4.00-5.40); WHITE BLOOD COUNT 7.4 10^3/uL (4.0-10.0)
[2021-09-25 06:57] LABS: ALBUMIN 2.8 GM/DL (3.2-5.2); ALT/SGPT 11 U/L (12-78); BILIRUBIN,TOTAL 0.6 MG/DL (0.2-1.0); BLOOD UREA NITROGEN 8 MG/DL (7-18); CARBON DIOXIDE LEVEL 27 MEQ/L (21-32); CHLORIDE LEVEL 107 MEQ/L (98-107); CREATININE FOR GFR 0.63 MG/DL (0.55-1.30); GLOMERULAR FILTRATION RATE > 60.0 (>39); GLUCOSE, FASTING 90 MG/DL (70-100); POTASSIUM SERUM 3.6 MEQ/L (3.5-5.1); SODIUM LEVEL 141 MEQ/L (136-145); TOTAL PROTEIN 6.6 GM/DL (6.4-8.2)
[2021-09-25] MEDS: TIOTROPIUM INHALER/CAPSULE (SPIRIVA) INH SCH (08:18)
[2021-09-25] MEDS: METOPROLOL SUCC (TopROL XL) 50MG **XL** TAB PO SCH ×2 (09:00→21:00)
[2021-09-25] MEDS ORDERED: BUPRENORPHINE 20 MCG/HR TD SCH (09:00)
[2021-09-25] MEDS: NICOTINE 14 MG/24 HR TRANSDERMAL TD SCH (09:43)
[2021-09-25] MEDS: LACTULOSE 20 GM/30 ML SYRUP UD PO SCH ×2 (09:43→19:39)
[2021-09-25] MEDS: OMEPRAZOLE 20MG CAP PO SCH ×2 (09:44→22:48)
[2021-09-25] MEDS: DOCUSATE SODIUM 100MG CAPSULE PO SCH ×2 (09:44→19:39)
[2021-09-25] MEDS: LORATADINE 10 MG TAB PO SCH (09:44)
[2021-09-25] MEDS: GABAPENTIN 300 MG CAP PO SCH ×2 (09:44→22:48)
[2021-09-25] MEDS: FUROSEMIDE 20 MG TAB PO SCH (09:44)
[2021-09-25] MEDS: NYSTATIN 100,000 UNITS/GM TOPICAL PWD 15 GM TOP SCH ×2 (09:57→22:49)
[2021-09-25] MEDS: DIGOXIN 0.125 MG TAB PO SCH (09:57)
[2021-09-25 14:00] VITALS: BP 104/62
[2021-09-25] MEDS: RIVAROXABAN 20 MG TAB (XARELTO) PO SCH (17:22)
[2021-09-25] MEDS: SENNA 8.6 MG TAB (SENOKOT) PO SCH (21:00)
[2021-09-25 22:00] VITALS: BP 103/60
[2021-09-25] MEDS ORDERED: RAMELTEON 8 MG TAB (ROZEREM) PO PRN (22:10)
[2021-09-25] MEDS: PANTOPRAZOLE 40MG TAB (PROTONIX) PO SCH (22:48)
[2021-09-25] MEDS: ESCITALOPRAM OXALATE 10 MG TAB (LEXAPRO) PO SCH (22:48)
[2021-09-25] MEDS: ROSUVASTATIN 10 MG TAB (CRESTOR) PO SCH (22:48)
[2021-09-25] MEDS: MONTELUKAST 10 MG TAB PO SCH (22:48)
[2021-09-26 06:00] VITALS: BP 102/61
[2021-09-26 06:01] LABS: HEMATOCRIT 39.4 % (36.0-47.0); HEMOGLOBIN 12.7 g/dl (12.0-15.5); MEAN CORPUSCULAR HEMOGLOBIN 26.7 pg (27.0-33.0); MEAN CORPUSCULAR HGB CONC 32.2 g/dl (32.0-36.5); MEAN CORPUSCULAR VOLUME 82.9 fl (80.0-96.0); PLATELET COUNT, AUTOMATED 292 10^3/uL (150-450); RED BLOOD COUNT 4.75 10^6/uL (4.00-5.40); WHITE BLOOD COUNT 7.2 10^3/uL (4.0-10.0)
[2021-09-26 06:24] LABS: ALBUMIN 2.8 GM/DL (3.2-5.2); ALT/SGPT 11 U/L (12-78); BILIRUBIN,TOTAL 0.5 MG/DL (0.2-1.0); BLOOD UREA NITROGEN 10 MG/DL (7-18); CALCIUM LEVEL 8.9 MG/DL (8.8-10.2); CARBON DIOXIDE LEVEL 28 MEQ/L (21-32); CHLORIDE LEVEL 107 MEQ/L (98-107); CREATININE FOR GFR 0.62 MG/DL (0.55-1.30); GLOMERULAR FILTRATION RATE > 60.0 (>39); GLUCOSE, FASTING 101 MG/DL (70-100); POTASSIUM SERUM 3.5 MEQ/L (3.5-5.1); SODIUM LEVEL 141 MEQ/L (136-145); TOTAL PROTEIN 6.5 GM/DL (6.4-8.2)
[2021-09-26] MEDS: TIOTROPIUM INHALER/CAPSULE (SPIRIVA) INH SCH (07:27)
[2021-09-26] MEDS: NICOTINE 14 MG/24 HR TRANSDERMAL TD SCH (08:35)
[2021-09-26] MEDS: FUROSEMIDE 20 MG TAB PO SCH (08:35)
[2021-09-26] MEDS: OMEPRAZOLE 20MG CAP PO SCH (08:35)
[2021-09-26] MEDS: LORATADINE 10 MG TAB PO SCH (08:35)
[2021-09-26] MEDS: GABAPENTIN 300 MG CAP PO SCH (08:35)
[2021-09-26] MEDS: NYSTATIN 100,000 UNITS/GM TOPICAL PWD 15 GM TOP SCH (08:36)
[2021-09-26] MEDS: DOCUSATE SODIUM 100MG CAPSULE PO SCH (08:36)
[2021-09-26] MEDS: LACTULOSE 20 GM/30 ML SYRUP UD PO SCH (08:36)
[2021-09-26 08:40] VITALS: BP 110/75
[2021-09-26] MEDS: METOPROLOL SUCC (TopROL XL) 50MG **XL** TAB PO SCH (08:40)
[2021-09-26] MEDS: DIGOXIN 0.125 MG TAB PO SCH (08:41)
== END 2021-09-26 16:20 | disposition home health service (06) | DRG 57 ==
LOC: M ED 14:04 → M ED INP 14:05 → ENRESERV 09-24 00:39 → M MSPAV 09-24 01:18 → OBSVTOIN 09-24 08:58
PROVIDERS: ADMIT Internal Medicine; ATTEND Internal Medicine
DX: G31.83 Neurocognitive disorder with Lewy bodies (principal); F11.20 Opioid dependence, uncomplicated; Z79.52 Long term (current) use of systemic steroids; Z79.01 Long term (current) use of anticoagulants; Z79.899 Other long term (current) drug therapy; Z88.0 Allergy status to penicillin; Z91.040 Latex allergy status; I10 Essential (primary) hypertension; J44.9 Chronic obstructive pulmonary disease, unspecified; I48.91 Unspecified atrial fibrillation; F17.200 Nicotine dependence, unspecified, uncomplicated; F02.80 Dementia in other diseases classified elsewhere, unspecified severity, without behavioral disturbance, psychotic disturbance, mood disturbance, and anxiety; I27.81 Cor pulmonale (chronic); K21.9 Gastro-esophageal reflux disease without esophagitis; E78.00 Pure hypercholesterolemia, unspecified; Z20.822 Contact with and (suspected) exposure to COVID-19; R10.9 Unspecified abdominal pain; R26.89 Other abnormalities of gait and mobility; E16.2 Hypoglycemia, unspecified; H26.9 Unspecified cataract

== ENCOUNTER → 2021-10-18 | Outpatient (CLI) | payer MEDICARE, MEDICAID ==
[~2021-10-18] MED LIST changes: +BUPR20DI3 TD; +MUCI600T31 PO; +OLOP0.1D OU; +[UNRECOGNIZED DRUG - CODE] EXT
== END ==
LOC: M PLAIMG 14:30
PROVIDERS: ATTEND Physician Assistant
DX: M51.26 Other intervertebral disc displacement, lumbar region (principal); M43.06 Spondylolysis, lumbar region; M43.07 Spondylolysis, lumbosacral region; M41.26 Other idiopathic scoliosis, lumbar region; M48.062 Spinal stenosis, lumbar region with neurogenic claudication; G89.29 Other chronic pain

== ENCOUNTER 2021-12-09 14:22 | Outpatient (CLI) | payer MEDICARE, MEDICAID ==
[~2021-12-09] VITALS: Ht 167.6 cm; Wt 68.2 kg
[~2021-12-09 14:22] MED LIST changes: -OLOP0.1D OU; +OLOP5DRO16 OU
[2021-12-09] MEDS ORDERED: ZOLEDRONIC ACID 5 MG in IV 1 EA IV ONE (14:30)
[2021-12-09 14:49] VITALS: BP 112/63
== END 2021-12-09 15:35 | disposition home or self-care (01) ==
LOC: M INFU 14:22
PROVIDERS: ATTEND Family Medicine
DX: S22.000A Wedge compression fracture of unspecified thoracic vertebra, initial encounter for closed fracture (principal); X58.XXXA Exposure to other specified factors, initial encounter; Y92.9 Unspecified place or not applicable; Y93.9 Activity, unspecified; Y99.9 Unspecified external cause status
CPT/HCPCS: 96365; J3489

== ENCOUNTER → 2022-03-31 | Outpatient (CLI) | payer MEDICARE, MEDICAID ==
[~2022-03-31] MED LIST changes: +ALBU2.5V10 INH; -ALBU83IN INH
[2022-03-31 15:38] LABS: BASO # 0.1 10^3/uL (0.0-0.2); BASO % 0.5 % (0.0-1.0); EOS # 0.2 10^3/uL (0.0-0.5); EOS % 1.8 % (0.0-3.0); HEMATOCRIT 46.2 % (36.0-47.0); HEMOGLOBIN 14.3 g/dl (12.0-15.5); LYMPH # 1.4 10^3/uL (1.5-5.0); LYMPH % 14.6 % (24.0-44.0); MEAN CORPUSCULAR HEMOGLOBIN 27.2 pg (27.0-33.0); MONO # 0.9 10^3/uL (0.0-0.8); MONO % 9.3 % (2.0-8.0); NEUTROPHILS % 73.4 % (36.0-66.0); PLATELET COUNT, AUTOMATED 317 10^3/uL (150-450); RED BLOOD COUNT 5.25 10^6/uL (4.00-5.40); WHITE BLOOD COUNT 9.6 10^3/uL (4.0-10.0)
[2022-03-31 15:56] LABS: HEMOGLOBIN A1c 6.4 %
[2022-03-31 16:29] LABS: ALBUMIN 3.8 GM/DL (3.2-5.2); ALT/SGPT 14 U/L (12-78); BILIRUBIN,TOTAL 0.3 MG/DL (0.2-1.0); BLOOD UREA NITROGEN 10 MG/DL (7-18); CALCIUM LEVEL 9.6 MG/DL (8.8-10.2); CARBON DIOXIDE LEVEL 31 MEQ/L (21-32); CHLORIDE LEVEL 106 MEQ/L (98-107); CREATININE FOR GFR 0.74 MG/DL (0.55-1.30); DIGOXIN LEVEL 0.9 NG/ML (0.5-2.0); FERRITIN 60 NG/ML (8-252); FREE T4 0.85 NG/DL (0.76-1.46); GLOMERULAR FILTRATION RATE > 60.0 (>39); GLUCOSE, FASTING 91 MG/DL (70-100); MAGNESIUM LEVEL 2.2 MG/DL (1.8-2.4); NT-PRO BNP 1281 PG/ML (<450); POTASSIUM SERUM 4.2 MEQ/L (3.5-5.1); SODIUM LEVEL 143 MEQ/L (136-145); TOTAL PROTEIN 7.1 GM/DL (6.4-8.2)
[2022-03-31 16:49] LABS: VITAMIN B12 LEVEL 389 PG/ML (247-911)
[2022-04-07 15:07] LABS: BUPRENORPHINE FREE SERUM <1 ng/mL (1-10); SOLUBLE TRANSFERRIN RECEPTOR 21.8 nmol/L (12.2-27.3)
== END ==
LOC: M PLALAB 13:47
PROVIDERS: ATTEND Family Medicine
DX: I50.810 Right heart failure, unspecified (principal); G89.4 Chronic pain syndrome; I48.91 Unspecified atrial fibrillation; Z79.899 Other long term (current) drug therapy

== ENCOUNTER → 2022-06-13 | Outpatient (CLI) | payer MEDICARE, MEDICAID | LOC: M RAD 12:49 | PROVIDERS: ATTEND Internal Medicine Pulmonary Disease | DX: Z12.2 Encounter for screening for malignant neoplasm of respiratory organs (principal); F17.218 Nicotine dependence, cigarettes, with other nicotine-induced disorders; J43.9 Emphysema, unspecified; M80.08XA Age-related osteoporosis with current pathological fracture, vertebra(e), initial encounter for fracture; X58.XXXA Exposure to other specified factors, initial encounter; Y92.9 Unspecified place or not applicable; Y93.9 Activity, unspecified; Y99.9 Unspecified external cause status ==

== ENCOUNTER → 2022-06-27 | Outpatient (CLI) | payer MEDICARE, MEDICAID | LOC: M WHC 14:18 | PROVIDERS: ATTEND Family Medicine | DX: Z12.31 Encounter for screening mammogram for malignant neoplasm of breast (principal) ==

== ENCOUNTER → 2022-07-04 | Outpatient (REF) | payer MEDICARE, MEDICAID ==
[~2022-07-04] MED LIST changes: -PAXI20TA29 PO; +PAXI20TA30 PO
[2022-07-04 18:25] LABS: RSV AMPLIFICATION POSITIVE (NEGATIVE)
== END ==
LOC: M SFHCPLAZ 17:11
PROVIDERS: ATTEND Physician Assistant
DX: R05.1 Acute cough (principal)

== ENCOUNTER → 2022-11-21 | Outpatient (CLI) | payer MEDICARE, MEDICAID ==
[~2022-11-21] MED LIST changes: +MONT-5 PO; -SING10TA32 PO
[2022-11-21 17:46] LABS: BASO # 0.1 10^3/uL (0.0-0.2); BASO % 0.7 % (0.0-1.0); EOS # 0.2 10^3/uL (0.0-0.5); EOS % 2.1 % (0.0-3.0); HEMATOCRIT 42.6 % (36.0-47.0); HEMOGLOBIN 13.2 g/dl (12.0-15.5); LYMPH # 1.6 10^3/uL (1.5-5.0); LYMPH % 17.4 % (24.0-44.0); MEAN CORPUSCULAR HEMOGLOBIN 27.7 pg (27.0-33.0); MEAN CORPUSCULAR VOLUME 89.3 fl (80.0-96.0); MONO # 0.8 10^3/uL (0.0-0.8); MONO % 8.6 % (2.0-8.0); NEUTROPHILS # 6.5 10^3/uL (1.5-8.5); NEUTROPHILS % 70.9 % (36.0-66.0); PLATELET COUNT, AUTOMATED 314 10^3/uL (150-450); RED BLOOD COUNT 4.77 10^6/uL (4.00-5.40); WHITE BLOOD COUNT 9.2 10^3/uL (4.0-10.0)
[2022-11-21 18:12] LABS: CPK CREATINE PHOSPHOKINASE 48 U/L (34-145)
[2022-11-21 18:13] LABS: RHEUMATOID FACTOR QUANT < 3.5 IU/ML (<14)
[2022-11-21 18:17] LABS: ALBUMIN 3.4 G/DL (3.2-5.2); ALKALINE PHOSPHATASE 110 U/L (46-116); ALT/SGPT < 9 U/L (7.0-40); AST/SGOT 15 U/L (<34); BILIRUBIN,TOTAL 0.3 MG/DL (0.3-1.2); BLOOD UREA NITROGEN 11 MG/DL (9-23); CALCIUM LEVEL 8.8 MG/DL (8.3-10.6); CARBON DIOXIDE LEVEL 33 MMOL/L (20-31); CHLORIDE LEVEL 102 MMOL/L (98-107); CHOLESTEROL LEVEL 158 MG/DL (<200); CHOLESTEROL RISK RATIO 2.81 (<5); CREATININE FOR GFR 0.83 MG/DL (0.55-1.30); FERRITIN 32.6 NG/ML (7.3-270.7); FREE T4 0.92 NG/DL (0.89-1.76); GLOMERULAR FILTRATION RATE > 60.0 (>39); GLUCOSE, FASTING 91 MG/DL (74-106); HDL CHOLESTEROL 56.2 MG/DL (>40); LDL CHOLESTEROL 75.8 MG/DL (<100); NON-HDL-C 101.8 MG/DL; SODIUM LEVEL 140 MMOL/L (136-145); THYROID STIMULATING HORMONE 2.803 uIU/ML (0.55-4.78); TOTAL PROTEIN 6.4 G/DL (5.7-8.2); TRIGLYCERIDES LEVEL 130 MG/DL (<150)
[2022-11-21 18:52] LABS: HEMOGLOBIN A1c 6.5 % (4.0-6.0)
[2022-11-21 18:55] LABS: ERYTHROCYTE SEDIMENTATION RATE 59 mm/hr (0-30)
== END ==
LOC: M PLALAB 14:14
PROVIDERS: ATTEND Family Medicine
DX: R73.01 Impaired fasting glucose (principal); E78.5 Hyperlipidemia, unspecified; I50.810 Right heart failure, unspecified; D50.9 Iron deficiency anemia, unspecified; M12.9 Arthropathy, unspecified

== ENCOUNTER 2022-12-18 14:46 | Outpatient (CLI) | payer MEDICARE, MEDICAID ==
[~2022-12-18] VITALS: Ht 165.1 cm; Wt 68.0 kg
[~2022-12-18 14:46] MED LIST changes: -OLOP5DRO16 OU; +OLOP5DRO17 OU
[2022-12-18] MEDS ORDERED: ZOLEDRONIC ACID 5 MG in IV 1 EA IV ONE (15:30)
[2022-12-18 15:45] VITALS: BP 98/60
== END 2022-12-18 15:45 ==
LOC: M INFU 14:46
PROVIDERS: ATTEND Family Medicine
DX: S22.000A Wedge compression fracture of unspecified thoracic vertebra, initial encounter for closed fracture (principal)
CPT/HCPCS: 96365; J3489

== ENCOUNTER → 2023-06-22 | Outpatient (REF) | payer MEDICARE, MEDICAID ==
[~2023-06-22] MED LIST changes: +DICL100G10 TOP; -DICL1GEL3 TOP; +LORA-1041 PO; -LORA-674 PO
== END ==
LOC: M SFHCPLAZ 15:33
PROVIDERS: ATTEND Family Medicine
DX: M12.9 Arthropathy, unspecified (principal); D50.9 Iron deficiency anemia, unspecified; R73.01 Impaired fasting glucose; Z53.9 Procedure and treatment not carried out, unspecified reason

== ENCOUNTER → 2023-06-22 | Outpatient (CLI) | payer MEDICARE, MEDICAID ==
[2023-06-22 17:30] LABS: BASO # 0.1 10^3/uL (0.0-0.2); BASO % 0.6 % (0.0-1.0); EOS # 0.2 10^3/uL (0.0-0.5); EOS % 2.2 % (0.0-3.0); HEMATOCRIT 42.7 % (36.0-47.0); HEMOGLOBIN 13.4 g/dl (12.0-15.5); LYMPH # 1.4 10^3/uL (1.5-5.0); LYMPH % 13.9 % (24.0-44.0); MEAN CORPUSCULAR HEMOGLOBIN 26.6 pg (27.0-33.0); MEAN CORPUSCULAR HGB CONC 31.4 g/dl (32.0-36.5); MEAN CORPUSCULAR VOLUME 84.9 fl (80.0-96.0); MONO # 0.8 10^3/uL (0.0-0.8); MONO % 8.4 % (2.0-8.0); NEUTROPHILS # 7.5 10^3/uL (1.5-8.5); NEUTROPHILS % 74.6 % (36.0-66.0); PLATELET COUNT, AUTOMATED 328 10^3/uL (150-450); RED BLOOD COUNT 5.03 10^6/uL (4.00-5.40)
[2023-06-22 23:00] LABS: ALBUMIN 3.3 G/DL (3.2-5.2); ALKALINE PHOSPHATASE 96 U/L (46-116); ALT/SGPT 12 U/L (7.0-40); AST/SGOT 15 U/L (<34); BILIRUBIN,TOTAL 0.2 MG/DL (0.3-1.2); BLOOD UREA NITROGEN 13 MG/DL (9-23); CALCIUM LEVEL 9.4 MG/DL (8.3-10.6); CARBON DIOXIDE LEVEL 34 MMOL/L (20-31); CHLORIDE LEVEL 102 MMOL/L (98-107); CREATININE FOR GFR 0.84 MG/DL (0.55-1.30); GLOMERULAR FILTRATION RATE > 60.0 (>39); GLUCOSE, FASTING 86 MG/DL (74-106); POTASSIUM SERUM 4.7 MMOL/L (3.5-5.1); SODIUM LEVEL 141 MMOL/L (136-145); TOTAL PROTEIN 6.8 G/DL (5.7-8.2)
[2023-06-22 23:04] LABS: FERRITIN 23.4 NG/ML (7.3-270.7)
[2023-06-23 00:42] LABS: HEMOGLOBIN A1c 6.6 % (4.0-6.0)
== END ==
LOC: M PLALAB 15:42
PROVIDERS: ATTEND Family Medicine
DX: M12.9 Arthropathy, unspecified (principal); D50.9 Iron deficiency anemia, unspecified; R73.01 Impaired fasting glucose; I50.810 Right heart failure, unspecified

== ENCOUNTER → 2023-10-30 | Outpatient (CLI) | payer MEDICARE, MEDICAID ==
[2023-10-30 18:03] LABS: BASO # 0.1 10^3/uL (0.0-0.2); BASO % 0.6 % (0.0-1.0); EOS # 0.1 10^3/uL (0.0-0.5); EOS % 1.6 % (0.0-3.0); HEMATOCRIT 39.4 % (36.0-47.0); HEMOGLOBIN 11.7 g/dl (12.0-15.5); LYMPH % 11.8 % (24.0-44.0); MEAN CORPUSCULAR HEMOGLOBIN 24.8 pg (27.0-33.0); MEAN CORPUSCULAR HGB CONC 29.7 g/dl (32.0-36.5); MEAN CORPUSCULAR VOLUME 83.5 fl (80.0-96.0); MONO # 0.5 10^3/uL (0.0-0.8); MONO % 6.1 % (2.0-8.0); NEUTROPHILS % 79.6 % (36.0-66.0); PLATELET COUNT, AUTOMATED 270 10^3/uL (150-450); RED BLOOD COUNT 4.72 10^6/uL (4.00-5.40); WHITE BLOOD COUNT 8.8 10^3/uL (4.0-10.0)
[2023-10-30 18:18] LABS: C REACTIVE PROTEIN QUANTITATIV 4.6 MG/DL (<1.0)
[2023-10-30 18:20] LABS: BILIRUBIN,TOTAL 0.3 MG/DL (0.3-1.2); CALCIUM LEVEL 8.9 MG/DL (8.3-10.6); CREATININE FOR GFR 1.11 MG/DL (0.55-1.30); GLOMERULAR FILTRATION RATE 50.5 (>39); HEMOGLOBIN A1c 7.5 % (4.0-6.0); POTASSIUM SERUM 3.4 MMOL/L (3.5-5.1); TOTAL PROTEIN 6.4 G/DL (5.7-8.2)
[2023-10-30 18:23] LABS: FERRITIN 27.9 NG/ML (7.3-270.7)
[2023-10-30 18:27] LABS: ERYTHROCYTE SEDIMENTATION RATE 87 mm/hr (0-30)
== END ==
LOC: M PLALAB 14:35
PROVIDERS: ATTEND Family Medicine
DX: R73.01 Impaired fasting glucose (principal); D50.9 Iron deficiency anemia, unspecified; I50.32 Chronic diastolic (congestive) heart failure; M12.9 Arthropathy, unspecified; G89.4 Chronic pain syndrome

== ENCOUNTER → 2023-10-30 | Outpatient (REF) | payer MEDICARE, MEDICAID | LOC: M SFHCPLAZ 14:17 | PROVIDERS: ATTEND Family Medicine | DX: R73.01 Impaired fasting glucose (principal); I50.32 Chronic diastolic (congestive) heart failure; D50.9 Iron deficiency anemia, unspecified; M12.9 Arthropathy, unspecified; G89.4 Chronic pain syndrome ==

== ENCOUNTER → 2024-01-11 | Outpatient (CLI) | payer MEDICARE, MEDICAID ==
[~2024-01-11] MED LIST changes: -RAMI1CAP24 PO; +RAMI5CAP60 PO; -ROSU40TA4 PO; +ROSU40TA63 PO
[2024-01-11 14:56] LABS: ALBUMIN 3.1 G/DL (3.2-5.2); ALKALINE PHOSPHATASE 77 U/L (46-116); ALT/SGPT < 9 U/L (7.0-40); AST/SGOT 15 U/L (<34); BILIRUBIN,TOTAL 0.2 MG/DL (0.3-1.2); BLOOD UREA NITROGEN 16 MG/DL (9-23); CARBON DIOXIDE LEVEL 33 MMOL/L (20-31); CHLORIDE LEVEL 98 MMOL/L (98-107); CREATININE FOR GFR 0.91 MG/DL (0.55-1.30); GLOMERULAR FILTRATION RATE > 60.0 (>39); GLUCOSE, FASTING 102 MG/DL (74-106); POTASSIUM SERUM 4.4 MMOL/L (3.5-5.1); SODIUM LEVEL 138 MMOL/L (136-145); TOTAL PROTEIN 6.3 G/DL (5.7-8.2)
== END ==
LOC: M PLALAB 12:55
PROVIDERS: ATTEND Family Medicine
DX: I48.91 Unspecified atrial fibrillation (principal)

== ENCOUNTER 2024-01-15 11:17 | Outpatient (CLI) | payer MEDICARE, MEDICAID ==
[2024-01-15 11:30] VITALS: BP 124/58; O2SAT 94
[2024-01-15] MEDS: ZOLEDRONIC ACID 5 MG in IV 1 EA IV ONE (11:36)
[2024-01-15 12:20] VITALS: BP 119/66; O2SAT 90
== END 2024-01-15 12:25 | disposition home or self-care (01) ==
LOC: M INFU 11:17
PROVIDERS: ATTEND Family Medicine
DX: S22.000A Wedge compression fracture of unspecified thoracic vertebra, initial encounter for closed fracture (principal); X58.XXXA Exposure to other specified factors, initial encounter; Y92.9 Unspecified place or not applicable; Y93.9 Activity, unspecified; Y99.9 Unspecified external cause status; Z88.0 Allergy status to penicillin; Z91.040 Latex allergy status
CPT/HCPCS: 96413; J3489

== ENCOUNTER 2024-02-21 12:10 | Observation (INO) | payer MEDICARE, MEDICAID ==
[~2024-02-21] VITALS: Ht 170.2 cm; Wt 80.0 kg
[~2024-02-21 12:10] MED LIST changes: -FLON1SPR; +FLON1SPR NARES
[2024-02-21 12:58] LABS: BASO % 0.4 % (0.0-1.0); EOS # 0.1 10^3/uL (0.0-0.5); EOS % 1.2 % (0.0-3.0); HEMATOCRIT 34.9 % (36.0-47.0); HEMOGLOBIN 10.1 g/dl (12.0-15.5); LYMPH # 0.8 10^3/uL (1.5-5.0); LYMPH % 8.9 % (24.0-44.0); MEAN CORPUSCULAR HEMOGLOBIN 22.7 pg (27.0-33.0); MEAN CORPUSCULAR HGB CONC 28.9 g/dl (32.0-36.5); MEAN CORPUSCULAR VOLUME 78.6 fl (80.0-96.0); MONO # 0.6 10^3/uL (0.0-0.8); MONO % 6.9 % (2.0-8.0); NEUTROPHILS # 7.5 10^3/uL (1.5-8.5); NEUTROPHILS % 82.2 % (36.0-66.0); PLATELET COUNT, AUTOMATED 297 10^3/uL (150-450); RED BLOOD COUNT 4.44 10^6/uL (4.00-5.40); WHITE BLOOD COUNT 9.1 10^3/uL (4.0-10.0)
[2024-02-21 13:31] LABS: BLOOD UREA NITROGEN 10 MG/DL (9-23); CALCIUM LEVEL 8.7 MG/DL (8.3-10.6); CARBON DIOXIDE LEVEL 36 MMOL/L (20-31); CHLORIDE LEVEL 103 MMOL/L (98-107); DIGOXIN LEVEL 1.2 NG/ML (0.8-2.0); GLOMERULAR FILTRATION RATE > 60.0 (>39); GLUCOSE, FASTING 88 MG/DL (74-106); POTASSIUM SERUM 3.8 MMOL/L (3.5-5.1); SODIUM LEVEL 142 MMOL/L (136-145)
[2024-02-21 13:34] LABS: THYROID STIMULATING HORMONE 2.441 uIU/ML (0.55-4.78)
[2024-02-21] MEDS: ACETAMINOPHEN TAB 650MG DOSE (2X325MG) PO ONE (13:45)
[2024-02-21 13:58] LABS: CPK CREATINE PHOSPHOKINASE 51 U/L (34-145)
[2024-02-21 14:11] VITALS: O2SAT 94
[2024-02-21] MEDS ORDERED: FLUTICASONE PROP 0.05% NASAL SPRAY 16 GM (FLONASE) NARES PRN (14:45)
[2024-02-21] MEDS ORDERED: QUEtiapine FUMARATE 25 MG TAB PO PRN (14:45)
[2024-02-21] MEDS ORDERED: guaiFENesin ER TABLET 600 MG TAB PO PRN (14:45)
[2024-02-21] MEDS ORDERED: ASPI81TA26 PO (15:05)
[2024-02-21] MEDS ORDERED: [UNRECOGNIZED DRUG - CODE] PO (15:05)
[2024-02-21] MEDS ORDERED: VITA200021 PO (15:05)
[2024-02-21] MEDS ORDERED: QUET1TAB17 PO (15:05)
[2024-02-21] MEDS ORDERED: PRED5TA PO (15:05)
[2024-02-21] MEDS ORDERED: EYESOL4 OU (15:17)
[2024-02-21] MEDS ORDERED: IPRA6SP NARES (15:17)
[2024-02-21] MEDS ORDERED: HOME MED LIST COMPLETE! XX SCH (15:20)
[2024-02-21 16:27] VITALS: BP 143/82; TEMP 97.3; O2SAT 99
[2024-02-21] MEDS: IPRATROPIUM 0.5MG/ALBUTEROL 2.5MG INH SOL UD 3ML (DUONEB) NEB PRN (16:40)
[2024-02-21] MEDS: FUROSEMIDE 20 MG TAB PO SCH (16:47)
[2024-02-21] MEDS: ASPIRIN 81MG ENTERIC TABLET PO SCH (16:47)
[2024-02-21] MEDS: LORATADINE 10 MG TAB PO SCH (16:47)
[2024-02-21] MEDS: DIGOXIN 0.125 MG TAB PO SCH (16:53)
[2024-02-21] MEDS: IPRATROPIUM 0.5MG/ALBUTEROL 2.5MG INH SOL UD 3ML (DUONEB) NEB SCH (19:27)
[2024-02-21 20:00] VITALS: BP 138/68; TEMP 97.5; O2SAT 92
[2024-02-21] MEDS: ROSUVASTATIN 10 MG TAB (CRESTOR) PO SCH (20:51)
[2024-02-21] MEDS: GABAPENTIN 300 MG CAP PO SCH (20:52)
[2024-02-21] MEDS: ESCITALOPRAM OXALATE 10 MG TAB (LEXAPRO) PO SCH (20:52)
[2024-02-21] MEDS: DONEPEZIL 5 MG TAB PO SCH (20:52)
[2024-02-21] MEDS: RIVAROXABAN 20MG TAB (XARELTO) PO SCH (20:52)
[2024-02-21] MEDS: MEMANTINE 5MG TABLET (NAMENDA) PO SCH (20:52)
[2024-02-21] MEDS: OMEPRAZOLE 20MG CAP PO SCH (20:52)
[2024-02-21] MEDS: predniSONE 5 MG TAB PO SCH (20:52)
[2024-02-21] MEDS: MONTELUKAST 10 MG TAB PO SCH (20:52)
[2024-02-21 20:53] VITALS: BP 105/78
[2024-02-21 21:49] VITALS: BP 138/62
[2024-02-21] MEDS: METOPROLOL SUCC (TopROL XL) 50MG **XL** TAB PO SCH (21:49)
[2024-02-21 21:50] VITALS: BP_SYST 112; BP_SYST 115; BP_SYST 138; BP_DIAS 59; BP_DIAS 62; BP_DIAS 77
[2024-02-22 03:30] VITALS: BP 120/66; TEMP 97.7; O2SAT 96
[2024-02-22 04:50] VITALS: BP_SYST 116; BP_SYST 120; BP_SYST 133; BP_DIAS 72; BP_DIAS 74; BP_DIAS 76
[2024-02-22 06:33] LABS: HEMATOCRIT 32.7 % (36.0-47.0); HEMOGLOBIN 9.7 g/dl (12.0-15.5); MEAN CORPUSCULAR HEMOGLOBIN 22.7 pg (27.0-33.0); MEAN CORPUSCULAR HGB CONC 29.7 g/dl (32.0-36.5); MEAN CORPUSCULAR VOLUME 76.4 fl (80.0-96.0); PLATELET COUNT, AUTOMATED 288 10^3/uL (150-450); RED BLOOD COUNT 4.28 10^6/uL (4.00-5.40); WHITE BLOOD COUNT 7.9 10^3/uL (4.0-10.0)
[2024-02-22 06:59] LABS: BLOOD UREA NITROGEN 12 MG/DL (9-23); CALCIUM LEVEL 9.1 MG/DL (8.3-10.6); CARBON DIOXIDE LEVEL 33 MMOL/L (20-31); CHLORIDE LEVEL 99 MMOL/L (98-107); CREATININE FOR GFR 0.83 MG/DL (0.55-1.30); GLOMERULAR FILTRATION RATE > 60.0 (>39); GLUCOSE, FASTING 135 MG/DL (74-106); POTASSIUM SERUM 3.5 MMOL/L (3.5-5.1); SODIUM LEVEL 137 MMOL/L (136-145)
[2024-02-22 08:55] VITALS: BP 103/61
[2024-02-22] MEDS: NICOTINE 21MG/24HR 1 EA TRANSDERMAL TD SCH (08:58)
[2024-02-22 12:00] VITALS: BP 122/68; TEMP 97.9; O2SAT 98
== END 2024-02-22 15:05 | disposition home or self-care (01) ==
LOC: M ED 12:10 → EDBD 12:10 → M ED INP 14:39 → M MSPAV 16:27
PROVIDERS: ADMIT Internal Medicine; ATTEND Internal Medicine
DX: R55 Syncope and collapse (principal); R29.6 Repeated falls; M25.551 Pain in right hip; M25.552 Pain in left hip; R06.2 Wheezing; F03.90 Unspecified dementia, unspecified severity, without behavioral disturbance, psychotic disturbance, mood disturbance, and anxiety; I48.91 Unspecified atrial fibrillation; K21.9 Gastro-esophageal reflux disease without esophagitis; E78.5 Hyperlipidemia, unspecified; J30.1 Allergic rhinitis due to pollen; I50.9 Heart failure, unspecified; J44.9 Chronic obstructive pulmonary disease, unspecified; G62.9 Polyneuropathy, unspecified; F17.210 Nicotine dependence, cigarettes, uncomplicated; Z79.899 Other long term (current) drug therapy; Z79.01 Long term (current) use of anticoagulants; Z79.82 Long term (current) use of aspirin; Z79.52 Long term (current) use of systemic steroids; Z88.0 Allergy status to penicillin; Z91.040 Latex allergy status; S00.83XA Contusion of other part of head, initial encounter; S50.12XA Contusion of left forearm, initial encounter; M54.2 Cervicalgia; W01.0XXA Fall on same level from slipping, tripping and stumbling without subsequent striking against object, initial encounter; Y92.098 Other place in other non-institutional residence as the place of occurrence of the external cause; Y93.01 Activity, walking, marching and hiking; Y99.8 Other external cause status; R91.1 Solitary pulmonary nodule; E87.6 Hypokalemia; R05.9 Cough, unspecified; F39 Unspecified mood [affective] disorder

== ENCOUNTER 2024-02-22 18:19 | Observation (INO) | payer MEDICARE, MEDICAID ==
[~2024-02-22] VITALS: Ht 175.3 cm; Wt 85.5 kg
[~2024-02-22 18:19] MED LIST changes: +ASPI81TA26 PO; +EYESOL4 OU; +IPRA6SP NARES; +PRED5TA PO; +QUET1TAB17 PO; +VITA200021 PO; +[UNRECOGNIZED DRUG - CODE] PO
[2024-02-22 19:21] LABS: BASO % 0.2 % (0.0-1.0); EOS # 0.1 10^3/uL (0.0-0.5); EOS % 0.7 % (0.0-3.0); HEMATOCRIT 32.3 % (36.0-47.0); HEMOGLOBIN 9.5 g/dl (12.0-15.5); LYMPH % 9.8 % (24.0-44.0); MEAN CORPUSCULAR HEMOGLOBIN 22.7 pg (27.0-33.0); MEAN CORPUSCULAR HGB CONC 29.4 g/dl (32.0-36.5); MEAN CORPUSCULAR VOLUME 77.1 fl (80.0-96.0); MONO % 9.3 % (2.0-8.0); NEUTROPHILS # 8.3 10^3/uL (1.5-8.5); NEUTROPHILS % 79.6 % (36.0-66.0); PLATELET COUNT, AUTOMATED 304 10^3/uL (150-450); RED BLOOD COUNT 4.19 10^6/uL (4.00-5.40); WHITE BLOOD COUNT 10.5 10^3/uL (4.0-10.0)
[2024-02-22 19:54] LABS: BLOOD UREA NITROGEN 15 MG/DL (9-23); CALCIUM LEVEL 9.6 MG/DL (8.3-10.6); CARBON DIOXIDE LEVEL 30 MMOL/L (20-31); CHLORIDE LEVEL 100 MMOL/L (98-107); CK-MB VALUE MASS 1.6 NG/ML (<3.6); CPK CREATINE PHOSPHOKINASE 162 U/L (34-145); CREATININE FOR GFR 0.91 MG/DL (0.55-1.30); GLOMERULAR FILTRATION RATE > 60.0 (>39); GLUCOSE, FASTING 120 MG/DL (74-106); MB/CK RELATIVE INDEX 0.98 (< OR =4); POTASSIUM SERUM 4.4 MMOL/L (3.5-5.1); SODIUM LEVEL 139 MMOL/L (136-145)
[2024-02-22 20:59] LABS: INR 1.21; PARTIAL THROMBOPLASTIN TIME 22.1 SECONDS (24.8-34.2)
[2024-02-22] MEDS ORDERED: ISOVUE-370 76% 100ML VIAL As Ordered ONE (21:25)
[2024-02-22] MEDS ORDERED: MOM 30ML SUSPENSION UDC PO PRN (23:50)
[2024-02-23 01:25] VITALS: BP 133/70; TEMP 97.2; O2SAT 93
[2024-02-23] MEDS: guaiFENesin SYRUP 200MG 10ML UDC PO PRN (01:43)
[2024-02-23] MEDS ORDERED: HOME MED LIST COMPLETE! XX SCH (02:20)
[2024-02-23] MEDS ORDERED: QUEtiapine FUMARATE 25 MG TAB PO PRN (02:45)
[2024-02-23 03:20] VITALS: BP 105/79; TEMP 97.7; O2SAT 98
[2024-02-23 05:56] LABS: HEMATOCRIT 30.8 % (36.0-47.0); MEAN CORPUSCULAR HEMOGLOBIN 22.5 pg (27.0-33.0); MEAN CORPUSCULAR HGB CONC 29.2 g/dl (32.0-36.5); PLATELET COUNT, AUTOMATED 290 10^3/uL (150-450); WHITE BLOOD COUNT 9.2 10^3/uL (4.0-10.0)
[2024-02-23 06:43] LABS: BLOOD UREA NITROGEN 12 MG/DL (9-23); CARBON DIOXIDE LEVEL 34 MMOL/L (20-31); CHLORIDE LEVEL 102 MMOL/L (98-107); CREATININE FOR GFR 0.87 MG/DL (0.55-1.30); GLOMERULAR FILTRATION RATE > 60.0 (>39); GLUCOSE, FASTING 83 MG/DL (74-106); POTASSIUM SERUM 2.9 MMOL/L (3.5-5.1); SODIUM LEVEL 142 MMOL/L (136-145)
[2024-02-23] MEDS: KCL 10MEQ/100ML SWI (KRUN) 10 MEQ in IV 1 EA IV SCH (07:00)
[2024-02-23] MEDS: TIOTROPIUM INHALER/CAPSULE (SPIRIVA) INH SCH (07:38)
[2024-02-23 08:00] VITALS: BP 151/90; TEMP 97.7; O2SAT 93
[2024-02-23] MEDS: GABAPENTIN 300 MG CAP PO SCH (08:25)
[2024-02-23] MEDS: OMEPRAZOLE 20MG CAP PO SCH (08:25)
[2024-02-23] MEDS: POTASSIUM CHLORIDE 10% LIQ 20MEQ/15ML UDC PO ONE (08:25)
[2024-02-23] MEDS: METOPROLOL SUCC (TopROL XL) 50MG **XL** TAB PO SCH (08:26)
[2024-02-23] MEDS: DOCUSATE SODIUM 100MG CAPSULE PO SCH (08:26)
[2024-02-23] MEDS: DONEPEZIL 5 MG TAB PO SCH (08:26)
[2024-02-23] MEDS: MEMANTINE 5MG TABLET (NAMENDA) PO SCH (08:26)
[2024-02-23] MEDS: LORATADINE 10 MG TAB PO SCH (08:26)
[2024-02-23] MEDS: DIGOXIN 0.125 MG TAB PO SCH (08:27)
[2024-02-23] MEDS: FUROSEMIDE 20 MG TAB PO SCH (08:27)
[2024-02-23] MEDS: IPRATROPIUM 0.06% NASAL SPRAY 15 ML (ATROVENT) SCH (11:15)
[2024-02-23 12:00] VITALS: BP 120/61; TEMP 97.9; O2SAT 95
[2024-02-23 16:04] LABS: DIGOXIN LEVEL 1.6 NG/ML (0.8-2.0)
[2024-02-23 16:07] LABS: FREE T4 1.14 NG/DL (0.89-1.76); THYROID STIMULATING HORMONE 2.191 uIU/ML (0.55-4.78)
[2024-02-23] MEDS: RIVAROXABAN 20MG TAB (XARELTO) PO SCH (17:44)
[2024-02-23 19:50] VITALS: BP 132/94; TEMP 98.2; O2SAT 94
[2024-02-23] MEDS: MONTELUKAST 10 MG TAB PO SCH (20:31)
[2024-02-23] MEDS: ROSUVASTATIN 10 MG TAB (CRESTOR) PO SCH (20:32)
[2024-02-23] MEDS: ESCITALOPRAM OXALATE 10 MG TAB (LEXAPRO) PO SCH (20:32)
[2024-02-23] MEDS: predniSONE 5 MG TAB PO SCH (20:32)
[2024-02-24 00:21] VITALS: BP 112/64; TEMP 97.9; O2SAT 94
[2024-02-24] MEDS: IPRATROPIUM 0.5MG/ALBUTEROL 2.5MG INH SOL UD 3ML (DUONEB) NEB PRN (01:59)
[2024-02-24 04:00] VITALS: BP 109/62; TEMP 97.9; O2SAT 94
[2024-02-24 05:55] LABS: BASO % 0.3 % (0.0-1.0); EOS # 0.1 10^3/uL (0.0-0.5); EOS % 1.9 % (0.0-3.0); HEMATOCRIT 31.9 % (36.0-47.0); HEMOGLOBIN 9.2 g/dl (12.0-15.5); LYMPH # 0.8 10^3/uL (1.5-5.0); MEAN CORPUSCULAR HEMOGLOBIN 23.4 pg (27.0-33.0); MEAN CORPUSCULAR HGB CONC 28.8 g/dl (32.0-36.5); MONO # 0.6 10^3/uL (0.0-0.8); MONO % 8.4 % (2.0-8.0); NEUTROPHILS # 5.8 10^3/uL (1.5-8.5); NEUTROPHILS % 78.1 % (36.0-66.0); PLATELET COUNT, AUTOMATED 277 10^3/uL (150-450); RED BLOOD COUNT 3.94 10^6/uL (4.00-5.40); WHITE BLOOD COUNT 7.5 10^3/uL (4.0-10.0)
[2024-02-24 06:30] LABS: BLOOD UREA NITROGEN 9 MG/DL (9-23); CALCIUM LEVEL 8.9 MG/DL (8.3-10.6); CARBON DIOXIDE LEVEL 37 MMOL/L (20-31); CHLORIDE LEVEL 103 MMOL/L (98-107); CREATININE FOR GFR 0.85 MG/DL (0.55-1.30); GLOMERULAR FILTRATION RATE > 60.0 (>39); GLUCOSE, FASTING 104 MG/DL (74-106); POTASSIUM SERUM 3.6 MMOL/L (3.5-5.1); SODIUM LEVEL 141 MMOL/L (136-145)
[2024-02-24] MEDS: POTASSIUM CHLORIDE 10MEQ SR TABLET PO SCH (08:49)
[2024-02-24] MEDS ORDERED: POTASSIUM CHLORIDE 10MEQ SR TABLET PO SCH (09:00)
[2024-02-24 12:00] VITALS: BP 124/79; TEMP 97.2; O2SAT 93
[2024-02-24 19:50] VITALS: BP 114/90; TEMP 97.9; O2SAT 91; O2SAT 92
[2024-02-25] VITALS (10 sets, daily range): BP systolic 117–125; BP diastolic 64–90; TEMP 97.5–97.9; O2SAT 83–94
[2024-02-25 07:48] LABS: BLOOD UREA NITROGEN 8 MG/DL (9-23); CALCIUM LEVEL 8.8 MG/DL (8.3-10.6); CARBON DIOXIDE LEVEL 36 MMOL/L (20-31); CHLORIDE LEVEL 106 MMOL/L (98-107); CREATININE FOR GFR 0.84 MG/DL (0.55-1.30); GLOMERULAR FILTRATION RATE > 60.0 (>39); GLUCOSE, FASTING 113 MG/DL (74-106); MAGNESIUM LEVEL 1.8 MG/DL (1.8-2.4); POTASSIUM SERUM 4.2 MMOL/L (3.5-5.1); SODIUM LEVEL 142 MMOL/L (136-145)
[2024-02-26 04:10] VITALS: BP 118/93; TEMP 97.7; O2SAT 92
[2024-02-26 09:24] VITALS: BP 118/93
== END 2024-02-26 11:31 ==
LOC: M ED 18:19 → M ED INP 18:20 → M MSPAV 02-23 00:58
PROVIDERS: ADMIT Family Medicine; ATTEND Hospitalist
DX: R29.6 Repeated falls (principal); S00.83XA Contusion of other part of head, initial encounter; S50.12XA Contusion of left forearm, initial encounter; M54.2 Cervicalgia; W01.0XXA Fall on same level from slipping, tripping and stumbling without subsequent striking against object, initial encounter; Y92.098 Other place in other non-institutional residence as the place of occurrence of the external cause; Y93.01 Activity, walking, marching and hiking; Y99.8 Other external cause status; R91.1 Solitary pulmonary nodule; E87.6 Hypokalemia; F03.90 Unspecified dementia, unspecified severity, without behavioral disturbance, psychotic disturbance, mood disturbance, and anxiety; I48.91 Unspecified atrial fibrillation; K21.9 Gastro-esophageal reflux disease without esophagitis; E78.5 Hyperlipidemia, unspecified; I50.9 Heart failure, unspecified; J30.1 Allergic rhinitis due to pollen; J44.9 Chronic obstructive pulmonary disease, unspecified; R05.9 Cough, unspecified; G62.9 Polyneuropathy, unspecified; F39 Unspecified mood [affective] disorder; Z79.899 Other long term (current) drug therapy; Z79.01 Long term (current) use of anticoagulants; Z79.52 Long term (current) use of systemic steroids; Z88.0 Allergy status to penicillin; Z91.040 Latex allergy status
CPT/HCPCS: 36415; 70450; 70486; 71045; 71260; 72125; 73060; 73090; 73502; 73552; 73590; 74177; 80047; 80048; 80162; 82550; 82553; 84443; 84484; 85025; 85027; 85610; 85730; 87426; 87486; 87581; 87633; 87798; 93005; 93041; 94640; 94760; 96365; 96366; 97116; 97161; 97165; 97535; 99284; 99285; G0378; J7512; Q9967

== ENCOUNTER → 2024-03-04 | Outpatient (REF) | payer MEDICARE, MEDICAID ==
[2024-03-04 07:33] LABS: HEMATOCRIT 32.1 % (36.0-47.0); HEMOGLOBIN 9.6 g/dl (12.0-15.5); MEAN CORPUSCULAR HEMOGLOBIN 23.2 pg (27.0-33.0); MEAN CORPUSCULAR HGB CONC 29.9 g/dl (32.0-36.5); MEAN CORPUSCULAR VOLUME 77.5 fl (80.0-96.0); PLATELET COUNT, AUTOMATED 288 10^3/uL (150-450); RED BLOOD COUNT 4.14 10^6/uL (4.00-5.40); WHITE BLOOD COUNT 8.9 10^3/uL (4.0-10.0)
[2024-03-04 08:04] LABS: BLOOD UREA NITROGEN 14 MG/DL (9-23); CALCIUM LEVEL 9.4 MG/DL (8.3-10.6); CARBON DIOXIDE LEVEL 32 MMOL/L (20-31); CHLORIDE LEVEL 104 MMOL/L (98-107); CREATININE FOR GFR 0.82 MG/DL (0.55-1.30); GLOMERULAR FILTRATION RATE > 60.0 (>39); GLUCOSE, FASTING 92 MG/DL (74-106); IRON (FE) 30 UG/DL (50-170); PERCENT SATURATION 7.2 % (13.2-45.0); POTASSIUM SERUM 3.4 MMOL/L (3.5-5.1); SODIUM LEVEL 142 MMOL/L (136-145); TOTAL IRON BINDING CAPACITY 418 UG/DL (250-425)
== END ==
LOC: SKLAB2 07:00
PROVIDERS: ATTEND Internal Medicine
DX: I10 Essential (primary) hypertension (principal)

== ENCOUNTER → 2024-04-14 | Outpatient (REF) | payer MEDICARE, MEDICAID ==
[2024-04-14 11:22] LABS: HEMATOCRIT 39.4 % (36.0-47.0); HEMOGLOBIN 11.8 g/dl (12.0-15.5); MEAN CORPUSCULAR HEMOGLOBIN 25.1 pg (27.0-33.0); MEAN CORPUSCULAR HGB CONC 29.9 g/dl (32.0-36.5); MEAN CORPUSCULAR VOLUME 83.8 fl (80.0-96.0); PLATELET COUNT, AUTOMATED 313 10^3/uL (150-450); WHITE BLOOD COUNT 7.9 10^3/uL (4.0-10.0)
[2024-04-14 11:58] LABS: ALBUMIN 2.9 G/DL (3.2-5.2); ALKALINE PHOSPHATASE 78 U/L (46-116); ALT/SGPT 11 U/L (7.0-40); AST/SGOT 13 U/L (<34); BILIRUBIN,TOTAL 0.3 MG/DL (0.3-1.2); BLOOD UREA NITROGEN 17 MG/DL (9-23); CALCIUM LEVEL 9.2 MG/DL (8.3-10.6); CARBON DIOXIDE LEVEL 33 MMOL/L (20-31); CHLORIDE LEVEL 105 MMOL/L (98-107); CHOLESTEROL LEVEL 150 MG/DL (<200); CHOLESTEROL RISK RATIO 3.34 (<5); CREATININE FOR GFR 0.93 MG/DL (0.55-1.30); GLOMERULAR FILTRATION RATE > 60.0 (>39); GLUCOSE, FASTING 158 MG/DL (74-106); HDL CHOLESTEROL 44.9 MG/DL (>40); LDL CHOLESTEROL 77.1 MG/DL (<100); NON-HDL-C 105.1 MG/DL; POTASSIUM SERUM 4.2 MMOL/L (3.5-5.1); SODIUM LEVEL 141 MMOL/L (136-145); TOTAL PROTEIN 6.1 G/DL (5.7-8.2); TRIGLYCERIDES LEVEL 140 MG/DL (<150)
[2024-04-14 12:00] LABS: DIGOXIN LEVEL 1.8 NG/ML (0.8-2.0)
== END ==
LOC: SKLAB2 07:00
PROVIDERS: ATTEND Internal Medicine
DX: E78.5 Hyperlipidemia, unspecified (principal); E55.9 Vitamin D deficiency, unspecified; Z79.899 Other long term (current) drug therapy

== ENCOUNTER → 2024-05-25 | Outpatient (REF) ==
[~2024-05-25] MED LIST changes: -ROSU40TA63 PO; +ROSU40TA81 PO
[2024-05-25 13:52] LABS: BLOOD UREA NITROGEN 13 MG/DL (9-23); CALCIUM LEVEL 9.7 MG/DL (8.3-10.6); CARBON DIOXIDE LEVEL 34 MMOL/L (20-31); CHLORIDE LEVEL 105 MMOL/L (98-107); CREATININE FOR GFR 0.72 MG/DL (0.55-1.30); GLOMERULAR FILTRATION RATE > 60.0 (>39); GLUCOSE, FASTING 73 MG/DL (74-106); POTASSIUM SERUM 4.6 MMOL/L (3.5-5.1); SODIUM LEVEL 141 MMOL/L (136-145)
== END ==
LOC: SKLAB7 07:38
PROVIDERS: ATTEND Internal Medicine
DX: I10 Essential (primary) hypertension (principal)

== ENCOUNTER → 2024-06-13 | Outpatient (REF) | payer MEDICARE, MEDICAID ==
[~2024-06-13] MED LIST changes: +GABA-1172 PO; -GABA-282 PO
[2024-06-13 18:02] LABS: BASO # 0.1 10^3/uL (0.0-0.2); BASO % 0.5 % (0.0-1.0); EOS # 0.1 10^3/uL (0.0-0.5); EOS % 1.3 % (0.0-3.0); HEMATOCRIT 40.5 % (36.0-47.0); HEMOGLOBIN 12.9 g/dl (12.0-15.5); LYMPH # 1.4 10^3/uL (1.5-5.0); LYMPH % 14.5 % (24.0-44.0); MEAN CORPUSCULAR HEMOGLOBIN 27.2 pg (27.0-33.0); MEAN CORPUSCULAR HGB CONC 31.9 g/dl (32.0-36.5); MEAN CORPUSCULAR VOLUME 85.4 fl (80.0-96.0); MONO # 0.8 10^3/uL (0.0-0.8); MONO % 8.6 % (2.0-8.0); NEUTROPHILS # 7.1 10^3/uL (1.5-8.5); NEUTROPHILS % 74.8 % (36.0-66.0); PLATELET COUNT, AUTOMATED 276 10^3/uL (150-450); RED BLOOD COUNT 4.74 10^6/uL (4.00-5.40); WHITE BLOOD COUNT 9.5 10^3/uL (4.0-10.0)
[2024-06-13 18:30] LABS: ALBUMIN 3.3 G/DL (3.2-5.2); ALKALINE PHOSPHATASE 79 U/L (46-116); ALT/SGPT 10 U/L (7.0-40); AST/SGOT < 8 U/L (<34); BILIRUBIN,TOTAL 0.4 MG/DL (0.3-1.2); BLOOD UREA NITROGEN 17 MG/DL (9-23); CALCIUM LEVEL 10.3 MG/DL (8.3-10.6); CARBON DIOXIDE LEVEL 29 MMOL/L (20-31); CHLORIDE LEVEL 103 MMOL/L (98-107); CREATININE FOR GFR 0.84 MG/DL (0.55-1.30); GLOMERULAR FILTRATION RATE > 60.0 (>39); GLUCOSE, FASTING 150 MG/DL (74-106); POTASSIUM SERUM 4.3 MMOL/L (3.5-5.1); SODIUM LEVEL 139 MMOL/L (136-145); TOTAL PROTEIN 6.6 G/DL (5.7-8.2)
== END ==
LOC: SKLAB7 07:00
PROVIDERS: ATTEND Nurse Practitioner Family
DX: R41.82 Altered mental status, unspecified (principal)

== ENCOUNTER → 2024-06-14 | Outpatient (REF) | payer MEDICARE, MEDICAID ==
[2024-06-14 11:34] LABS: BASO % 0.6 % (0.0-1.0); EOS # 0.1 10^3/uL (0.0-0.5); EOS % 1.1 % (0.0-3.0); HEMATOCRIT 40.3 % (36.0-47.0); HEMOGLOBIN 12.7 g/dl (12.0-15.5); LYMPH # 1.2 10^3/uL (1.5-5.0); MEAN CORPUSCULAR HEMOGLOBIN 27.4 pg (27.0-33.0); MEAN CORPUSCULAR HGB CONC 31.5 g/dl (32.0-36.5); MONO # 0.6 10^3/uL (0.0-0.8); MONO % 8.1 % (2.0-8.0); NEUTROPHILS # 5.3 10^3/uL (1.5-8.5); NEUTROPHILS % 74.1 % (36.0-66.0); PLATELET COUNT, AUTOMATED 266 10^3/uL (150-450); RED BLOOD COUNT 4.63 10^6/uL (4.00-5.40); WHITE BLOOD COUNT 7.2 10^3/uL (4.0-10.0)
[2024-06-14 11:59] LABS: ALBUMIN 3.3 G/DL (3.2-5.2); ALKALINE PHOSPHATASE 71 U/L (46-116); ALT/SGPT 9 U/L (7.0-40); AST/SGOT < 8 U/L (<34); BILIRUBIN,TOTAL 0.4 MG/DL (0.3-1.2); BLOOD UREA NITROGEN 12 MG/DL (9-23); CALCIUM LEVEL 9.8 MG/DL (8.3-10.6); CARBON DIOXIDE LEVEL 32 MMOL/L (20-31); CHLORIDE LEVEL 104 MMOL/L (98-107); CREATININE FOR GFR 0.75 MG/DL (0.55-1.30); GLOMERULAR FILTRATION RATE > 60.0 (>39); GLUCOSE, FASTING 104 MG/DL (74-106); SODIUM LEVEL 141 MMOL/L (136-145); TOTAL PROTEIN 6.4 G/DL (5.7-8.2)
== END ==
LOC: SKLAB7 07:06
PROVIDERS: ATTEND Internal Medicine
DX: R41.82 Altered mental status, unspecified (principal)

== ENCOUNTER → 2024-06-17 | Outpatient (REF) | payer MEDICARE, MEDICAID ==
[2024-06-17 16:37] LABS: BASO % 0.3 % (0.0-1.0); EOS # 0.1 10^3/uL (0.0-0.5); EOS % 0.9 % (0.0-3.0); HEMATOCRIT 42.9 % (36.0-47.0); HEMOGLOBIN 13.6 g/dl (12.0-15.5); LYMPH # 0.5 10^3/uL (1.5-5.0); LYMPH % 5.3 % (24.0-44.0); MEAN CORPUSCULAR HEMOGLOBIN 27.3 pg (27.0-33.0); MEAN CORPUSCULAR HGB CONC 31.7 g/dl (32.0-36.5); MEAN CORPUSCULAR VOLUME 86.1 fl (80.0-96.0); MONO # 0.8 10^3/uL (0.0-0.8); NEUTROPHILS # 8.3 10^3/uL (1.5-8.5); NEUTROPHILS % 85.2 % (36.0-66.0); PLATELET COUNT, AUTOMATED 271 10^3/uL (150-450); RED BLOOD COUNT 4.98 10^6/uL (4.00-5.40); WHITE BLOOD COUNT 9.7 10^3/uL (4.0-10.0)
[2024-06-17 17:11] LABS: ALBUMIN 3.6 G/DL (3.2-5.2); ALKALINE PHOSPHATASE 80 U/L (46-116); ALT/SGPT 11 U/L (7.0-40); AST/SGOT 9 U/L (<34); BILIRUBIN,TOTAL 0.5 MG/DL (0.3-1.2); BLOOD UREA NITROGEN 21 MG/DL (9-23); CALCIUM LEVEL 10.4 MG/DL (8.3-10.6); CARBON DIOXIDE LEVEL 27 MMOL/L (20-31); CHLORIDE LEVEL 107 MMOL/L (98-107); CREATININE FOR GFR 0.89 MG/DL (0.55-1.30); GLOMERULAR FILTRATION RATE > 60.0 (>39); GLUCOSE, FASTING 125 MG/DL (74-106); SODIUM LEVEL 139 MMOL/L (136-145); TOTAL PROTEIN 7.1 G/DL (5.7-8.2)
== END ==
LOC: SKLAB7 15:27
PROVIDERS: ATTEND Internal Medicine
DX: I48.91 Unspecified atrial fibrillation (principal); R41.82 Altered mental status, unspecified; R06.2 Wheezing

== ENCOUNTER → 2024-06-19 | Outpatient (REF) | payer MEDICARE, MEDICAID ==
[2024-06-19 08:49] LABS: APPEARANCE, URINE HAZY (CLEAR); BACTERIA, URINE AUTO 1+ (NEGATIVE); BILIRUBIN, URINE AUTO NEGATIVE (NEGATIVE); BLOOD, URINE BLOOD NEGATIVE (NEGATIVE); COLOR, URINE YELLOW (YELLOW); GLUCOSE, URINE (UA) AUTO 2+ mg/dL (NEGATIVE); KETONE, URINE AUTO NEGATIVE (NEGATIVE); LEUKOCYTE ESTERASE, URINE AUTO NEGATIVE (NEGATIVE); MUCUS, URINE SMALL (NEGATIVE); NITRITE, URINE AUTO POSITIVE (NEGATIVE); PROTEIN, URINE AUTO NEGATIVE (NEGATIVE); RBC, URINE AUTO 0 /HPF (0-3); SPECIFIC GRAVITY URINE AUTO 1.019 (1.002-1.035); SQUAMOUS EPITHELIAL CELL UR AU 0 /HPF (0-6); UROBILINOGEN, URINE AUTO 0.2 mg/dL (0.0-2.0); WBC, URINE AUTO 1 /HPF (0-3)
== END ==
LOC: SKLAB7 08:17
PROVIDERS: ATTEND Internal Medicine
DX: R41.82 Altered mental status, unspecified (principal)

== ENCOUNTER → 2024-06-19 | Outpatient (REF) | payer MEDICARE | LOC: M LAB REF 08:40 → SKLAB7 08:40 | PROVIDERS: ATTEND Internal Medicine | DX: R41.82 Altered mental status, unspecified (principal) ==

== ENCOUNTER 2024-07-03 12:11 | Emergency (ER) | payer MEDICARE ==
[~2024-07-03] VITALS: Ht 170.2 cm; Wt 76.2 kg
[2024-07-03] MEDS ORDERED: FERR324T21 PO (12:24)
[2024-07-03] MEDS ORDERED: ELIQ5TAB PO (12:24)
[2024-07-03] MEDS ORDERED: ISOVUE-370 76% 100ML VIAL As Ordered ONE (12:39)
[2024-07-03 12:42] LABS: BASO % 0.4 % (0.0-1.0); EOS # 0.1 10^3/uL (0.0-0.5); EOS % 0.7 % (0.0-3.0); HEMATOCRIT 42.4 % (36.0-47.0); HEMOGLOBIN 13.6 g/dl (12.0-15.5); LYMPH % 8.9 % (24.0-44.0); MEAN CORPUSCULAR HEMOGLOBIN 28.1 pg (27.0-33.0); MEAN CORPUSCULAR HGB CONC 32.1 g/dl (32.0-36.5); MEAN CORPUSCULAR VOLUME 87.6 fl (80.0-96.0); MONO # 0.9 10^3/uL (0.0-0.8); MONO % 7.9 % (2.0-8.0); NEUTROPHILS # 9.1 10^3/uL (1.5-8.5); NEUTROPHILS % 81.7 % (36.0-66.0); PLATELET COUNT, AUTOMATED 284 10^3/uL (150-450); RED BLOOD COUNT 4.84 10^6/uL (4.00-5.40); WHITE BLOOD COUNT 11.2 10^3/uL (4.0-10.0)
[2024-07-03 12:55] LABS: INR 1.17; PARTIAL THROMBOPLASTIN TIME 25.8 SECONDS (24.8-34.2); PROTHROMBIN TIME 15.3 SECONDS (12.5-14.5)
[2024-07-03 13:08] LABS: CK-MB VALUE MASS < 1.0 NG/ML (<3.6)
[2024-07-03 13:11] LABS: ALBUMIN 3.3 G/DL (3.2-5.2); ALKALINE PHOSPHATASE 68 U/L (35-104); ALT/SGPT 11 U/L (7.0-40); AST/SGOT 12 U/L (<34); BILIRUBIN,DIRECT < 0.1 MG/DL (<0.4); BILIRUBIN,TOTAL 0.4 MG/DL (0.3-1.2); TOTAL PROTEIN 6.7 G/DL (5.7-8.2)
[2024-07-03] MEDS ORDERED: METR60GE3 TOP (13:14)
[2024-07-03] MEDS ORDERED: MEMA10TA PO (13:14)
[2024-07-03] MEDS ORDERED: MELA3TAB49 PO (13:14)
[2024-07-03] MEDS ORDERED: OMEP-312 PO (13:14)
[2024-07-03 13:18] LABS: CPK CREATINE PHOSPHOKINASE 43 U/L (34-145); MB/CK RELATIVE INDEX 2.32 (< OR =4)
[2024-07-03] MEDS ORDERED: TIOT18INH INH (13:19)
[2024-07-03] MEDS ORDERED: PRES10CA2 PO (13:19)
[2024-07-03] MEDS ORDERED: TYLE650T38 PO ×2 (13:19)
[2024-07-03] MEDS ORDERED: OXYC1TAB23 PO (13:19)
[2024-07-03] MEDS ORDERED: PRED5TA PO (13:19)
[2024-07-03] MEDS ORDERED: SPIR-10 PO (13:19)
[2024-07-03] MEDS: PERCOCET 5MG/325MG TAB PO ONE (13:45)
[2024-07-03 14:07] LABS: CK-MB VALUE MASS < 1.0 NG/ML (<3.6); CPK CREATINE PHOSPHOKINASE 45 U/L (34-145); MB/CK RELATIVE INDEX 2.22 (< OR =4)
[2024-07-03 14:26] VITALS: O2SAT 94
[2024-07-03 14:30] VITALS: BP 113/57; TEMP 97.3
== END 2024-07-03 14:50 | disposition home or self-care (01) ==
LOC: M ED 12:11 → EDBD 12:11 → M ED 14:50
DX: S70.01XA Contusion of right hip, initial encounter (principal); S80.01XA Contusion of right knee, initial encounter; S20.211A Contusion of right front wall of thorax, initial encounter; Y92.019 Unspecified place in single-family (private) house as the place of occurrence of the external cause; Y93.9 Activity, unspecified; Y99.9 Unspecified external cause status; W19.XXXA Unspecified fall, initial encounter; I48.91 Unspecified atrial fibrillation; I10 Essential (primary) hypertension; J45.909 Unspecified asthma, uncomplicated; J44.9 Chronic obstructive pulmonary disease, unspecified; E78.5 Hyperlipidemia, unspecified; E11.9 Type 2 diabetes mellitus without complications; F03.90 Unspecified dementia, unspecified severity, without behavioral disturbance, psychotic disturbance, mood disturbance, and anxiety; Z88.0 Allergy status to penicillin; Z91.040 Latex allergy status; Z79.1 Long term (current) use of non-steroidal anti-inflammatories (NSAID); Z79.51 Long term (current) use of inhaled steroids; Z79.01 Long term (current) use of anticoagulants; Z79.52 Long term (current) use of systemic steroids; Z79.899 Other long term (current) drug therapy
CPT/HCPCS: 36415; 70450; 71045; 71260; 72125; 73502; 73564; 74177; 80047; 80076; 82550; 82553; 84484; 85025; 85610; 85730; 86850; 86900; 86901; 93005; 93041; 94760; 99285; Q9967

== ENCOUNTER → 2024-08-30 | Outpatient (CLI) | payer MEDICARE ==
[~2024-08-30] MED LIST changes: +ELIQ5TAB PO; +FERR324T21 PO; -LEVO750T14 PO; +LEVO75TAB PO; +MELA3TAB49 PO; +MEMA10TA PO; +METR60GE3 TOP; +OMEP-312 PO; +OXYC1TAB23 PO; +PRES10CA2 PO; +SPIR-10 PO; +TIOT18INH INH; +TYLE650T38 PO
== END ==
LOC: M PLARAD 08:50
PROVIDERS: ATTEND Nurse Practitioner Family
DX: R91.1 Solitary pulmonary nodule (principal)
CPT/HCPCS: 78815; A9552

== ENCOUNTER → 2024-10-20 | Outpatient (REF) | payer MEDICARE ==
[~2024-10-20] MED LIST changes: -ADV500INH INH; +ADVA1AER10 INH
[2024-10-20 09:20] LABS: HEMOGLOBIN 12.8 g/dl (12.0-15.5); MEAN CORPUSCULAR HEMOGLOBIN 29.6 pg (27.0-33.0); MEAN CORPUSCULAR VOLUME 92.6 fl (80.0-96.0); PLATELET COUNT, AUTOMATED 241 10^3/uL (150-450); RED BLOOD COUNT 4.32 10^6/uL (4.00-5.40)
[2024-10-20 09:46] LABS: ALBUMIN 3.1 G/DL (3.2-5.2); ALKALINE PHOSPHATASE 72 U/L (35-104); ALT/SGPT 16 U/L (7.0-40); AST/SGOT 10 U/L (<34); BILIRUBIN,TOTAL 0.4 MG/DL (0.3-1.2); BLOOD UREA NITROGEN 18 MG/DL (9-23); CALCIUM LEVEL 9.3 MG/DL (8.3-10.6); CARBON DIOXIDE LEVEL 34 MMOL/L (20-31); CHLORIDE LEVEL 105 MMOL/L (98-107); CREATININE FOR GFR 0.74 MG/DL (0.55-1.30); DIGOXIN LEVEL 0.6 NG/ML (0.8-2.0); GLOMERULAR FILTRATION RATE > 60.0 (>32); GLUCOSE, FASTING 112 MG/DL (74-106); SODIUM LEVEL 146 MMOL/L (136-145); TOTAL PROTEIN 6.2 G/DL (5.7-8.2)
== END ==
LOC: SKLAB7 07:00
PROVIDERS: ATTEND Internal Medicine
DX: J44.9 Chronic obstructive pulmonary disease, unspecified (principal); I10 Essential (primary) hypertension; Z79.899 Other long term (current) drug therapy

== ENCOUNTER → 2024-11-18 | Outpatient (CLI) | payer MEDICARE | LOC: M ONCR 07:51 | PROVIDERS: ATTEND General Practice | DX: R91.1 Solitary pulmonary nodule (principal); F03.90 Unspecified dementia, unspecified severity, without behavioral disturbance, psychotic disturbance, mood disturbance, and anxiety; Z87.891 Personal history of nicotine dependence; Z79.01 Long term (current) use of anticoagulants; Z79.52 Long term (current) use of systemic steroids; Z79.899 Other long term (current) drug therapy ==

== ENCOUNTER → 2024-12-08 | Outpatient (REF) | payer MEDICARE ==
[2024-12-08 12:49] LABS: BLOOD UREA NITROGEN 22 MG/DL (9-23); CALCIUM LEVEL 9.3 MG/DL (8.3-10.6); CARBON DIOXIDE LEVEL 27 MMOL/L (20-31); CHLORIDE LEVEL 104 MMOL/L (98-107); CREATININE FOR GFR 0.61 MG/DL (0.55-1.30); GLOMERULAR FILTRATION RATE > 90.0 (>32); GLUCOSE, FASTING 142 MG/DL (74-106); POTASSIUM SERUM 4.2 MMOL/L (3.5-5.1); SODIUM LEVEL 143 MMOL/L (136-145)
[2024-12-08 12:51] LABS: HEMATOCRIT 47.2 % (36.0-47.0); HEMOGLOBIN 15.1 g/dl (12.0-15.5); MEAN CORPUSCULAR HEMOGLOBIN 29.9 pg (27.0-33.0); MEAN CORPUSCULAR VOLUME 93.5 fl (80.0-96.0); PLATELET COUNT, AUTOMATED 257 10^3/uL (150-450); RED BLOOD COUNT 5.05 10^6/uL (4.00-5.40); WHITE BLOOD COUNT 13.4 10^3/uL (4.0-10.0)
[2024-12-08 13:51] LABS: ATYPICAL LYMPH 4 % (0-5); BASOPHILS 2 % (0-1); LYMPHOCYTES 1 % (16-44); METAMYELOCYTES 3 % (0-0); MONOCYTES 6 % (0-5); MYELOCYTES 1 % (0-0); NEUTROPHILS 72 % (28-66)
[2024-12-08 13:52] LABS: PLATELET ESTIMATE NORMAL (NORMAL)
== END ==
LOC: SKLAB7 11:45
PROVIDERS: ATTEND Internal Medicine
DX: K92.89 Other specified diseases of the digestive system (principal)

== ENCOUNTER → 2024-12-16 | Outpatient (REF) | payer MEDICARE ==
[2024-12-16 11:32] LABS: BASO % 0.4 % (0.0-1.0); EOS # 0.1 10^3/uL (0.0-0.5); EOS % 1.5 % (0.0-3.0); HEMATOCRIT 40.8 % (36.0-47.0); HEMOGLOBIN 13.3 g/dl (12.0-15.5); LYMPH # 1.4 10^3/uL (1.5-5.0); LYMPH % 16.5 % (24.0-44.0); MEAN CORPUSCULAR HEMOGLOBIN 29.8 pg (27.0-33.0); MEAN CORPUSCULAR HGB CONC 32.6 g/dl (32.0-36.5); MEAN CORPUSCULAR VOLUME 91.3 fl (80.0-96.0); MONO # 0.7 10^3/uL (0.0-0.8); MONO % 8.8 % (2.0-8.0); NEUTROPHILS % 72.3 % (36.0-66.0); PLATELET COUNT, AUTOMATED 278 10^3/uL (150-450); RED BLOOD COUNT 4.47 10^6/uL (4.00-5.40); WHITE BLOOD COUNT 8.3 10^3/uL (4.0-10.0)
[2024-12-16 11:49] LABS: ALBUMIN 3.1 G/DL (3.2-5.2); BILIRUBIN,TOTAL 0.5 MG/DL (0.3-1.2); CALCIUM LEVEL 10.3 MG/DL (8.3-10.6); CREATININE FOR GFR 0.8 MG/DL (0.55-1.30); GLOMERULAR FILTRATION RATE 74.4 (>32); POTASSIUM SERUM 4.2 MMOL/L (3.5-5.1); TOTAL PROTEIN 6.2 G/DL (5.7-8.2)
== END ==
LOC: SKLAB7 10:41
PROVIDERS: ATTEND Internal Medicine
DX: I50.9 Heart failure, unspecified (principal); D64.9 Anemia, unspecified

== ENCOUNTER 2025-01-14 11:02 | Observation (INO) | payer MEDICARE ==
[~2025-01-14] VITALS: Ht 172.7 cm; Wt 68.6 kg
[2025-01-14] MEDS: MEMANTINE 5MG TABLET PO SCH (09:00)
[~2025-01-14 11:02] MED LIST changes: +LIDO1ADH93 TD; -LIDO5DIS41 TD
[2025-01-14 11:40] LABS: BASO % 0.4 % (0.0-1.0); EOS # 0.1 10^3/uL (0.0-0.5); EOS % 1.1 % (0.0-3.0); HEMATOCRIT 41.7 % (36.0-47.0); HEMOGLOBIN 13.7 g/dl (12.0-15.5); LYMPH # 1.1 10^3/uL (1.5-5.0); LYMPH % 14.2 % (24.0-44.0); MEAN CORPUSCULAR HEMOGLOBIN 29.8 pg (27.0-33.0); MEAN CORPUSCULAR HGB CONC 32.9 g/dl (32.0-36.5); MEAN CORPUSCULAR VOLUME 90.7 fl (80.0-96.0); MONO # 0.7 10^3/uL (0.0-0.8); MONO % 9.1 % (2.0-8.0); NEUTROPHILS # 5.7 10^3/uL (1.5-8.5); NEUTROPHILS % 74.9 % (36.0-66.0); PLATELET COUNT, AUTOMATED 280 10^3/uL (150-450); WHITE BLOOD COUNT 7.6 10^3/uL (4.0-10.0)
[2025-01-14 11:53] LABS: INR 1.22; PROTHROMBIN TIME 15.7 SECONDS (12.5-14.5)
[2025-01-14 12:12] LABS: BLOOD UREA NITROGEN 15 MG/DL (9-23); CALCIUM LEVEL 9.9 MG/DL (8.3-10.6); CARBON DIOXIDE LEVEL 27 MMOL/L (20-31); CHLORIDE LEVEL 104 MMOL/L (98-107); CREATININE FOR GFR 0.56 MG/DL (0.55-1.30); DIGOXIN LEVEL 0.7 NG/ML (0.8-2.0); GLOMERULAR FILTRATION RATE > 90.0 (>32); GLUCOSE, FASTING 124 MG/DL (74-106); POTASSIUM SERUM 3.7 MMOL/L (3.5-5.1); SODIUM LEVEL 142 MMOL/L (136-145)
[2025-01-14] MEDS ORDERED: OXAZEPAM 10MG CAP PO ONE (12:25)
[2025-01-14 14:06] LABS: PROCALCITONIN 0.05 ng/ml
[2025-01-14 14:56] LABS: KETONE, URINE AUTO RFX NEGATIVE (NEGATIVE); LEUKOCYTE ESTERASE UR AUTO RFX NEGATIVE (NEGATIVE); MUCUS, URINE RFX SMALL (NEGATIVE); NITRITE, URINE AUTO RFX NEGATIVE (NEGATIVE); RBC, URINE AUTO RFX 2 /HPF (0-3); SQUAM EPITHELIAL CELL UR AURFX 2 /HPF (0-6); WBC, URINE AUTO RFX 7 /HPF (0-3)
[2025-01-14 15:18] LABS: INR 1.21; PARTIAL THROMBOPLASTIN TIME 28.8 SECONDS (24.8-34.2); PROTHROMBIN TIME 15.6 SECONDS (12.5-14.5)
[2025-01-14] MEDS ORDERED: LEXA5TAB13 PO (16:15)
[2025-01-14] MEDS ORDERED: ARIC1TAB PO (16:15)
[2025-01-14] MEDS ORDERED: MILK400S12 PO (16:15)
[2025-01-14] MEDS ORDERED: HOME MED LIST COMPLETE! XX SCH (16:15)
[2025-01-14] MEDS ORDERED: FOLI1TAB11 PO (16:15)
[2025-01-14] MEDS ORDERED: SENN-23 PO (16:15)
[2025-01-14 17:05] VITALS: BP 119/63; TEMP 98.4; O2SAT 97
[2025-01-14] MEDS: ACETAMINOPHEN 325 MG TAB PO PRN (18:38)
[2025-01-14 20:46] VITALS: BP 115/67; TEMP 97.7; O2SAT 98
[2025-01-14] MEDS: ACETAMINOPHEN 650MG ER TAB (TYLENOL ARTHRITIS) PO SCH (20:58)
[2025-01-14] MEDS: ROSUVASTATIN 10 MG TAB PO SCH (20:59)
[2025-01-14] MEDS: SENOKOT S TAB PO SCH (20:59)
[2025-01-14] MEDS: GABAPENTIN 300 MG CAP PO SCH (20:59)
[2025-01-14] MEDS: predniSONE 5 MG TAB PO SCH (20:59)
[2025-01-14] MEDS: METOPROLOL SUCC. 50MG *XL* TAB PO SCH (20:59)
[2025-01-15 04:47] VITALS: BP 117/66; TEMP 97.5; O2SAT 98
[2025-01-15 06:23] LABS: HEMATOCRIT 41.1 % (36.0-47.0); HEMOGLOBIN 13.1 g/dl (12.0-15.5); MEAN CORPUSCULAR HEMOGLOBIN 29.3 pg (27.0-33.0); MEAN CORPUSCULAR HGB CONC 31.9 g/dl (32.0-36.5); MEAN CORPUSCULAR VOLUME 91.9 fl (80.0-96.0); PLATELET COUNT, AUTOMATED 275 10^3/uL (150-450); RED BLOOD COUNT 4.47 10^6/uL (4.00-5.40)
[2025-01-15 06:47] LABS: BLOOD UREA NITROGEN 13 MG/DL (9-23); CALCIUM LEVEL 9.3 MG/DL (8.3-10.6); CARBON DIOXIDE LEVEL 29 MMOL/L (20-31); CHLORIDE LEVEL 106 MMOL/L (98-107); CREATININE FOR GFR 0.53 MG/DL (0.55-1.30); GLOMERULAR FILTRATION RATE > 90.0 (>32); GLUCOSE, FASTING 102 MG/DL (74-106); POTASSIUM SERUM 4.2 MMOL/L (3.5-5.1); SODIUM LEVEL 144 MMOL/L (136-145)
[2025-01-15] MEDS: TIOTROPIUM BROM 2.5MCG/ACTUATION 4GM INH INH SCH (08:11)
[2025-01-15] MEDS: OMEPRAZOLE 20MG CAP PO SCH (09:07)
[2025-01-15] MEDS: DIGOXIN 0.125 MG TAB PO SCH (09:07)
[2025-01-15] MEDS: ESCITALOPRAM OXALATE 5 MG PO SCH (09:08)
[2025-01-15] MEDS: FOLIC ACID 1MG TAB PO SCH (09:08)
[2025-01-15] MEDS: DONEPEZIL 5 MG TAB PO SCH (09:08)
[2025-01-15] MEDS: SPIRONOLACTONE 25 MG TAB PO SCH (09:09)
[2025-01-15 12:33] VITALS: BP 100/65; TEMP 97.7; O2SAT 95
[2025-01-15 19:21] VITALS: BP 106/71; TEMP 97.9; O2SAT 98
[2025-01-15] MEDS ORDERED: ACET32TAB PO (19:48)
[2025-01-15 21:00] VITALS: BP 100/69
[2025-01-16 04:02] VITALS: BP 102/68; TEMP 97.9; O2SAT 98
[2025-01-16 05:48] LABS: HEMATOCRIT 41.2 % (36.0-47.0); HEMOGLOBIN 13.2 g/dl (12.0-15.5); MEAN CORPUSCULAR HEMOGLOBIN 29.9 pg (27.0-33.0); MEAN CORPUSCULAR VOLUME 93.2 fl (80.0-96.0); PLATELET COUNT, AUTOMATED 264 10^3/uL (150-450); RED BLOOD COUNT 4.42 10^6/uL (4.00-5.40)
[2025-01-16 06:10] LABS: BLOOD UREA NITROGEN 12 MG/DL (9-23); CALCIUM LEVEL 9.2 MG/DL (8.3-10.6); CARBON DIOXIDE LEVEL 30 MMOL/L (20-31); CHLORIDE LEVEL 106 MMOL/L (98-107); CREATININE FOR GFR 0.53 MG/DL (0.55-1.30); GLOMERULAR FILTRATION RATE > 90.0 (>32); GLUCOSE, FASTING 110 MG/DL (74-106); SODIUM LEVEL 144 MMOL/L (136-145)
[2025-01-16] MEDS: FERROUS GLUCONATE 324 MG TAB PO SCH (09:17)
[2025-01-16 09:22] VITALS: BP 100/80; O2SAT 95
== END 2025-01-16 12:34 ==
LOC: M ED 11:02 → M ED INP 11:03 → M MSPAV 16:55
PROVIDERS: ADMIT Internal Medicine; ATTEND Internal Medicine
DX: S00.83XA Contusion of other part of head, initial encounter (principal); S00.03XA Contusion of scalp, initial encounter; S40.011A Contusion of right shoulder, initial encounter; S80.01XA Contusion of right knee, initial encounter; W19.XXXA Unspecified fall, initial encounter; Y92.129 Unspecified place in nursing home as the place of occurrence of the external cause; I48.91 Unspecified atrial fibrillation; Z79.01 Long term (current) use of anticoagulants; F03.C0 Unspecified dementia, severe, without behavioral disturbance, psychotic disturbance, mood disturbance, and anxiety; J96.11 Chronic respiratory failure with hypoxia; Z99.81 Dependence on supplemental oxygen; C34.12 Malignant neoplasm of upper lobe, left bronchus or lung; R26.81 Unsteadiness on feet; J44.9 Chronic obstructive pulmonary disease, unspecified; I10 Essential (primary) hypertension; K21.9 Gastro-esophageal reflux disease without esophagitis; E78.5 Hyperlipidemia, unspecified; D50.9 Iron deficiency anemia, unspecified; Z90.89 Acquired absence of other organs; H26.9 Unspecified cataract; Z87.891 Personal history of nicotine dependence; Z91.040 Latex allergy status; Z88.0 Allergy status to penicillin; Z79.899 Other long term (current) drug therapy; Z79.52 Long term (current) use of systemic steroids
CPT/HCPCS: 36415; 51701; 70450; 70486; 71045; 72125; 73030; 77373; 80047; 80048; 80162; 81001; 83880; 84145; 85025; 85027; 85610; 85730; 87426; 93005; 94664; 97161; 97165; 97530; 97535; 99285; G0378; J7512

== ENCOUNTER 2025-03-13 07:32 | Day surgery (SDC) | payer MEDICARE, MEDICAID ==
[~2025-03-13] VITALS: Ht 157.5 cm; Wt 70.8 kg
[~2025-03-13 07:32] MED LIST changes: +ACET32TAB PO; +ARIC1TAB PO; +FOLI1TAB11 PO; +LEXA5TAB13 PO; +LR 1,000 ML IV SCH; +MILK400S12 PO; +SENN-23 PO
[2025-03-13] MEDS: FLURBIPROFEN 0.03% OPHTH SOLN 2.5 ML OS SCH (08:12)
[2025-03-13] MEDS: PHENYLEPHRINE 2.5% OPHTH SOL 2ML OS SCH (08:12)
[2025-03-13] MEDS: CYCLOPENTOLATE 1% OPHTH SOLN 2 ML BTL OS SCH (08:12)
[2025-03-13] MEDS: TETRACAINE 0.5% OPHTH SOLN 4ML OS SCH (08:12)
[2025-03-13] MEDS: LIDOCAINE 1% SDV 5 ML VIAL As Ordered ONE (09:38)
[2025-03-13] MEDS: CEFUROXIME 1 MG/0.1 ML INTRACAMERAL INJ As Ordered ONE (09:39)
[2025-03-13 09:56] VITALS: BP 119/63; TEMP 96.7; O2SAT 98
== END 2025-03-13 10:13 | disposition home or self-care (01) ==
LOC: M SDC 07:32
PROVIDERS: ATTEND Ophthalmology
DX: H25.12 Age-related nuclear cataract, left eye (principal); I48.91 Unspecified atrial fibrillation; R07.9 Chest pain, unspecified; I50.30 Unspecified diastolic (congestive) heart failure; E11.9 Type 2 diabetes mellitus without complications; G47.30 Sleep apnea, unspecified; Z91.040 Latex allergy status; Z88.0 Allergy status to penicillin; Z79.899 Other long term (current) drug therapy
CPT/HCPCS: 66984; J0697; J3010; V2632

== ENCOUNTER → 2025-04-18 | Outpatient (REF) | payer MEDICARE, MEDICAID ==
[~2025-04-18] MED LIST changes: -LR 1,000 ML IV SCH
[2025-04-18 11:53] LABS: PLATELET COUNT, AUTOMATED 244 10^3/uL (150-450)
[2025-04-18 12:31] LABS: DIGOXIN LEVEL 0.5 NG/ML (0.8-2.0)
[2025-04-18 12:32] LABS: TOTAL 25(OH) VITAMIN D 29.6 NG/ML (20.0-100.0)
[2025-04-18 12:36] LABS: ALT/SGPT 14.0 U/L (7.0-40); AST/SGOT 15.0 U/L (<34); CALCIUM LEVEL 9.9 MG/DL (8.3-10.6); CARBON DIOXIDE LEVEL 33.0 MMOL/L (20-31); CHLORIDE LEVEL 104.0 MMOL/L (98-107); CHOLESTEROL LEVEL 161.0 MG/DL (<200); CHOLESTEROL RISK RATIO 2.77 (<5); CREATININE FOR GFR 0.7 MG/DL (0.55-1.30); GLOMERULAR FILTRATION RATE 87.4 (>32); LDL CHOLESTEROL 63.4 MG/DL (<100); NON-HDL-C 103.0 MG/DL; POTASSIUM SERUM 4.2 MMOL/L (3.5-5.1); SODIUM LEVEL 145.0 MMOL/L (136-145); TRIGLYCERIDES LEVEL 198.0 MG/DL (<150)
== END ==
LOC: SKLAB7 07:00
PROVIDERS: ATTEND Internal Medicine
DX: J44.9 Chronic obstructive pulmonary disease, unspecified (principal); I10 Essential (primary) hypertension; E55.9 Vitamin D deficiency, unspecified; E78.5 Hyperlipidemia, unspecified; Z79.899 Other long term (current) drug therapy

== ENCOUNTER → 2025-04-18 | Outpatient (CLI) | payer MEDICARE, MEDICAID | LOC: M RAD 10:19 | PROVIDERS: ATTEND General Practice | DX: C34.12 Malignant neoplasm of upper lobe, left bronchus or lung (principal); I70.0 Atherosclerosis of aorta; I25.10 Atherosclerotic heart disease of native coronary artery without angina pectoris ==

== ENCOUNTER → 2025-04-25 | Outpatient (CLI) | payer MEDICARE, MEDICAID | LOC: M ONCR 11:38 | PROVIDERS: ATTEND General Practice | DX: C34.12 Malignant neoplasm of upper lobe, left bronchus or lung (principal); Z87.891 Personal history of nicotine dependence; Z92.3 Personal history of irradiation; Z88.0 Allergy status to penicillin; Z88.1 Allergy status to other antibiotic agents; Z79.52 Long term (current) use of systemic steroids; Z79.899 Other long term (current) drug therapy; Z79.01 Long term (current) use of anticoagulants ==

== ENCOUNTER → 2025-05-20 | Outpatient (REF) | payer MEDICARE, MEDICAID | LOC: SKLAB7 15:30 | PROVIDERS: ATTEND Nurse Practitioner | DX: R91.8 Other nonspecific abnormal finding of lung field (principal); R05.9 Cough, unspecified ==

== ENCOUNTER → 2025-05-20 | Outpatient (REF) | payer MEDICARE, MEDICAID | LOC: M RAD 15:22 | PROVIDERS: ATTEND Nurse Practitioner | DX: R05.9 Cough, unspecified (principal) ==

== ENCOUNTER → 2025-05-30 | Outpatient (REF) | payer MEDICARE, MEDICAID | LOC: SKLAB7 07:00 | PROVIDERS: ATTEND Nurse Practitioner Adult Health | DX: R06.2 Wheezing (principal) ==

== ENCOUNTER → 2025-05-31 | Outpatient (REF) | payer MEDICARE, MEDICAID | LOC: SKLAB7 09:24 | PROVIDERS: ATTEND Family Medicine | DX: J20.9 Acute bronchitis, unspecified (principal) ==

== ENCOUNTER → 2025-05-31 | Outpatient (REF) | payer MEDICARE, MEDICAID | LOC: SKLAB7 09:23 | PROVIDERS: ATTEND Family Medicine | DX: J20.9 Acute bronchitis, unspecified (principal) ==

== ENCOUNTER → 2025-06-06 | Outpatient (REF) | payer MEDICARE, MEDICAID ==
[2025-06-06 10:09] LABS: PLATELET COUNT, AUTOMATED 230 10^3/uL (150-450)
[2025-06-06 12:50] LABS: CALCIUM LEVEL 9.0 MG/DL (8.3-10.6); CARBON DIOXIDE LEVEL 34.0 MMOL/L (20-31); CHLORIDE LEVEL 103.0 MMOL/L (98-107); CHOLESTEROL LEVEL 139.0 MG/DL (<200); CHOLESTEROL RISK RATIO 2.81 (<5); CREATININE FOR GFR 0.68 MG/DL (0.55-1.30); DIGOXIN LEVEL 1.0 NG/ML (0.8-2.0); GLOMERULAR FILTRATION RATE 88.0 (>32); LDL CHOLESTEROL 58.4 MG/DL (<100); NON-HDL-C 89.6 MG/DL; POTASSIUM SERUM 4.2 MMOL/L (3.5-5.1); SODIUM LEVEL 145.0 MMOL/L (136-145); TRIGLYCERIDES LEVEL 156.0 MG/DL (<150)
[2025-06-06 13:21] LABS: ESTIMATED AVERAGE GLUCOSE 140.0 MG/DL (60-110)
== END ==
LOC: SKLAB7 07:41
PROVIDERS: ATTEND Family Medicine
DX: N18.9 Chronic kidney disease, unspecified (principal); D64.9 Anemia, unspecified; Z79.899 Other long term (current) drug therapy

== ENCOUNTER → 2025-08-15 | Outpatient (REF) | payer MEDICARE, MEDICAID ==
[2025-08-15 14:52] LABS: PLATELET COUNT, AUTOMATED 223 10^3/uL (150-450)
[2025-08-15 15:20] LABS: ALT/SGPT 19.0 U/L (7.0-40); AST/SGOT 18.0 U/L (<34); CALCIUM LEVEL 9.6 MG/DL (8.3-10.6); CARBON DIOXIDE LEVEL 33.0 MMOL/L (20-31); CHLORIDE LEVEL 100.0 MMOL/L (98-107); CREATININE FOR GFR 0.77 MG/DL (0.55-1.30); GLOMERULAR FILTRATION RATE 77.9 (>32); POTASSIUM SERUM 4.2 MMOL/L (3.5-5.1); SODIUM LEVEL 141.0 MMOL/L (136-145)
== END ==
LOC: SKLAB7 13:22
PROVIDERS: ATTEND Family Medicine
DX: R06.02 Shortness of breath (principal); J98.4 Other disorders of lung